=== PATIENT | female | born 1965 | race Caucasian/White ===

== ENCOUNTER → 2020-03-18 10:32 | Outpatient (BNVA) | payer OTHER, SELFPAY | PROVIDERS: PCP Internal Medicine; Visit Provider Internal Medicine Cardiovascular Disease | DX: R06.02 Shortness of breath (principal); I48.19 Other persistent atrial fibrillation; I45.6 Pre-excitation syndrome; I42.1 Obstructive hypertrophic cardiomyopathy | CPT/HCPCS: 93005; 99212 ==

== ENCOUNTER 2020-03-18 11:24 | Emergency (ER) | payer OTHER, SELFPAY ==
[2020-03-18] VITALS (15 sets, daily range): BP systolic 114–173; BP diastolic 62–97; PULSE 63–114; RESP 2–22; TEMP 36.6; O2SAT 89–98; BMI 17.4
--- NOTE | 2020-03-18 11:36 | ECG_ITS ---
Test Reason : POST CV Blood Pressure : / mmHG Vent. Rate : 113 BPM Atrial Rate : 113 BPM P-R Int : 144 ms QRS Dur : 158 ms QT Int : 414 ms P-R-T Axes : 088 -30 182 degrees QTc Int : 567 ms Sinus tachycardia Left axis deviation Left ventricular hypertrophy with QRS widening and repolarization abnormality Abnormal ECG When compared with ECG of 21-JUN-2017 20:32, Vent. rate has increased BY 47 BPM Jozmy-Ryshlcoyi-Xpfuf is no longer Present Referred By: Janneth Napier Electronically Signed By:JORY LOCO
--- NOTE | 2020-03-18 11:36 | XR_ITS ---
EXAMINATION: XR CHEST CLINICAL INFORMATION: Dyspnea. COMPARISON: CT chest and chest x-ray 09/22/2018. TECHNIQUE: Frontal view of the chest was obtained. FINDINGS: The lungs are well expanded with increased bilateral interstitial markings. No consolidation mass seen. Heart size and pulmonary vascularity are normal. There are mediastinal ronal and mediastinal sutures from previous intervention. No gross bony abnormality seen. XR/XR chest 1V IMPRESSION: Bilateral increased interstitial markings, unchanged to previous study 09/22/2018. Differential diagnoses include interstitial pneumonitis, edema or scarring.
--- NOTE | 2020-03-18 11:38 | ED_ITS ---
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, HOCM s/p septal myomectomy 2019, on chronic AC therapy went to cardiology with c/o dyspnea and feeling tired with palpitations referred to ED for cardioversion MD complaint: irregular heart beat and atrial fibrillation Onset (ago): week(s) (1) Duration: constant Severity: moderate Context: occurred during rest and occurred during exertion Arrhythmia history: atrial fibrillation Associated symptoms: shortness of breath and anxiety Related Data Home Medications Medication Instructions Recorded Confirmed apixaban 5 mg tablet 5 mg PO BID 03/18/20 03/18/20 methadone 5 mg/5 mL oral solution 65 mg PO DAILY ml 03/18/20 Previous Rx's Medication Instructions Recorded amiodarone 200 mg PO BID 14 Days #28 tab 03/18/20 Allergies Allergy/AdvReac Type Severity Reaction Status Date / Time No Known Allergies Allergy Verified 03/18/20 10:55 [No Known Allergies*] Review of Systems Review of Systems: Constitutional : No Fever, No Chills, pos fatigue ENT/Mouth : No sore throat, No Rhinorrhea, No Swallowing Difficulty Eyes: No Eye Pain, No Swelling, No Redness Cardiovascular : No Chest Pain, positive SOB, No Orthopnea, no Edema Respiratory : No Cough, No Sputum, No Wheezing, positive dyspnea Gastrointestinal : No Nausea, No Vomiting, No Diarrhea, No abdominal Pain, No Hematochezia, No Melena Genitourinary : No Dysuria, No Urinary Frequency, No Hematuria Musculoskeletal : No joint pain, No Myalgias Skin : No Skin Lesions, No rash Neuro : No Weakness, No Numbness, No Dizziness, No Headache Psych : pos Anxiety/Panic, No Depression Heme/Lymph: No Bruising, No Lymphadenopathy Endocrine : No Polyuria, No Polydipsia All other systems reviewed and are negative [facility] Past Medical History Attestation statement: The following information was validated with the patient. Medical History HOCM (hypertrophic obstructive cardiomyopathy) Paroxysmal atrial fibrillation WPW (Jqmdm-Rijopgstx-Wisnz syndrome) Surgical History History of heart surgery (~07/02/18) S/P ventricular septal myectomy Family History Family History (Updated 03/18/20 @ 10:56 by DAKOTAH Fragoso) Father COPD (chronic obstructive pulmonary disease) Heart disease Mother Heart disease Paternal Grandmother No problems noted. Social History Social History Alcohol intake: unknown Smoking Status: Current every day smoker Cigarettes Per Day: 6 Use of substances other than those prescribed or required for medical reasons: No Advance Directives: No Advance Directives Information Provided: Yes Physical Exam Vital Signs: Vital Signs: Last Vital Signs Temp 97.9 F 03/18/20 11:50 Pulse 92 03/18/20 15:09 Resp 20 03/18/20 15:01 BP 143/76 H 03/18/20 15:09 Pulse Ox 98 03/18/20 15:01 Body Mass Index 17.4 Appearance: Alert. Oriented X3. No acute distress. Eyes: Pupils equal, round and reactive to light. ENT: Pharynx normal. Neck: Normal inspection. Neck supple. CVS: rapid irreguar heart rate and rhythm. Pulses normal. Respiratory: No respiratory distress. Breath sounds normal. Abdomen: Soft and nontender. Skin: Skin warm and dry. Normal skin color. Normal skin turgor. Extremities: No lower extremity edema. No calf ttp Neuro: Oriented X 3. No motor deficit. No sensory deficit. Course Course Course Narrative: cardiology sent post cardioversion EKG - still feels flutter present wants procainamide drip started repeat EKG, NSR confirmed with cardiology hold gtt start on PO amiodarone 200mg PO BID for outpatient treatment, discussed BNP (likely due to afib and diastolic dysfunction okay for DC) HR controlled, feels better, BP stable 98% on RA at this time, much more awake, feels fine trop due to demand has no chest pain doubt ACS Procedures Procedure Narrative Procedure Narrative: consent obtained front to back placement of pads 100J synchronized cardioversion done - no complications, EKG ?LBBB with persistent flutter vs LBBB with sinus tach Procedural Sedation Indication: other (cardioversion) ASA Class: II Time of Last PO Intake: 10:00 (pm) Preparation: taxonomist applied, pulse oximeter, capnometry used, supplemental O2 applied, suction/airway equipment at bedside and IV secured Midazolam: IV Ketamine: IV Ketamine dose (mg): 75 Patient Tolerated Procedure: well Complications: none Additional Comments: used 0.5mg versed as pretreatment MDM - Arrhythmia/Palpitations MDM Narrative Medical decision making narrative: 54 yo female with WPW sent over for symptomatic afib on chronic AC therapy with strict compliance - plan to cardiovert in ED and possibly start on procainamide if she does not convert - will attempt cardioversion, patient NPO since last night Lab Data Result diagrams: 03/18/20 12:18 03/18/20 12:18 Labs: Lab Results 03/18/20 03/18/20 03/18/20 Range/Units 12:18 12:18 12:18 WBC 6.5 (4.8-10.8) X10*3/uL RBC 5.81 H (4.20-5.50) X10*6/uL Hgb 15.6 (12.0-16.0) g/dl Hct 48.8 H (37-47) % MCV 84.0 (80-98) fL MCH 26.9 L (27.0-33.0) pg MCHC 32.0 (31.0-35.0) g/dl RDW 16.4 H (11.0-16.0) % Plt Count 221 (160-400) X10*3/uL MPV Not Reportable Immature Gran % (Auto) 0.5 H (0.0-0.4) % Neut % (Auto) 65.3 (45-73) % Lymph % (Auto) 22.7 (20-40) % [place] % (Auto) 7.7 (2-11) % Eos % (Auto) 2.3 (0-4) % Baso % (Auto) 1.5 (0-2) % Lymph # (Auto) 1.5 (1.2-4.9) X10*3/uL [place] # (Auto) 0.5 (0.1-1.2) X10*3/uL Eos # (Auto) 0.2 (0.0-0.4) X10*3/uL Baso # (Auto) 0.1 (0.0-0.2) X10*3/uL Abs Immat Gran (auto) 0.03 (0.00-0.03) X10*3/uL Absolute Neuts (auto) 4.2 (2.0-8.3) X10*3/uL Absolute Nucleated RBC 0.000 (0.0-0.012) X10*3/uL Nucleated RBC % (auto) 0.0 (0.0-0.2) /100WBC PT 24.8 H (10.8-13.0) SEC INR 2.1 H (0.9-1.1) APTT 46.8 H (24.1-38.0) SEC Sodium 136 (135-145) mmol/L Potassium 4.8 (3.3-5.1) mmol/l Chloride 101 (96-108) mmol/L Carbon Dioxide 24 (22-29) mmol/L Anion Gap 16 (12-20) BUN 9 (9-16) mg/dL Creatinine 0.99 (0.5-1.4) mg/dL Estim Creat Clear Calc 43.9 Estimated GFR 58 Random Glucose 108 (60-115) mg/dL Calcium 9.7 (8.4-10.2) mg/dL Magnesium 2.5 (1.6-2.6) mg/dL Total Bilirubin 1.3 H (0.0-1.0) mg/dL Direct Bilirubin 0.6 H (0.0-0.5) mg/dL AST 20 (5-31) U/L ALT 16 (0-31) U/L Alkaline Phosphatase 146 H (39-117) U/L Troponin I High Sens (<3.5-17.0) ng/L B-Natriuretic Peptide Total Protein 7.9 (6.5-8.0) g/dL Albumin 3.9 (3.5-5.0) g/dL COVID-19 (RY) (Negative) COVID-19 Clin Com 03/18/20 03/18/20 03/18/20 Range/Units 12:18 12:18 12:18 WBC (4.8-10.8) X10*3/uL RBC (4.20-5.50) X10*6/uL Hgb (12.0-16.0) g/dl Hct (37-47) % MCV (80-98) fL MCH (27.0-33.0) pg MCHC (31.0-35.0) g/dl RDW (11.0-16.0) % Plt Count (160-400) X10*3/uL MPV Immature Gran % (Auto) (0.0-0.4) % Neut % (Auto) (45-73) % Lymph % (Auto) (20-40) % [place] % (Auto) (2-11) % Eos % (Auto) (0-4) % Baso % (Auto) (0-2) % Lymph # (Auto) (1.2-4.9) X10*3/uL [place] # (Auto) (0.1-1.2) X10*3/uL Eos # (Auto) (0.0-0.4) X10*3/uL Baso # (Auto) (0.0-0.2) X10*3/uL Abs Immat Gran (auto) (0.00-0.03) X10*3/uL Absolute Neuts (auto) (2.0-8.3) X10*3/uL Absolute Nucleated RBC (0.0-0.012) X10*3/uL Nucleated RBC % (auto) (0.0-0.2) /100WBC PT (10.8-13.0) SEC INR (0.9-1.1) APTT (24.1-38.0) SEC Sodium (135-145) mmol/L Potassium (3.3-5.1) mmol/l Chloride (96-108) mmol/L Carbon Dioxide (22-29) mmol/L Anion Gap (12-20) BUN (9-16) mg/dL Creatinine (0.5-1.4) mg/dL Estim Creat Clear Calc Estimated GFR Random Glucose (60-115) mg/dL Calcium (8.4-10.2) mg/dL Magnesium (1.6-2.6) mg/dL Total Bilirubin (0.0-1.0) mg/dL Direct Bilirubin (0.0-0.5) mg/dL AST (5-31) U/L ALT (0-31) U/L Alkaline Phosphatase (39-117) U/L Troponin I High Sens 30.4 H (<3.5-17.0) ng/L B-Natriuretic Peptide Cancelled 1079 H Total Protein (6.5-8.0) g/dL Albumin (3.5-5.0) g/dL COVID-19 (RY) Negative (Negative) COVID-19 Clin Com See Note ECG Data Attestation: I personally reviewed and interpreted this ECG as follows: ECG interpretation date: 03/18/20 ECG interpretation time: 12:24 Interpretation: Rate: 113 Rhythm: tachycardia, regular, wide complex [place]: left LBBB ST T wave : inverted t waves lateral leads, no GENNA qTC: prolonged prior studies: changed from prior The study has been interpreted contemporaneously by me. . EKG #2 Rate: 99 Rhythm: NSR [place]: left Normal P waves. Normal DANIELA. LBBB ST T wave : inverted t waves lateral leads V2-V4, no GENNA qTC: prolonged prior studies: changed from prior The study has been interpreted contemporaneously by me. . Critical Care Time Critical Care Time Critical Care Time: Yes Total Critical Care Time: 60 Attestation: I attest to this time spent taking care of the patient Discharge Plan Discharge Clinical Impression: Acute dyspnea, Atrial fibrillation with rapid ventricular response Patient Disposition: Home, Self-Care Instructions: A-fib (Atrial Fibrillation) (ED), Moderate Sedation (ED), Cardioversion (DC) Additional Instructions: return to ED for any worsening symptoms or concerns continue to take your medications Prescriptions: New amiodarone 200 mg tablet 200 mg PO BID 14 Days Qty: 28 RF: 0 No Action Eliquis 5 mg tablet 5 mg PO BID RF: 0 methadone 5 mg/5 mL solution 65 mg PO DAILY RF: 0 Referrals: Ned Villalobos MD [Physician] - 2 days
[2020-03-18] MEDS: Ketamine HCl/NS 50 MG/5 ML SYRINGE IVPUSH (12:01)
[2020-03-18] MEDS: Midazolam HCl/PF 2 MG/2 ML VIAL 0.5 MG IVPUSH (12:01)
[2020-03-18] MEDS: Ketamine HCl/NS 50 MG/5 ML SYRINGE 25 MG IVPUSH (12:02)
--- NOTE | 2020-03-18 12:09 | PC.NURSE ---
Pt presented in a rapid a-fib with ectopy. An IV was placed and she was given versed and ketamine. A synchronized cardioversion with 100j was performed by . Pt converted to SR with visable p waives but HR increased with a question of underlying flutter per embedded firmware developer. Pt remains disassociated with ketamine but appears comfortable. VSS.
[2020-03-18 12:26] LABS: MANUAL DIFF FLAG NO
[2020-03-18 12:31] LABS: Basophils Absolute Auto 0.1 X10*3/uL (0.0-0.2); Basophils Percent Auto 1.5 % (0-2); Eosinophils Absolute Auto 0.2 X10*3/uL (0.0-0.4); Eosinophils Percent Auto 2.3 % (0-4); Hematocrit 48.8 % (37-47); Hemoglobin 15.6 g/dl (12.0-16.0); Imm Gran Abs Auto 0.03 X10*3/uL (0.00-0.03); Imm Gran Pct Auto 0.5 % (0.0-0.4); Lymphocytes Absolute Auto 1.5 X10*3/uL (1.2-4.9); Lymphocytes Percent Auto 22.7 % (20-40); Mean Corpuscular Hemoglobin 26.9 pg (27.0-33.0); Monocytes Absolute Auto 0.5 X10*3/uL (0.1-1.2); Monocytes Percent Auto 7.7 % (2-11); Neutrophils Absolute Auto 4.2 X10*3/uL (2.0-8.3); Neutrophils Percent Auto 65.3 % (45-73); Platelet Count 221 X10*3/uL (160-400); Red Blood Count 5.81 X10*6/uL (4.20-5.50); Red Cell Distribution Width 16.4 % (11.0-16.0); White Blood Count 6.5 X10*3/uL (4.8-10.8)
--- NOTE | 2020-03-18 12:31 | PC.NURSE ---
HR/Rhythm appears to be NSR. Dr Napier aware, repeat EKG being done.
[2020-03-18 12:32] LABS: INTERNATIONAL NORM RATIO 2.1 (0.9-1.1); Prothrombin Time 24.8 SEC (10.8-13.0)
--- NOTE | 2020-03-18 12:32 | ECG_ITS ---
Test Reason : REPEAT Blood Pressure : / mmHG Vent. Rate : 099 BPM Atrial Rate : 099 BPM P-R Int : 128 ms QRS Dur : 144 ms QT Int : 432 ms P-R-T Axes : 085 -26 164 degrees QTc Int : 554 ms Sinus rhythm with Premature atrial complexes Preexcitation patten noted Abnormal ECG When compared with ECG of 18-MAR-2020 12:00, No significant changes seen Referred By: Janneth Napier Electronically Signed By:JORY LOCO
[2020-03-18 12:35] LABS: Partial Thromboplastin Time 46.8 SEC (24.1-38.0)
[2020-03-18] MEDS: LORazepam 2 MG/ML VIAL 0.5 MG IVPUSH (12:44)
[2020-03-18 12:45] LABS: COVID-19 Test Negative (Negative)
--- NOTE | 2020-03-18 12:47 | PC.NURSE ---
Pt had an episode of nausea and vomiting. Dr Napier aware, and placed orders. Pt medicated per emar.
[2020-03-18 12:57] LABS: Alanine Aminotransferase 16 U/L (0-31); Albumin Level 3.9 g/dL (3.5-5.0); Alkaline Phosphatase 146 U/L (39-117); Anion Gap 16 (12-20); Aspartate Amino Transferase 20 U/L (5-31); Bilirubin Direct 0.6 mg/dL (0.0-0.5); Bilirubin Total 1.3 mg/dL (0.0-1.0); Blood Urea Nitrogen 9 mg/dL (9-16); Calcium 9.7 mg/dL (8.4-10.2); Carbon Dioxide 24 mmol/L (22-29); Chloride 101 mmol/L (96-108); Creatinine Clr Calc Pharmacy 43.9; Estimated Glomerular Filt Rate 58; Glucose Random 108 mg/dL (60-115); Magnesium 2.5 mg/dL (1.6-2.6); Potassium 4.8 mmol/l (3.3-5.1); Sodium 136 mmol/L (135-145); Total Protein 7.9 g/dL (6.5-8.0)
[2020-03-18 13:07] LABS: B Type Natriuretic Peptide 1079 pg/mL (<100); Troponin-I High Sensitivity 30.4 ng/L (<3.5-17.0)
--- NOTE | 2020-03-18 13:41 | PC.NURSE ---
lungs - diminished all lobes.
--- NOTE | 2020-03-18 13:41 | PC.NURSE ---
pt has a non-prod cough. aware
[2020-03-18] MEDS: Amiodarone HCL 200 MG TABLET PO (15:09)
== END 2020-03-18 15:45 | disposition home or self-care (01) ==
PROVIDERS: Emergency Provider Emergency Medicine; PCP Internal Medicine
DX: I48.20 Chronic atrial fibrillation, unspecified (principal); R06.00 Dyspnea, unspecified; Z20.822 Contact with and (suspected) exposure to COVID-19; Z79.899 Other long term (current) drug therapy
CPT/HCPCS: 36415; 71045; 80048; 80076; 83735; 83880; 84484; 85025; 85610; 85730; 87635; 93005; 96374; 96375; 99285; 99291; J2060; J2250

== ENCOUNTER → 2020-04-01 12:53 | Outpatient (BNVA) | payer OTHER, SELFPAY | PROVIDERS: PCP Internal Medicine; Visit Provider Nurse Practitioner Family | DX: I48.92 Unspecified atrial flutter (principal); I48.19 Other persistent atrial fibrillation; I42.1 Obstructive hypertrophic cardiomyopathy; I45.6 Pre-excitation syndrome | CPT/HCPCS: 93005; 99212 ==

== ENCOUNTER 2020-04-30 08:51 | Outpatient (REF) | payer OTHER, SELFPAY ==
[2020-04-30 09:56] LABS: MANUAL DIFF FLAG SCAN; Mean Corpuscular Hemoglobin 25.9 pg (27.0-33.0); SCAN SMEAR FLAG 1
[2020-04-30 09:58] LABS: Basophils Absolute Auto 0.1 X10*3/uL (0.0-0.2); Basophils Percent Auto 0.6 % (0-2); Eosinophils Absolute Auto 0.1 X10*3/uL (0.0-0.4); Eosinophils Percent Auto 0.7 % (0-4); Hematocrit 40.2 % (37-47); Hemoglobin 12.9 g/dl (12.0-16.0); Imm Gran Abs Auto 0.05 X10*3/uL (0.00-0.03); Imm Gran Pct Auto 0.5 % (0.0-0.4); Lymphocytes Absolute Auto 1.4 X10*3/uL (1.2-4.9); Lymphocytes Percent Auto 13.6 % (20-40); Mean Corpuscular HGB Conc 32.1 g/dl (31.0-35.0); Mean Corpuscular Volume 80.6 fL (80-98); Monocytes Absolute Auto 0.7 X10*3/uL (0.1-1.2); Monocytes Percent Auto 6.3 % (2-11); Neutrophils Absolute Auto 8.3 X10*3/uL (2.0-8.3); Neutrophils Percent Auto 78.3 % (45-73); PLT CLUMP 1; Red Blood Count 4.99 X10*6/uL (4.20-5.50); Red Cell Distribution Width 17.2 % (11.0-16.0)
[2020-04-30 10:02] LABS: PLT ABN DIST 1
[2020-04-30 10:04] LABS: INTERNATIONAL NORM RATIO 2.8 (0.9-1.1); Prothrombin Time 33.5 SEC (10.8-13.0)
[2020-04-30 10:16] LABS: Platelet Count 160 X10*3/uL (160-400); White Blood Count 10.6 X10*3/uL (4.8-10.8)
[2020-04-30 10:17] LABS: SLIDE REVIEW VERIFIED
[2020-04-30 10:25] LABS: Anion Gap 15 (12-20); Blood Urea Nitrogen 17 mg/dL (9-16); Calcium 9.4 mg/dL (8.4-10.2); Carbon Dioxide 20 mmol/L (22-29); Chloride 103 mmol/L (96-108); Estimated Glomerular Filt Rate > 60; Glucose Random 106 mg/dL (60-115); Potassium 4.4 mmol/L (3.3-5.1); Sodium 134 mmol/L (135-145)
== END 2020-04-30 08:52 | disposition home or self-care (01) ==
LOC: HO.LAB 08:51
PROVIDERS: PCP Internal Medicine; Visit Provider Internal Medicine Cardiovascular Disease
DX: Z01.810 Encounter for preprocedural cardiovascular examination (principal)
CPT/HCPCS: 36415; 80048; 85025; 85610

== ENCOUNTER 2020-05-30 21:52 | Emergency (ER) | payer OTHER, SELFPAY ==
--- NOTE | 2020-05-30 | ECG_ITS ---
Test Reason : REPEAT Blood Pressure : / mmHG Vent. Rate : 055 BPM Atrial Rate : 055 BPM P-R Int : 128 ms QRS Dur : 158 ms QT Int : 530 ms P-R-T Axes : 080 -28 167 degrees QTc Int : 507 ms Sinus bradycardia Left ventricular hypertrophy with repolizeration abnormality. Ventricular pre-excitation, WPW pattern type B Abnormal ECG When compared with ECG of 30-MAY-2020 22:17, Cqkcu-Lnqyigfnh-Kvpvb is now Present Referred By: Millie Krueger Electronically Signed By:Osvaldo Rai
--- NOTE | 2020-05-30 | ECG_ITS ---
Test Reason : SHORTNESS OF BREATH Blood Pressure : / mmHG Vent. Rate : 054 BPM Atrial Rate : 054 BPM P-R Int : 126 ms QRS Dur : 160 ms QT Int : 534 ms P-R-T Axes : 093 -28 165 degrees QTc Int : 506 ms Sinus bradycardia Left ventricular hypertrophy with QRS widening and repolarization abnormality Inferior infarct , age undetermined Abnormal ECG When compared with ECG of 18-MAR-2020 12:32, Premature atrial complexes are no longer Present Vent. rate has decreased BY 45 BPM Referred By: Generic ED Physician Electronically Signed By:Osvaldo Rai
--- NOTE | ~2020-05-30 | XR_ITS ---
EXAMINATION: CHEST 1 VIEW CLINICAL INFORMATION: Shortness of breath. COMPARISON: 03/18/2020. TECHNIQUE: An AP view of the chest is provided. FINDINGS: The cardiac silhouette is stable. Intact midline sternal wires are present. The mediastinal and hilar contours are unremarkable. There are neither pleural effusions nor pneumothoraces. Diffuse interstitial prominence is slightly more prominent than on the prior exam. There are no consolidations. The osseous structures are stable. XR/XR chest 1V IMPRESSION: No consolidations. Slight interval increase in prominence of chronic interstitial disease.
[2020-05-30 21:56] VITALS: PULSE 65; O2SAT 98
[2020-05-30 22:08] VITALS: BP 128/91; PULSE 78; RESP 20; TEMP 36.6; O2SAT 95; BMI 18.8
[2020-05-30 23:09] VITALS: BP 154/76; PULSE 60; RESP 15; TEMP 37.1; O2SAT 95
[2020-05-30 23:22] VITALS: BP 146/68; PULSE 58; RESP 18; O2SAT 95
[2020-05-31] VITALS: BP 126/55; PULSE 58; RESP 16; O2SAT 93
[2020-05-31 00:16] LABS: Eosinophils Absolute Auto 0.1 X10*3/uL (0.0-0.4); Imm Gran Abs Auto 0.02 X10*3/uL (0.00-0.03); Imm Gran Pct Auto 0.3 % (0.0-0.4); MANUAL DIFF FLAG SCAN; SCAN SMEAR FLAG 1
[2020-05-31 00:18] LABS: Basophils Absolute Auto 0.1 X10*3/uL (0.0-0.2); Eosinophils Percent Auto 1.6 % (0-4); Hemoglobin 13.4 g/dl (12.0-16.0); Lymphocytes Absolute Auto 1.5 X10*3/uL (1.2-4.9); Mean Corpuscular HGB Conc 30.5 g/dl (31.0-35.0); Mean Corpuscular Hemoglobin 24.2 pg (27.0-33.0); Mean Corpuscular Volume 79.6 fL (80-98); Monocytes Absolute Auto 0.5 X10*3/uL (0.1-1.2); Monocytes Percent Auto 7.1 % (2-11); Neutrophils Absolute Auto 5.1 X10*3/uL (2.0-8.3); Platelet Count 178 X10*3/uL (160-400); Red Blood Count 5.53 X10*6/uL (4.20-5.50); Red Cell Distribution Width 17.4 % (11.0-16.0); White Blood Count 7.3 X10*3/uL (4.8-10.8)
[2020-05-31 00:23] LABS: PLT ABN DIST 1
[2020-05-31 00:27] LABS: SLIDE REVIEW VERIFIED
[2020-05-31 00:29] LABS: Alanine Aminotransferase 11 U/L (0-31); Alkaline Phosphatase 147 U/L (39-117); Anion Gap 12 (12-20); Aspartate Amino Transferase 20 U/L (5-31); Bilirubin Direct 0.2 mg/dL (0.0-0.5); Bilirubin Total 0.6 mg/dL (0.0-1.0); Blood Urea Nitrogen 5 mg/dL (9-16); Calcium 9.1 mg/dL (8.4-10.2); Carbon Dioxide 27 mmol/L (22-29); Chloride 103 mmol/L (96-108); Creatinine Clr Calc Pharmacy 49.8; Estimated Glomerular Filt Rate > 60; Glucose Random 96 mg/dL (60-115); Sodium 138 mmol/L (135-145); Total Protein 7.9 g/dL (6.5-8.0)
[2020-05-31 00:38] LABS: B Type Natriuretic Peptide 2640 pg/mL (<100); Troponin-I High Sensitivity 32.3 ng/L (<3.5-17.0)
[2020-05-31 00:39] LABS: INTERNATIONAL NORM RATIO 1.9 (0.9-1.1); Prothrombin Time 23.1 SEC (10.8-13.0)
[2020-05-31] MEDS: Furosemide 40 MG/4 ML VIAL IVPUSH (01:58)
[2020-05-31 02:00] VITALS: BP 133/59; PULSE 57; RESP 16; O2SAT 93
--- NOTE | 2020-05-31 03:07 | ED.SOB ---
HPI - SOB/Dyspnea General Chief Complaint: Dyspnea Stated Complaint: anxiety Time Seen by Provider: 05/30/20 22:20 Source: patient Mode of arrival: ambulatory Limitations: no limitations History of Present Illness HPI Narrative: Patient comes to the emergency room complaining of new onset of orthopnea, bilateral edema, mild shortness of breath on exertion. Patient states that she has no chest pain, no palpitations, no cough, no shortness of breath at rest. Patient had a cardiac ablation on May 06 for atrial fibrillation and Cbltc-Sbltgpbwz-Diwtr, she is currently on a Holter monitor. Patient states she is on Eliquis. Related Data Home Medications Medication Instructions Recorded Confirmed apixaban 5 mg tablet 5 mg PO BID 03/18/20 05/30/20 methadone 5 mg/5 mL oral solution 65 mg PO DAILY ml 03/18/20 05/30/20 albuterol 90 mcg INHALATION Q4-6H PRN 05/30/20 05/30/20 Previous Rx's Medication Instructions Recorded amiodarone 200 mg PO BID 14 Days #28 tab 03/18/20 furosemide [Lasix] 10 mg PO BID #10 tab 05/31/20 Allergies Allergy/AdvReac Type Severity Reaction Status Date / Time No Known Allergies Allergy Verified 03/18/20 10:55 [No Known Allergies*] Review of Systems Review of Systems: Constitutional : No Weight loss, No Fever, No Chills, No Night Sweats, No Fatigue, No Malaise ENT/Mouth : No Hearing loss, No Ear Pain, No Nasal Congestion, No Sinus Pain, No Hoarseness, No sore throat, No Rhinorrhea, No Swallowing Difficulty Eyes: No Eye Pain, No Swelling, No Redness, No Foreign Body, No Discharge, No Vision Changes Cardiovascular : No Chest Pain, complaining of Dyspnea on Exertion and Orthopnea, new onset bilateral lower extremity edema, no palpitations, no shortness of breath at rest Respiratory : No Cough, No Sputum, No Wheezing, No Smoke Exposure Gastrointestinal : No Nausea, No Vomiting, No Diarrhea, No Constipation, No abdominal Pain, No Hematochezia, No Melena Genitourinary : no irregular bleeding, No Dysuria, No Urinary Frequency, No Hematuria, No Urinary Incontinence, No Urgency, No Flank Pain, No Urinary Flow Changes, No Hesitancy Musculoskeletal : No joint pain, No Myalgias, No Joint Swelling Skin : No Skin Lesions, No rash Neuro : No Weakness, No Numbness, No Paresthesias, No Loss of Consciousness, No Dizziness, No Headache Psych : No Anxiety/Panic, No Depression, No SI/HI/AH/VH, No Social Issues, Heme/Lymph: No Bruising, No Bleeding,No Lymphadenopathy Endocrine : No Polyuria, No Polydipsia, No Temperature Intolerance [facility] Past Medical History Medical History (Updated 05/31/20 @ 03:23 by Millie Krueger MD) HOCM (hypertrophic obstructive cardiomyopathy) Paroxysmal atrial fibrillation WPW (Ajrso-Sjmcqgtnj-Qvdhe syndrome) Surgical History (Updated 05/31/20 @ 03:13 by Millie Krueger MD) H/O cardiac radiofrequency ablation History of heart surgery (~07/02/18) S/P ventricular septal myectomy Family History Family History Father COPD (chronic obstructive pulmonary disease) Heart disease Mother Heart disease Paternal Grandmother No problems noted. Social History Social History Alcohol intake: unknown Smoking Status: Current every day smoker Cigarettes Per Day: 6 Use of substances other than those prescribed or required for medical reasons: Yes Substance Use Type: Heroin Last Used Substance: Weeks (ago) Advance Directives: No Advance Directives Information Provided: No Physical Exam Vital Signs: Vital Signs: Last Vital Signs Temp 98.8 F 05/30/20 23:09 Pulse 57 05/31/20 02:00 Resp 16 05/31/20 02:00 BP 133/59 L 05/31/20 02:00 Pulse Ox 93 05/31/20 02:00 Body Mass Index 18.8 Appearance: Alert. Oriented X3. No acute distress. Eyes: Pupils equal, round and reactive to light. ENT: Pharynx normal. Neck: Normal inspection. Neck supple. No lymph nodes noted. No crepitus CVS: Normal heart rate and rhythm. Pulses normal. Normal S1 and S2 Respiratory: No respiratory distress. Mild bilateral crackles No Wheezing. No rales Abdomen: Soft and nontender. No rigidity. No distention. good BS x4 Skin: Skin warm and dry. Normal skin color. Extremities: Bilateral lower extremity edema, mostly on both feet, +2, +1 at the ankle and above bilaterally Neuro: Oriented X 3. No motor deficit. No sensory deficit. Moving all extermities. No slurred speech. Course Course Course Narrative: Patient's EKG shows no changes from February 2020. Patient's troponin 32.3, seems that this is the patient's baseline, has had prior troponins at the same level. It was noted that patient is bradycardic, patient states that since she had her cardiac ablation on May 06, she is known to be bradycardic but asymptomatic Troponin 2 has been pending for 2 hours, at this time the nursing staff is significantly reduced and we do not have any techs in the ER at all I discussed the patient with Dr. Barber, patient is being admitted for CHF exacerbation. Patient received 40 mg of IV Lasix. Patient remains asymptomatic, only become short of breath with exertion. Patient is not tachycardic, not hypoxic, no lower extremity pain, patient is on Eliquis, PE is not suspected at this time Patient states that she feels very well, has been walking to the bathroom, and around the ED without feeling short of breath. Patient's nurse walked with the patient measuring her oxygen saturation while walking, lowest oxygen saturation 94%, patient states that she is not short of breath anymore. Patient also states that the swelling in her legs resolved after Lasix. I asked the patient to stay in the hospital, patient declined, asks to be discharged. Patient says she has an appointment with her quality assurance analyst in 3 days, I asked the patient to return to the emergency room she has any new symptoms at any time. Patient does not have any Lasix at home, a prescription will be sent to her pharmacy. I discussed with the patient the risks of leaving against medical advice including . Patient states that she is aware, states that if she has any new or worsening symptoms, she will return immediately to the emergency room MDM - SOB/Dyspnea Lab Data Result diagrams: 05/30/20 22:30 05/30/20 22:30 Labs: Lab Results 05/30/20 05/30/20 05/30/20 Range/Units 22:30 22:30 22:30 WBC 7.3 (4.8-10.8) X10*3/uL RBC 5.53 H (4.20-5.50) X10*6/uL Hgb 13.4 (12.0-16.0) g/dl Hct 44.0 (37-47) % MCV 79.6 L (80-98) fL MCH 24.2 L (27.0-33.0) pg MCHC 30.5 L (31.0-35.0) g/dl RDW 17.4 H (11.0-16.0) % Plt Count 178 (160-400) X10*3/uL MPV Not Reportable Immature Gran % (Auto) 0.3 (0.0-0.4) % Neut % (Auto) 69.0 (45-73) % Lymph % (Auto) 21.0 (20-40) % Dickson % (Auto) 7.1 (2-11) % Eos % (Auto) 1.6 (0-4) % Baso % (Auto) 1.0 (0-2) % Lymph # (Auto) 1.5 (1.2-4.9) X10*3/uL Dickson # (Auto) 0.5 (0.1-1.2) X10*3/uL Eos # (Auto) 0.1 (0.0-0.4) X10*3/uL Baso # (Auto) 0.1 (0.0-0.2) X10*3/uL Abs Immat Gran (auto) 0.02 (0.00-0.03) X10*3/uL Absolute Neuts (auto) 5.1 (2.0-8.3) X10*3/uL Absolute Nucleated RBC 0.000 (0.0-0.012) X10*3/uL Nucleated RBC % (auto) 0.0 (0.0-0.2) /100WBC Smear Tech's Comments VERIFIED PT 23.1 H D (10.8-13.0) SEC INR 1.9 H (0.9-1.1) Sodium 138 (135-145) mmol/L Potassium 4.0 (3.3-5.1) mmol/L Chloride 103 (96-108) mmol/L Carbon Dioxide 27 (22-29) mmol/L Anion Gap 12 (12-20) BUN 5 L D (9-16) mg/dL Creatinine 0.94 (0.5-1.4) mg/dL Estim Creat Clear Calc 49.8 Estimated GFR > 60 Random Glucose 96 (60-115) mg/dL Calcium 9.1 (8.4-10.2) mg/dL Total Bilirubin 0.6 (0.0-1.0) mg/dL Direct Bilirubin 0.2 (0.0-0.5) mg/dL AST 20 (5-31) U/L ALT 11 (0-31) U/L Alkaline Phosphatase 147 H (39-117) U/L Troponin I High Sens (<3.5-17.0) ng/L B-Natriuretic Peptide (<100) pg/mL Total Protein 7.9 (6.5-8.0) g/dL Albumin 4.0 (3.5-5.0) g/dL 05/30/20 05/31/20 Range/Units 22:30 03:09 WBC (4.8-10.8) X10*3/uL RBC (4.20-5.50) X10*6/uL Hgb (12.0-16.0) g/dl Hct (37-47) % MCV (80-98) fL MCH (27.0-33.0) pg MCHC (31.0-35.0) g/dl RDW (11.0-16.0) % Plt Count (160-400) X10*3/uL MPV Immature Gran % (Auto) (0.0-0.4) % Neut % (Auto) (45-73) % Lymph % (Auto) (20-40) % Dickson % (Auto) (2-11) % Eos % (Auto) (0-4) % Baso % (Auto) (0-2) % Lymph # (Auto) (1.2-4.9) X10*3/uL Dickson # (Auto) (0.1-1.2) X10*3/uL Eos # (Auto) (0.0-0.4) X10*3/uL Baso # (Auto) (0.0-0.2) X10*3/uL Abs Immat Gran (auto) (0.00-0.03) X10*3/uL Absolute Neuts (auto) (2.0-8.3) X10*3/uL Absolute Nucleated RBC (0.0-0.012) X10*3/uL Nucleated RBC % (auto) (0.0-0.2) /100WBC Smear Tech's Comments PT (10.8-13.0) SEC INR (0.9-1.1) Sodium (135-145) mmol/L Potassium (3.3-5.1) mmol/L Chloride (96-108) mmol/L Carbon Dioxide (22-29) mmol/L Anion Gap (12-20) BUN (9-16) mg/dL Creatinine (0.5-1.4) mg/dL Estim Creat Clear Calc Estimated GFR Random Glucose (60-115) mg/dL Calcium (8.4-10.2) mg/dL Total Bilirubin (0.0-1.0) mg/dL Direct Bilirubin (0.0-0.5) mg/dL AST (5-31) U/L ALT (0-31) U/L Alkaline Phosphatase (39-117) U/L Troponin I High Sens 32.3 H 41.8 H (<3.5-17.0) ng/L B-Natriuretic Peptide 2640 H (<100) pg/mL Total Protein (6.5-8.0) g/dL Albumin (3.5-5.0) g/dL Imaging Data Chest x-ray: Radiologist's impression: The cardiac silhouette is stable. Intact midline sternal wires are present. The mediastinal and hilar contours are unremarkable. There are neither pleural effusions nor pneumothoraces. Diffuse interstitial prominence is slightly more prominent than on the prior exam. There are no consolidations. The osseous structures are stable. XR/XR chest 1V IMPRESSION: No consolidations. Slight interval increase in prominence of chronic interstitial disease. ECG Data Attestation: I personally reviewed and interpreted this ECG as follows: (Patient has significant left ventricular hypertrophy, chronic ST segment elevation in V1,, significant T-wave inversion and depression in V4 through V6, no acute changes compared to EKG from February of 2020) Discharge Plan Discharge Clinical Impression: CHF (congestive heart failure) Qualifiers: Heart failure type: unspecified Heart failure chronicity: unspecified Qualified Code(s): I50.9 - Heart failure, unspecified Patient Disposition: Left Against Medical Advice Instructions: Heart Failure (ED), Leg Edema (ED) Additional Instructions: If you have any new symptoms please return to emergency room. Please follow-up with your primary care physician tomorrow. If you have any worsening or new symptoms, please return to the emergency room or call 911 Prescriptions: New furosemide [Lasix] 20 mg tablet 10 mg PO BID Qty: 10 RF: 0 No Action amiodarone 200 mg tablet 200 mg PO BID 14 Days Qty: 28 RF: 0 albuterol 90 mcg/actuation Aerosol 90 mcg INHALATION Q4-6H PRN (Reason: Shortness Of Breath Or Wheezing) RF: 0 Eliquis 5 mg tablet 5 mg PO BID RF: 0 methadone 5 mg/5 mL solution 65 mg PO DAILY RF: 0 Referrals: Ned Villalobos MD [Physician] - 2 days
[2020-05-31 03:56] LABS: Troponin-I High Sensitivity 41.8 ng/L (<3.5-17.0)
[2020-05-31 04:20] VITALS: BP 131/61; PULSE 63; RESP 16; O2SAT 95
== END 2020-05-31 05:54 | disposition left against medical advice (07) ==
PROVIDERS: Emergency Provider Emergency Medicine
DX: I50.9 Heart failure, unspecified (principal); R60.0 Localized edema; R00.1 Bradycardia, unspecified; I48.91 Unspecified atrial fibrillation; I45.6 Pre-excitation syndrome; F11.20 Opioid dependence, uncomplicated; F17.210 Nicotine dependence, cigarettes, uncomplicated; Z79.01 Long term (current) use of anticoagulants
CPT/HCPCS: 36415; 71045; 80048; 80076; 83880; 84484; 85025; 85610; 93005; 96361; 96365; 96366; 96374; 96375; 96376; 99285; J1940

== ENCOUNTER → 2020-06-12 11:18 | Outpatient (BNVA) | payer OTHER, SELFPAY | PROVIDERS: Visit Provider Nurse Practitioner Family | DX: I48.92 Unspecified atrial flutter (principal); I48.19 Other persistent atrial fibrillation; I42.1 Obstructive hypertrophic cardiomyopathy; I45.6 Pre-excitation syndrome | CPT/HCPCS: 93005; 99212 ==

== ENCOUNTER → 2020-06-29 10:39 | Outpatient (BNVA) | payer OTHER, SELFPAY | PROVIDERS: PCP Internal Medicine; Visit Provider Nurse Practitioner Family | DX: I48.92 Unspecified atrial flutter (principal); I48.19 Other persistent atrial fibrillation; I42.1 Obstructive hypertrophic cardiomyopathy; I45.6 Pre-excitation syndrome | CPT/HCPCS: 99212 ==

== ENCOUNTER → 2020-07-16 14:15 | Outpatient (BNVA) | payer OTHER, SELFPAY | PROVIDERS: PCP Internal Medicine; Visit Provider Internal Medicine | DX: J44.9 Chronic obstructive pulmonary disease, unspecified (principal); R06.02 Shortness of breath; Z87.891 Personal history of nicotine dependence; Z79.899 Other long term (current) drug therapy | CPT/HCPCS: 99202 ==

== ENCOUNTER 2020-07-18 12:08 | Emergency (ER) | payer OTHER, SELFPAY ==
--- NOTE | 2020-07-18 | ECG_ITS ---
Test Reason : CP Blood Pressure : / mmHG Vent. Rate : 062 BPM Atrial Rate : 312 BPM P-R Int : 000 ms QRS Dur : 152 ms QT Int : 484 ms P-R-T Axes : 000 -23 139 degrees QTc Int : 491 ms Atrial fibrillation Left bundle branch block Abnormal ECG When compared with ECG of 30-MAY-2020 23:01, Atrial fibrillation has replaced Sinus rhythm Msmhn-Djytszksn-Punzh is no longer Present Referred By: Generic ED Physician Electronically Signed By:NIXON GOODWIN MD
--- NOTE | ~2020-07-18 | XR_ITS ---
EXAMINATION: XR CHEST CLINICAL INFORMATION: Shortness of breath. COMPARISON: 05/30/2020 portable chest radiograph and chest CT dated 04/21/2016 TECHNIQUE: 2 views of the chest were obtained. FINDINGS: Diffuse coarsened interstitial markings are again seen without significant change. No focal infiltrate or pleural effusions are seen. The heart and mediastinal structures are unremarkable. Multilevel sternotomy wires are intact. XR/XR chest 2V IMPRESSION: Coarsened interstitial markings bilaterally correlate with the patient's known COPD and associated chronic changes. No acute cardiopulmonary process.
[2020-07-18 12:25] VITALS: BP 100/62; PULSE 69; RESP 20; TEMP 36.6; O2SAT 96; BMI 18.3
--- NOTE | 2020-07-18 14:41 | ED_ITS ---
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 Patient tells me that she has been seen here at this hospital as well as at [facility] several times. She was admitted to [facility] for same with discharge on 07/14/2020 (had negative PE study during this admission). She was sent home on 10 mg of Lasix which she tells me she has been compliant with. No weight gain. She tells me she has continued shortness of breath with no associated cough. Intermittent chest pain since yesterday. No fevers or chills. Mild leg swelling. Related Data Home Medications Medication Instructions Recorded Confirmed apixaban 5 mg tablet 5 mg PO BID 03/18/20 06/29/20 methadone 5 mg/5 mL oral solution 65 mg PO DAILY ml 03/18/20 06/29/20 albuterol 90 mcg INHALATION Q4-6H PRN 05/30/20 06/29/20 metoprolol succinate 25 mg 25 mg PO DAILY 06/29/20 06/29/20 tablet,extended release 24 hr fluoxetine 10 mg capsule 10 mg PO DAILY 07/16/20 furosemide 20 mg tablet 10 mg PO DAILY PRN tab 07/16/20 umeclidinium 62.5 mcg/actuation 1 inh INHALATION DAILY 07/16/20 blister powder for inhalation Allergies Allergy/AdvReac Type Severity Reaction Status Date / Time No Known Allergies Allergy Verified 07/16/20 14:23 [No Known Allergies*] Review of Systems Review of Systems: Yes all other systems are reviewed and are negative Constitutional: Constitutional: Reports no additional constitutional complaints, Denies body ache(s), Denies chills, Denies fever(s), Denies headache(s) and Denies weakness Eyes: Eyes: Reports no additional eye complaints and Denies change in vision ENT: Reports system reviewed and no additional complaints, except as documented, Denies dizziness, Denies headache(s), Denies nasal congestion, Denies nasal discharge and Denies neck pain Cardiovascular: Cardiovascular: Reports no additional cardiovascular complaints, Reports chest pain, Denies leg edema and Reports dyspnea Respiratory: Respiratory: Reports no additional respiratory complaints, Denies cough and Reports dyspnea Gastrointestinal: Gastrointestinal: Reports no additional gastrointestinal complaints, Denies abdominal pain, Denies diarrhea, Denies nausea and Denies vomiting Genitourinary: Genitourinary: Reports no additional female genitourinary complaints and Denies urinary incontinence Musculoskeletal: Musculoskeletal: Reports no additional musculoskeletal complaints, Denies back pain, Denies arthralgias, Denies joint swelling, Denies neck pain, Denies numbness and Denies tingling Integumentary/Breasts: Skin/Breast: Reports system reviewed and no additional complaints, except as docu and Denies rash Neurologic: Reports system reviewed and no additional complaints, except as documented, Denies Abnormal speech present, Denies dizziness, Denies headache(s), Denies numbness, Denies tingling and Denies weakness PMF Past Medical History Attestation statement: The following information was validated with the patient. Source: old records reviewed and nursing notes reviewed Medical History COPD (chronic obstructive pulmonary disease) Ex-smoker HOCM (hypertrophic obstructive cardiomyopathy) Paroxysmal atrial fibrillation WPW (Bpldr-Banbhlboq-Qsvud syndrome) Surgical History H/O cardiac radiofrequency ablation History of heart surgery (~07/02/18) S/P ventricular septal myectomy Family History Family History Father COPD (chronic obstructive pulmonary disease) Heart disease Mother Heart disease Paternal Grandmother No problems noted. Social History Social History Alcohol intake: former Smoking Status: Former smoker Cigarettes Per Day: 6 Use of substances other than those prescribed or required for medical reasons: No Substance Use Type: Heroin Advance Directives: No Advance Directives Information Provided: No Patient : No Physical Exam Vital Signs: Vital Signs: Last Vital Signs Temp 98.1 F 07/18/20 17:04 Pulse 104 H 07/18/20 17:04 Resp 16 07/18/20 17:04 BP 128/69 07/18/20 17:04 Pulse Ox 99 07/18/20 17:04 Body Mass Index 18.3 Const: General: cooperative, healthy appearing, comfortable and no acute distr ess Orientation/consciousness: patient oriented x3 Limitations: no limitations HENMT: Head: Yes normal to inspection Ears: hearing grossly normal bilaterally General nose exam: Normal external nose present Face and sinus: Yes normal facial exam Mouth: Normal oral and palatal mucosa present Throat: Yes posterior oropharynx normal Eyes: General: appearance normal, both eyes and all related structures Pupils: Equal, round and reactive pupils present Neck: Neck: Yes normal visual inspection Chest: Chest palpation & inspection: normal inspection of the chest Resp: Other: Prolonged expiration, mild expiratory wheezing Sitting upright-leaning forward but speaking full sentences Cardio: Rate: regular rate Rhythm: regular rhythm Heart sounds: Murmur heart sound present (2/6 systolic murmur) Peripheral pulses: Peripheral pulses 2+ throughout GI: Inspection: Yes normal to inspection Palpation (GI): Soft to palpation and nontender Auscultation: normal bowel sounds Back/Spine/Pelvis: Thoracic/Lumbar Spine: thoracic and lumbar spine normal to inspection Skin: General skin exam: no rashes or lesions noted Neuro: General: patient oriented x3, no focal motor deficits and normal sensation to monofilament Cranial nerves: Yes Equal, round and reactive pupils present Cognition (Neuro): normal cognition Speech: No Abnormal speech present Gait exam (Neuro): Normal gait present Motor exam (neuro): 5/5 motor strength present throughout Extrem: General: Yes normal to inspection, Yes no calf tenderness and Yes edema (1+ bilateral edema) Course Course Course Narrative: 54 year old female here with acute on chronic shortness of breath, leg swelling and intermittent chest pain. Patient has had multiple admits for CHF, COPD both here and [facility]. Currently on 10 mg of Lasix. No waking, cough, fever or chills. On exam the patient has some prolonged expirations, mild expiratory wheezing. Speaking full sentences. Vital signs are stable. Will need chest x-ray, EKG, labs. Recommended DuoNeb patient refused. 1515-chest x-ray consistent with COPD. No signs of fluid overload. EKG shows a flutter with a rate of 62. Initial troponin 24. Will plan for repeat 3 hour troponin. Labs show a BNP of 2393. On paperwork from [facility] 07/14/2020 [place] [address] so this is actually improved. COVID screen pending prior to Duoneb which patient is now accepting. Patient on lasix 10mg daily so 20mg IV lasix ordered. Overall appears well. If repeat troponin is delta patient will need ambulatory oxygen saturation to determine disposition. 1700-sign out to Lucy [facility] pending above. MDM - SOB/Dyspnea Differential Diagnosis Differential diagnosis: Likely acute exacerbation of chronic obstructive airways disease, congestive heart failure and pneumonia Medical Records Attestation: I reviewed the patient's medical records. Lab Data Attestation: I reviewed the patient's lab results. Result diagrams: 07/18/20 15:08 07/18/20 15:08 Labs: Lab Results 07/18/20 07/18/20 07/18/20 Range/Units 15:08 15:08 15:08 WBC 7.9 (4.8-10.8) X10*3/uL RBC 5.28 (4.20-5.50) X10*6/uL Hgb 13.0 (12.0-16.0) g/dl Hct 41.8 (37-47) % MCV 79.2 L (80-98) fL MCH 24.6 L (27.0-33.0) pg MCHC 31.1 (31.0-35.0) g/dl RDW 20.2 H (11.0-16.0) % Plt Count 179 (160-400) X10*3/uL MPV Not Reportable Immature Gran % (Auto) 0.3 (0.0-0.4) % Neut % (Auto) 66.6 (45-73) % Lymph % (Auto) 23.3 (20-40) % Lassen % (Auto) 7.8 (2-11) % Eos % (Auto) 1.4 (0-4) % Baso % (Auto) 0.6 (0-2) % Lymph # (Auto) 1.8 (1.2-4.9) X10*3/uL Lassen # (Auto) 0.6 (0.1-1.2) X10*3/uL Eos # (Auto) 0.1 (0.0-0.4) X10*3/uL Baso # (Auto) 0.1 (0.0-0.2) X10*3/uL Abs Immat Gran (auto) 0.02 (0.00-0.03) X10*3/uL Absolute Neuts (auto) 5.2 (2.0-8.3) X10*3/uL Absolute Nucleated RBC 0.000 (0.0-0.012) X10*3/uL Nucleated RBC % (auto) 0.0 (0.0-0.2) /100WBC Hold Blue Top SEE NOTE Sodium 137 (135-145) mmol/L Potassium 4.0 (3.3-5.1) mmol/L Chloride 105 (96-108) mmol/L Carbon Dioxide 21 L (22-29) mmol/L Anion Gap 15 (12-20) BUN 9 D (9-16) mg/dL Creatinine 0.96 (0.5-1.4) mg/dL Estim Creat Clear Calc 47.3 Estimated GFR > 60 Random Glucose 88 (60-115) mg/dL Calcium 9.1 (8.4-10.2) mg/dL Magnesium 2.2 (1.6-2.6) mg/dL Total Bilirubin 0.8 (0.0-1.0) mg/dL Direct Bilirubin 0.3 (0.0-0.5) mg/dL AST 20 (5-31) U/L ALT 17 (0-31) U/L Alkaline Phosphatase 113 D (39-117) U/L Troponin I High Sens (<3.5-17.0) ng/L B-Natriuretic Peptide (<100) pg/mL Total Protein 6.8 (6.5-8.0) g/dL Albumin 3.8 (3.5-5.0) g/dL COVID-19 (RY) (Negative) COVID-19 Clin Com 07/18/20 07/18/20 Range/Units 15:08 16:09 WBC (4.8-10.8) X10*3/uL RBC (4.20-5.50) X10*6/uL Hgb (12.0-16.0) g/dl Hct (37-47) % MCV (80-98) fL MCH (27.0-33.0) pg MCHC (31.0-35.0) g/dl RDW (11.0-16.0) % Plt Count (160-400) X10*3/uL MPV Immature Gran % (Auto) (0.0-0.4) % Neut % (Auto) (45-73) % Lymph % (Auto) (20-40) % Lassen % (Auto) (2-11) % Eos % (Auto) (0-4) % Baso % (Auto) (0-2) % Lymph # (Auto) (1.2-4.9) X10*3/uL Lassen # (Auto) (0.1-1.2) X10*3/uL Eos # (Auto) (0.0-0.4) X10*3/uL Baso # (Auto) (0.0-0.2) X10*3/uL Abs Immat Gran (auto) (0.00-0.03) X10*3/uL Absolute Neuts (auto) (2.0-8.3) X10*3/uL Absolute Nucleated RBC (0.0-0.012) X10*3/uL Nucleated RBC % (auto) (0.0-0.2) /100WBC Hold Blue Top Sodium (135-145) mmol/L Potassium (3.3-5.1) mmol/L Chloride (96-108) mmol/L Carbon Dioxide (22-29) mmol/L Anion Gap (12-20) BUN (9-16) mg/dL Creatinine (0.5-1.4) mg/dL Estim Creat Clear Calc Estimated GFR Random Glucose (60-115) mg/dL Calcium (8.4-10.2) mg/dL Magnesium (1.6-2.6) mg/dL Total Bilirubin (0.0-1.0) mg/dL Direct Bilirubin (0.0-0.5) mg/dL AST (5-31) U/L ALT (0-31) U/L Alkaline Phosphatase (39-117) U/L Troponin I High Sens 24.0 H* (<3.5-17.0) ng/L B-Natriuretic Peptide 2393 H (<100) pg/mL Total Protein (6.5-8.0) g/dL Albumin (3.5-5.0) g/dL COVID-19 (RY) Negative (Negative) COVID-19 Clin Com See Note Imaging Data Chest x-ray: Attestation: I personally reviewed and interpreted this imaging study as follows: Radiologist's impression: EXAMINATION: XR CHEST CLINICAL INFORMATION: Shortness of breath. COMPARISON: 05/30/2020 portable chest radiograph and chest CT dated 04/21/2016 TECHNIQUE: 2 views of the chest were obtained. FINDINGS: Diffuse coarsened interstitial markings are again seen without significant change. No focal infiltrate or pleural effusions are seen. The heart and mediastinal structures are unremarkable. Multilevel sternotomy wires are intact. XR/XR chest 2V IMPRESSION: Coarsened interstitial markings bilaterally correlate with the patient's known COPD and associated chronic changes. No acute cardiopulmonary process. ECG Data Attestation: I personally reviewed and interpreted this ECG as follows: ECG interpretation date: 07/18/20 ECG interpretation time: 12:40 Interpretation: Atrial flutter with a variable flutter rate, ,rate of 62 normal QRS, normal QTC Discharge Plan Discharge Clinical Impression: COPD (chronic obstructive pulmonary disease), Congestive heart failure Prescriptions: No Action albuterol 90 mcg/actuation Aerosol 90 mcg INHALATION Q4-6H PRN (Reason: Shortness Of Breath Or Wheezing) RF: 0 Eliquis 5 mg tablet 5 mg PO BID RF: 0 methadone 5 mg/5 mL solution 65 mg PO DAILY RF: 0 metoprolol succinate 25 mg tablet extended release 24 hr 25 mg PO DAILY RF: 0 furosemide [Lasix] 20 mg tablet 10 mg PO DAILY PRN (Reason: edema) RF: 0 Incruse Ellipta 62.5 mcg/actuation blister with device 1 inh inhalation DAILY RF: 0 fluoxetine 10 mg capsule 10 mg PO DAILY RF: 0
[2020-07-18 15:17] LABS: Lymphocytes Absolute Auto 1.8 X10*3/uL (1.2-4.9); Red Cell Distribution Width 20.2 % (11.0-16.0); SCAN SMEAR FLAG 1
[2020-07-18 15:19] LABS: Basophils Absolute Auto 0.1 X10*3/uL (0.0-0.2); Basophils Percent Auto 0.6 % (0-2); Eosinophils Absolute Auto 0.1 X10*3/uL (0.0-0.4); Eosinophils Percent Auto 1.4 % (0-4); Hematocrit 41.8 % (37-47); Imm Gran Abs Auto 0.02 X10*3/uL (0.00-0.03); Imm Gran Pct Auto 0.3 % (0.0-0.4); Lymphocytes Percent Auto 23.3 % (20-40); Mean Corpuscular HGB Conc 31.1 g/dl (31.0-35.0); Mean Corpuscular Hemoglobin 24.6 pg (27.0-33.0); Mean Corpuscular Volume 79.2 fL (80-98); Monocytes Absolute Auto 0.6 X10*3/uL (0.1-1.2); Monocytes Percent Auto 7.8 % (2-11); Neutrophils Absolute Auto 5.2 X10*3/uL (2.0-8.3); Neutrophils Percent Auto 66.6 % (45-73); Platelet Count 179 X10*3/uL (160-400); Red Blood Count 5.28 X10*6/uL (4.20-5.50); White Blood Count 7.9 X10*3/uL (4.8-10.8)
[2020-07-18 15:26] LABS: MANUAL DIFF FLAG NO; PLT ABN DIST 1
[2020-07-18 15:35] VITALS: BP 123/76; PULSE 74; RESP 14; TEMP 36.7; O2SAT 94
[2020-07-18 15:46] LABS: Alanine Aminotransferase 17 U/L (0-31); Albumin Level 3.8 g/dL (3.5-5.0); Alkaline Phosphatase 113 U/L (39-117); Anion Gap 15 (12-20); Aspartate Amino Transferase 20 U/L (5-31); Bilirubin Direct 0.3 mg/dL (0.0-0.5); Bilirubin Total 0.8 mg/dL (0.0-1.0); Blood Urea Nitrogen 9 mg/dL (9-16); Calcium 9.1 mg/dL (8.4-10.2); Carbon Dioxide 21 mmol/L (22-29); Chloride 105 mmol/L (96-108); Creatinine Clr Calc Pharmacy 47.3; Estimated Glomerular Filt Rate > 60; Glucose Random 88 mg/dL (60-115); Magnesium 2.2 mg/dL (1.6-2.6); Sodium 137 mmol/L (135-145); Total Protein 6.8 g/dL (6.5-8.0)
[2020-07-18 15:56] LABS: B Type Natriuretic Peptide 2393 pg/mL (<100)
[2020-07-18 16:31] LABS: COVID-19 Test Negative (Negative)
[2020-07-18] MEDS: Albuterol/Iprat 2.5/0.5MG 3 ML AMPUL.NEB INHALE (16:41)
[2020-07-18 16:42] VITALS: PULSE 67; O2SAT 96
[2020-07-18] MEDS: Furosemide 20 MG/2 ML VIAL IVPUSH (16:49)
[2020-07-18 17:04] VITALS: BP 128/69; PULSE 104; RESP 16; TEMP 36.7; O2SAT 99
[2020-07-18 18:00] VITALS: BP 126/67; PULSE 75; RESP 20; TEMP 36.7; O2SAT 95
[2020-07-18 19:09] LABS: Troponin-I High Sensitivity 19.8 ng/L (<3.5-17.0)
== END 2020-07-18 20:08 | disposition home or self-care (01) ==
PROVIDERS: Nurse Practitioner Family; Emergency Provider Emergency Medicine; PCP Internal Medicine
DX: J44.9 Chronic obstructive pulmonary disease, unspecified (principal); I50.9 Heart failure, unspecified; I48.0 Paroxysmal atrial fibrillation; Z20.822 Contact with and (suspected) exposure to COVID-19; Z87.891 Personal history of nicotine dependence; Z79.899 Other long term (current) drug therapy
CPT/HCPCS: 36415; 71046; 80048; 80076; 83735; 83880; 84484; 85025; 87635; 93005; 94640; 96374; 99284; J1940

== ENCOUNTER 2020-07-20 13:41 | Emergency (ER) | payer OTHER, SELFPAY ==
[2020-07-20 13:56] VITALS: BP 91/56; PULSE 78; RESP 18; TEMP 36.6; O2SAT 96; BMI 18.3
== END 2020-07-20 18:54 | disposition left against medical advice (07) ==
PROVIDERS: Emergency Provider Emergency Medicine; PCP Internal Medicine
DX: R06.00 Dyspnea, unspecified (principal)
CPT/HCPCS: 99281; 99282

== ENCOUNTER 2020-07-20 21:53 | Emergency (ER) | payer OTHER, SELFPAY ==
--- NOTE | ~2020-07-20 | XR_ITS ---
EXAMINATION: XR CHEST CLINICAL INFORMATION: Shortness of breath COMPARISON: Chest x-ray 07/18/2020 TECHNIQUE: Frontal view of the chest was obtained. FINDINGS: Cardiac silhouette is normal in size. Hyperinflated lungs consistent with emphysematous changes. There is similar diffuse coarsening of the interstitial markings consistent with chronic changes. No lobar consolidation. No pleural effusion or pneumothorax. XR/XR chest 1V IMPRESSION: Emphysematous changes of the lungs without acute pulmonary pathology.
[2020-07-20 22:03] VITALS: BP 111/57; BP 121/68; PULSE 72; PULSE 75; RESP 16; TEMP 37.2; O2SAT 98; O2SAT 99; BMI 18.3
[2020-07-20 22:08] VITALS: BP 111/57; PULSE 72; RESP 14; TEMP 37.2; O2SAT 100
--- NOTE | 2020-07-20 22:09 | ED.SOB ---
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 Patient states that despite being seen a couple of days ago she began feeling increased shortness of breath since last night and multiple uses of her albuterol inhaler did not improve her symptoms. Patient specifically states that she is having difficulty taking a deep breath and describes a small cough that is nonproductive. She denies any fevers, chills, chest pain/palpitations, GI or symptoms Related Data Home Medications Medication Instructions Recorded Confirmed apixaban 5 mg tablet 5 mg PO BID 03/18/20 07/20/20 methadone 5 mg/5 mL oral solution 65 mg PO DAILY ml 03/18/20 07/20/20 albuterol 90 mcg INHALATION Q4-6H PRN 05/30/20 07/20/20 metoprolol succinate 25 mg 25 mg PO DAILY 06/29/20 07/20/20 tablet,extended release 24 hr fluoxetine 10 mg capsule 10 mg PO DAILY 07/16/20 07/20/20 furosemide 20 mg tablet 10 mg PO DAILY PRN tab 07/16/20 07/20/20 umeclidinium 62.5 mcg/actuation 1 inh INHALATION DAILY 07/16/20 07/20/20 blister powder for inhalation Allergies Allergy/AdvReac Type Severity Reaction Status Date / Time No Known Allergies Allergy Verified 07/20/20 22:10 [No Known Allergies*] Review of Systems Review of Systems: Pertinent positives and negatives as stated in HPI 10 point review of systems is otherwise negative. [facility] Past Medical History Source: nursing notes reviewed Medical History COPD (chronic obstructive pulmonary disease) Ex-smoker HOCM (hypertrophic obstructive cardiomyopathy) Paroxysmal atrial fibrillation WPW (Ilwow-Jvphalfxh-Wnhfc syndrome) Surgical History H/O cardiac radiofrequency ablation History of heart surgery (~07/02/18) S/P ventricular septal myectomy Family History Family History Father COPD (chronic obstructive pulmonary disease) Heart disease Mother Heart disease Paternal Grandmother No problems noted. Social History Social History Alcohol intake: former Smoking Status: Former smoker Cigarettes Per Day: 6 Use of substances other than those prescribed or required for medical reasons: No Substance Use Type: Heroin Advance Directives: No Patient : No Physical Exam Vital Signs: Vital Signs: Last Vital Signs Temp 97.8 F 07/20/20 23:22 Pulse 78 07/21/20 00:31 Resp 15 07/21/20 00:31 BP 104/51 L 07/21/20 00:31 Pulse Ox 95 07/21/20 00:31 Body Mass Index 18.3 VITAL SIGNS: Reviewed. GENERAL: Cachectic, chronically ill, in no acute distress. HEAD: Normocephalic/atraumatic EYES: PERRLA, EOMI EARS: Ext canals without abnormality NOSE: Nares patent bilateral OROPHARYNX: no oral lesions noted, posterior pharynx clear LUNGS: Normal breath sounds. No tachypnea, speaking in full sentences without difficulty, no adventitious sounds or accessory muscle use. SpO2<95> CARDIOVASCULAR: Regular rate and rhythm without noted murmurs, no JVD or lower extremity edema. ABDOMEN: Soft, non-tender, non-distended with bowel sounds. NEUROLOGIC: Alert and oriented x 4. Strength and sensation to light touch were grossly intact x 4. Course Course Course Narrative: This is a 54-year-old female with history and clinical presentation concerning for possible COPD or CHF exacerbation although the latter is felt to be less likely and also there is a component of pulmonary hypertension which may be contributing to patient's feelings of shortness of breath despite good oxygenation. Review of all investigations without findings consistent with COPD or CHF exacerbation, there are no changes on the EKG and high sensitivity troponin is flat when compared to prior and there are no complaints of chest pain. Patient is currently declining steroids as she feels that she became ill after receiving them previously. Administered a dose of albuterol/ipratropium and on re-evaluation patient reports resolution of her sensation of shortness of breath. Patient has remained hemodynamically stable throughout, has never complained of chest pain at any point, has continued to oxygenate well, and has continued to clinically not be short of breath. On review of imaging there is no evidence of pulmonary congestion. COVID-19 testing was not completed as patient has been negative on 2 separate occasions previously. Discussed all findings with the patient at bedside and she states feeling comfortable with the assessment that she is stable for discharge to home. She was encouraged to return at any point that she felt things changed and was encouraged to follow up with her sample puller, PCP by calling them in the morning and to keep her scheduled appointment with her justice professor on 07/31. MDM - SOB/Dyspnea Lab Data Result diagrams: 07/20/20 22:27 07/20/20 22:28 Labs: Lab Results 07/20/20 07/20/20 07/20/20 Range/Units 22:27 22:27 22:27 WBC 6.9 (4.8-10.8) X10*3/uL RBC 5.59 H (4.20-5.50) X10*6/uL Hgb 13.7 (12.0-16.0) g/dl Hct 43.0 (37-47) % MCV 76.9 L (80-98) fL MCH 24.5 L (27.0-33.0) pg MCHC 31.9 (31.0-35.0) g/dl RDW 20.2 H (11.0-16.0) % Plt Count 182 (160-400) X10*3/uL MPV TNP Immature Gran % (Auto) 0.3 (0.0-0.4) % Neut % (Auto) 66.0 (45-73) % Lymph % (Auto) 23.2 (20-40) % [place] % (Auto) 7.9 (2-11) % Eos % (Auto) 2.0 (0-4) % Baso % (Auto) 0.6 (0-2) % Lymph # (Auto) 1.6 (1.2-4.9) X10*3/uL [place] # (Auto) 0.5 (0.1-1.2) X10*3/uL Eos # (Auto) 0.1 (0.0-0.4) X10*3/uL Baso # (Auto) 0.0 (0.0-0.2) X10*3/uL Abs Immat Gran (auto) 0.02 (0.00-0.03) X10*3/uL Absolute Neuts (auto) 4.5 (2.0-8.3) X10*3/uL Absolute Nucleated RBC 0.000 (0.0-0.012) X10*3/uL Nucleated RBC % (auto) 0.0 (0.0-0.2) /100WBC PT 33.8 H D (10.8-13.0) SEC INR 2.8 H (0.9-1.1) VBG pH (7.32-7.43) VBG pCO2 mmHg VBG pO2 mmHg VBG HCO3 (22-26) mmol/L VBG O2 Saturation % VBG Base Excess mmol/L Sodium (135-145) mmol/L Potassium (3.3-5.1) mmol/L Chloride (96-108) mmol/L Carbon Dioxide (22-29) mmol/L Anion Gap (12-20) BUN (9-16) mg/dL Creatinine (0.5-1.4) mg/dL Estim Creat Clear Calc Estimated GFR Random Glucose (60-115) mg/dL Lactic Acid (0.5-2.0) mmol/L Calcium (8.4-10.2) mg/dL Magnesium (1.6-2.6) mg/dL Total Bilirubin (0.0-1.0) mg/dL AST (5-31) U/L ALT (0-31) U/L Alkaline Phosphatase (39-117) U/L Troponin I High Sens 25.4 H* (<3.5-17.0) ng/L B-Natriuretic Peptide 1194 H (<100) pg/mL Total Protein (6.5-8.0) g/dL Albumin (3.5-5.0) g/dL Ethyl Alcohol mg/dL 07/20/20 07/20/20 07/20/20 Range/Units 22:27 22:27 22:28 WBC (4.8-10.8) X10*3/uL RBC (4.20-5.50) X10*6/uL Hgb (12.0-16.0) g/dl Hct (37-47) % MCV (80-98) fL MCH (27.0-33.0) pg MCHC (31.0-35.0) g/dl RDW (11.0-16.0) % Plt Count (160-400) X10*3/uL MPV Immature Gran % (Auto) (0.0-0.4) % Neut % (Auto) (45-73) % Lymph % (Auto) (20-40) % [place] % (Auto) (2-11) % Eos % (Auto) (0-4) % Baso % (Auto) (0-2) % Lymph # (Auto) (1.2-4.9) X10*3/uL [place] # (Auto) (0.1-1.2) X10*3/uL Eos # (Auto) (0.0-0.4) X10*3/uL Baso # (Auto) (0.0-0.2) X10*3/uL Abs Immat Gran (auto) (0.00-0.03) X10*3/uL Absolute Neuts (auto) (2.0-8.3) X10*3/uL Absolute Nucleated RBC (0.0-0.012) X10*3/uL Nucleated RBC % (auto) (0.0-0.2) /100WBC PT (10.8-13.0) SEC INR (0.9-1.1) VBG pH (7.32-7.43) VBG pCO2 mmHg VBG pO2 mmHg VBG HCO3 (22-26) mmol/L VBG O2 Saturation % VBG Base Excess mmol/L Sodium 132 L (135-145) mmol/L Potassium 3.6 (3.3-5.1) mmol/L Chloride 98 (96-108) mmol/L Carbon Dioxide 23 (22-29) mmol/L Anion Gap 15 (12-20) BUN 11 (9-16) mg/dL Creatinine 0.93 (0.5-1.4) mg/dL Estim Creat Clear Calc 48.9 Estimated GFR > 60 Random Glucose 96 (60-115) mg/dL Lactic Acid (0.5-2.0) mmol/L Calcium 9.1 (8.4-10.2) mg/dL Magnesium 2.1 (1.6-2.6) mg/dL Total Bilirubin 0.9 (0.0-1.0) mg/dL AST 17 (5-31) U/L ALT 14 (0-31) U/L Alkaline Phosphatase 123 H (39-117) U/L Troponin I High Sens (<3.5-17.0) ng/L B-Natriuretic Peptide (<100) pg/mL Total Protein 6.7 (6.5-8.0) g/dL Albumin 3.7 (3.5-5.0) g/dL Ethyl Alcohol < 10 mg/dL 07/20/20 07/20/20 Range/Units 22:28 22:37 WBC (4.8-10.8) X10*3/uL RBC (4.20-5.50) X10*6/uL Hgb (12.0-16.0) g/dl Hct (37-47) % MCV (80-98) fL MCH (27.0-33.0) pg MCHC (31.0-35.0) g/dl RDW (11.0-16.0) % Plt Count (160-400) X10*3/uL MPV Immature Gran % (Auto) (0.0-0.4) % Neut % (Auto) (45-73) % Lymph % (Auto) (20-40) % [place] % (Auto) (2-11) % Eos % (Auto) (0-4) % Baso % (Auto) (0-2) % Lymph # (Auto) (1.2-4.9) X10*3/uL [place] # (Auto) (0.1-1.2) X10*3/uL Eos # (Auto) (0.0-0.4) X10*3/uL Baso # (Auto) (0.0-0.2) X10*3/uL Abs Immat Gran (auto) (0.00-0.03) X10*3/uL Absolute Neuts (auto) (2.0-8.3) X10*3/uL Absolute Nucleated RBC (0.0-0.012) X10*3/uL Nucleated RBC % (auto) (0.0-0.2) /100WBC PT (10.8-13.0) SEC INR (0.9-1.1) VBG pH 7.46 H (7.32-7.43) VBG pCO2 36 mmHg VBG pO2 123 mmHg VBG HCO3 25 (22-26) mmol/L VBG O2 Saturation 99.0 % VBG Base Excess 2.5 mmol/L Sodium (135-145) mmol/L Potassium (3.3-5.1) mmol/L Chloride (96-108) mmol/L Carbon Dioxide (22-29) mmol/L Anion Gap (12-20) BUN (9-16) mg/dL Creatinine (0.5-1.4) mg/dL Estim Creat Clear Calc Estimated GFR Random Glucose (60-115) mg/dL Lactic Acid 1.5 (0.5-2.0) mmol/L Calcium (8.4-10.2) mg/dL Magnesium (1.6-2.6) mg/dL Total Bilirubin (0.0-1.0) mg/dL AST (5-31) U/L ALT (0-31) U/L Alkaline Phosphatase (39-117) U/L Troponin I High Sens (<3.5-17.0) ng/L B-Natriuretic Peptide (<100) pg/mL Total Protein (6.5-8.0) g/dL Albumin (3.5-5.0) g/dL Ethyl Alcohol mg/dL ECG Data Attestation: I personally reviewed and interpreted this ECG as follows: Prior ECG tracings: available for review (07/18/2020 no acute changes on comparison) Interpretation: Atrial fibrillation, HR-66, LBBB, no evidence of acute ischemia, WI/QRS/QTC are abnormal Discharge Plan Discharge Clinical Impression: SOB (shortness of breath) Patient Disposition: Home, Self-Care Instructions: Shortness of Breath (ED) Additional Instructions: 1. Resume all home medications as prescribed. 2. Please follow-up with your sample puller as well as your primary care provider by calling the office in the morning to set up re-evaluation appointments. Return to the ER for any acute worsening of your symptoms. Prescriptions: No Action albuterol 90 mcg/actuation Aerosol 90 mcg INHALATION Q4-6H PRN (Reason: Shortness Of Breath Or Wheezing) RF: 0 Eliquis 5 mg tablet 5 mg PO BID RF: 0 methadone 5 mg/5 mL solution 65 mg PO DAILY RF: 0 metoprolol succinate 25 mg tablet extended release 24 hr 25 mg PO DAILY RF: 0 furosemide [Lasix] 20 mg tablet 10 mg PO DAILY PRN (Reason: edema) RF: 0 Incruse Ellipta 62.5 mcg/actuation blister with device 1 inh inhalation DAILY RF: 0 fluoxetine 10 mg capsule 10 mg PO DAILY RF: 0 Referrals: Ned Villalobos MD [Physician] - 2 days (Patient seen here 07/21 with shortness of breath, no evidence of COPD or CHF exacerbation and troponins/EKG w/o changes from prior. Improvement with 1 DuoNeb nebulizer.)
--- NOTE | 2020-07-20 22:10 | ECG_ITS ---
Test Reason : DSYPNEA Blood Pressure : / mmHG Vent. Rate : 066 BPM Atrial Rate : 077 BPM P-R Int : 000 ms QRS Dur : 152 ms QT Int : 494 ms P-R-T Axes : 000 -19 134 degrees QTc Int : 517 ms Atrial fibrillation Left bundle branch block Abnormal ECG When compared with ECG of 18-JUL-2020 12:40, No significant change was found Referred By: Char Cortés Electronically Signed By:JORY LOCO
[2020-07-20 22:36] LABS: MANUAL DIFF FLAG NO
[2020-07-20 22:43] LABS: Venous Blood Gas Refer to POC result
[2020-07-20 22:45] LABS: VBG Base Excess 2.5 mmol/L; VBG HCO3 25 mmol/L (22-26); VBG pCO2 36 mmHg; VBG pH 7.46 (7.32-7.43); VBG pO2 123 mmHg
[2020-07-20 23:01] LABS: Lactic Acid 1.5 mmol/L (0.5-2.0)
[2020-07-20 23:03] LABS: Basophils Percent Auto 0.6 % (0-2); Eosinophils Absolute Auto 0.1 X10*3/uL (0.0-0.4); Hemoglobin 13.7 g/dl (12.0-16.0); Imm Gran Abs Auto 0.02 X10*3/uL (0.00-0.03); Imm Gran Pct Auto 0.3 % (0.0-0.4); Lymphocytes Absolute Auto 1.6 X10*3/uL (1.2-4.9); Lymphocytes Percent Auto 23.2 % (20-40); Mean Corpuscular HGB Conc 31.9 g/dl (31.0-35.0); Mean Corpuscular Hemoglobin 24.5 pg (27.0-33.0); Mean Corpuscular Volume 76.9 fL (80-98); Monocytes Absolute Auto 0.5 X10*3/uL (0.1-1.2); Monocytes Percent Auto 7.9 % (2-11); Neutrophils Absolute Auto 4.5 X10*3/uL (2.0-8.3); Platelet Count 182 X10*3/uL (160-400); Red Blood Count 5.59 X10*6/uL (4.20-5.50); Red Cell Distribution Width 20.2 % (11.0-16.0); White Blood Count 6.9 X10*3/uL (4.8-10.8)
[2020-07-20 23:04] LABS: Magnesium 2.1 mg/dL (1.6-2.6)
[2020-07-20 23:06] LABS: Alanine Aminotransferase 14 U/L (0-31); Albumin Level 3.7 g/dL (3.5-5.0); Alkaline Phosphatase 123 U/L (39-117); Anion Gap 15 (12-20); Aspartate Amino Transferase 17 U/L (5-31); Bilirubin Total 0.9 mg/dL (0.0-1.0); Blood Urea Nitrogen 11 mg/dL (9-16); Calcium 9.1 mg/dL (8.4-10.2); Carbon Dioxide 23 mmol/L (22-29); Chloride 98 mmol/L (96-108); Creatinine Clr Calc Pharmacy 48.9; Estimated Glomerular Filt Rate > 60; Glucose Random 96 mg/dL (60-115); Potassium 3.6 mmol/L (3.3-5.1); Sodium 132 mmol/L (135-145); Total Protein 6.7 g/dL (6.5-8.0)
[2020-07-20 23:12] LABS: B Type Natriuretic Peptide 1194 pg/mL (<100); Troponin-I High Sensitivity 25.4 ng/L (<3.5-17.0)
[2020-07-20 23:14] LABS: INTERNATIONAL NORM RATIO 2.8 (0.9-1.1); Prothrombin Time 33.8 SEC (10.8-13.0)
[2020-07-20 23:18] LABS: Ethanol < 10 mg/dL
[2020-07-20 23:22] VITALS: BP 114/61; PULSE 70; RESP 20; TEMP 36.6; O2SAT 97
[2020-07-21] MEDS: Albuterol/Iprat 2.5/0.5MG 3 ML AMPUL.NEB INHALE (00:19)
[2020-07-21 00:20] VITALS: PULSE 70; O2SAT 98
[2020-07-21 00:31] VITALS: BP 104/51; PULSE 78; RESP 15; O2SAT 95
== END 2020-07-21 01:43 | disposition home or self-care (01) ==
PROVIDERS: Emergency Provider Student in an Organized Health Care Education/Training Program; PCP Internal Medicine
DX: R06.02 Shortness of breath (principal); J44.9 Chronic obstructive pulmonary disease, unspecified; I42.1 Obstructive hypertrophic cardiomyopathy; I48.0 Paroxysmal atrial fibrillation; I45.6 Pre-excitation syndrome; Z87.891 Personal history of nicotine dependence
CPT/HCPCS: 36415; 71045; 80053; 80320; 83605; 83735; 83880; 84484; 85025; 85610; 87040; 93005; 94640; 99284; 99285

== ENCOUNTER 2020-07-31 12:38 | Outpatient (REF) | payer OTHER, SELFPAY ==
--- NOTE | 2020-07-31 15:55 | PFT_ITS ---
FLOWS: FEV1 94% of predicted at 2.34 L. FVC 107% of predicted at 3.40 L. FEV1 to FVC ratio of 0.69. No bronchodilator response except small to medium airways. LUNG VOLUMES: Total lung capacity 110% of predicted at 5.26 L. Residual volume 101% of predicted at 1.83 L. Slow vital capacity 116% of predicted at 3.42 L. Expiratory reserve volume 97% of predicted at 0.84 L. Diffusion capacity is severely decreased. IMPRESSION: 1. Mild obstructive ventilatory defect. No bronchodilator response except small to medium airways. 2. Diffusion capacity suggests emphysema. MD DAVID Handy/MODL / [id number]
== END 2020-07-31 12:39 | disposition home or self-care (01) ==
LOC: HO.RESP 12:38
PROVIDERS: PCP Internal Medicine; Visit Provider Internal Medicine
DX: R06.02 Shortness of breath (principal); J44.9 Chronic obstructive pulmonary disease, unspecified; Z87.891 Personal history of nicotine dependence
CPT/HCPCS: 36415; 71046; 80053; 81001; 81003; 83690; 83735; 83880; 84484; 85025; 85610; 93005; 94060; 94727; 94729; 96374; 99285

== ENCOUNTER 2020-07-31 18:21 | Inpatient (IN) | payer OTHER, SELFPAY ==
--- NOTE | ~2020-07-31 | XR_ITS ---
EXAMINATION: XR CHEST CLINICAL INFORMATION: Cough COMPARISON: 07/20/2020 along with older studies dating back to 09/22/2018 TECHNIQUE: 2 views of the chest were obtained. FINDINGS: There is changes of marked emphysema with hyperinflation. Again noted is median sternotomy with mediastinal clips and heart size within upper limits of normal. Increased interstitial markings including Curly B lines suggest superimposed CHF with mild interstitial edema. No gross alveolar infiltrates are seen. No pleural effusions are detected. No consolidations or lung masses. XR/XR chest 2V IMPRESSION: COPD with question of superimposed mild pulmonary vascular congestion
[2020-07-31 19:24] VITALS: BP 112/67; PULSE 75; RESP 18; TEMP 37; O2SAT 97
[2020-07-31 20:30] VITALS: BP 101/75; PULSE 78; RESP 16; O2SAT 96
--- NOTE | 2020-07-31 21:47 | ED.ABDPAIN ---
HPI - Abdominal Pain General Chief Complaint: Dyspnea Stated Complaint: abd pain Time Seen by Provider: 07/31/20 21:47 Source: patient Mode of arrival: EMS History of Present Illness HPI narrative: This is a 54-year-old female who presents via EMS with complaints of having been evaluated in the pulmonary function lab today and afterwards began feeling subdiaphragmatic discomfort that worsen with deep inspiration and has not been associated with fevers, chills, nausea, vomiting, diarrhea. In addition, patient denies any recent sore throat, cough. Related Data Home Medications Medication Instructions Recorded Confirmed apixaban 5 mg tablet 5 mg PO BID 03/18/20 07/20/20 methadone 5 mg/5 mL oral solution 65 mg PO DAILY ml 03/18/20 07/20/20 albuterol 90 mcg INHALATION Q4-6H PRN 05/30/20 07/20/20 metoprolol succinate 25 mg 25 mg PO DAILY 06/29/20 07/20/20 tablet,extended release 24 hr fluoxetine 10 mg capsule 10 mg PO DAILY 07/16/20 07/20/20 furosemide 20 mg tablet 10 mg PO DAILY PRN tab 07/16/20 07/20/20 umeclidinium 62.5 mcg/actuation 1 inh INHALATION DAILY 07/16/20 07/20/20 blister powder for inhalation Allergies Allergy/AdvReac Type Severity Reaction Status Date / Time No Known Allergies Allergy Verified 07/20/20 22:10 [No Known Allergies*] Review of Systems Review of Systems Pertinent positives and negatives as stated in HPI 10 point review of systems is otherwise negative. Physical Exam Vital Signs: Vital Signs: Last Vital Signs Temp 98.9 F 07/31/20 22:10 Pulse 89 07/31/20 22:10 Resp 16 07/31/20 22:10 BP 121/68 07/31/20 22:10 Pulse Ox 94 07/31/20 22:10 Body Mass Index 0.0 VITAL SIGNS: Reviewed. GENERAL: Well developed, well nourished, in no acute distress. HEAD: Normocephalic/atraumatic EYES: PERRLA, EOMI OROPHARYNX: no oral lesions noted, posterior pharynx clear and non-erythematous without noted tonsillar enlargement/erythema/exudates NECK: Supple, no adenopathy LUNGS: Good inspiratory effort, mild rales in by baseline no rhonchi, mild tachypnea SpO2<96> CARDIOVASCULAR: Regular rate and rhythm without noted murmurs, no JVD but 1+ lower extremity pitting edema at the ankles. ABDOMEN: Soft, mild tenderness on palpation across the right upper quadrant/epigastric area without rebound, non-distended with bowel sounds. SKIN: Inspection of the skin reveals no rashes NEUROLOGIC: Alert and oriented x 4. Course Course Course Narrative: This is a 54-year-old female with history and clinical presentation suggestive of possible gastritis, pancreatitis, cholecystitis. Review of all investigations consistent with CHF exacerbation, given Lasix, and discussed the case with inpatient hospitalist team who is agreeable for admission. Review of troponins and EKG without acute changes as patient consistently has elevated troponins without complaints of discrete chest pain. MDM - Abdominal Pain Lab Data Result diagrams: 07/31/20 22:05 07/31/20 22:05 Labs: Lab Results 07/31/20 07/31/20 07/31/20 Range/Units 22:05 22:05 22:05 WBC 7.4 (4.8-10.8) X10*3/uL RBC 5.00 (4.20-5.50) X10*6/uL Hgb 12.3 (12.0-16.0) g/dl Hct 38.8 (37-47) % MCV 77.6 L (80-98) fL MCH 24.6 L (27.0-33.0) pg MCHC 31.7 (31.0-35.0) g/dl RDW 20.1 H (11.0-16.0) % Plt Count 116 L D (160-400) X10*3/uL MPV Not Reportable Immature Gran % (Auto) 0.3 (0.0-0.4) % Neut % (Auto) 65.6 (45-73) % Lymph % (Auto) 24.4 (20-40) % [place] % (Auto) 7.7 (2-11) % Eos % (Auto) 1.3 (0-4) % Baso % (Auto) 0.7 (0-2) % Lymph # (Auto) 1.8 (1.2-4.9) X10*3/uL [place] # (Auto) 0.6 (0.1-1.2) X10*3/uL Eos # (Auto) 0.1 (0.0-0.4) X10*3/uL Baso # (Auto) 0.1 (0.0-0.2) X10*3/uL Abs Immat Gran (auto) 0.02 (0.00-0.03) X10*3/uL Absolute Neuts (auto) 4.9 (2.0-8.3) X10*3/uL Absolute Nucleated RBC 0.000 (0.0-0.012) X10*3/uL Nucleated RBC % (auto) 0.0 (0.0-0.2) /100WBC PT (10.8-13.0) SEC INR (0.9-1.1) Sodium 136 (135-145) mmol/L Potassium 4.2 (3.3-5.1) mmol/L Chloride 104 (96-108) mmol/L Carbon Dioxide 22 (22-29) mmol/L Anion Gap 14 (12-20) BUN 12 (9-16) mg/dL Creatinine 0.83 (0.5-1.4) mg/dL Estim Creat Clear Calc 54.8 Estimated GFR > 60 Random Glucose 87 (60-115) mg/dL Calcium 9.0 (8.4-10.2) mg/dL Magnesium (1.6-2.6) mg/dL Total Bilirubin 1.1 H (0.0-1.0) mg/dL AST 19 (5-31) U/L ALT 8 (0-31) U/L Alkaline Phosphatase 126 H (39-117) U/L Troponin I High Sens 33.9 H* (<3.5-17.0) ng/L B-Natriuretic Peptide 3183 H (<100) pg/mL Total Protein 6.1 L (6.5-8.0) g/dL Albumin 3.5 (3.5-5.0) g/dL Lipase 6 L (8-78) U/L Urine Color Urine Appearance Urine pH (5.0-8.0) Ur Specific [place] (1.005-1.025) Urine Protein (NEG-TRACE) MG/DL Urine Glucose (UA) (NEG) MG/DL Urine Ketones (NEG) MG/DL Urine Blood (NEG) Urine Nitrite (NEG) Ur Leukocyte Esterase (NEG) Urine RBC (0) /HPF Urine WBC (0-4) /HPF Ur Squamous Epith Cells /LPF Urine Bacteria /LPF 07/31/20 07/31/20 07/31/20 Range/Units 22:05 22:05 22:52 WBC (4.8-10.8) X10*3/uL RBC (4.20-5.50) X10*6/uL Hgb (12.0-16.0) g/dl Hct (37-47) % MCV (80-98) fL MCH (27.0-33.0) pg MCHC (31.0-35.0) g/dl RDW (11.0-16.0) % Plt Count (160-400) X10*3/uL MPV Immature Gran % (Auto) (0.0-0.4) % Neut % (Auto) (45-73) % Lymph % (Auto) (20-40) % [place] % (Auto) (2-11) % Eos % (Auto) (0-4) % Baso % (Auto) (0-2) % Lymph # (Auto) (1.2-4.9) X10*3/uL [place] # (Auto) (0.1-1.2) X10*3/uL Eos # (Auto) (0.0-0.4) X10*3/uL Baso # (Auto) (0.0-0.2) X10*3/uL Abs Immat Gran (auto) (0.00-0.03) X10*3/uL Absolute Neuts (auto) (2.0-8.3) X10*3/uL Absolute Nucleated RBC (0.0-0.012) X10*3/uL Nucleated RBC % (auto) (0.0-0.2) /100WBC PT 30.6 H (10.8-13.0) SEC INR 2.6 H (0.9-1.1) Sodium (135-145) mmol/L Potassium (3.3-5.1) mmol/L Chloride (96-108) mmol/L Carbon Dioxide (22-29) mmol/L Anion Gap (12-20) BUN (9-16) mg/dL Creatinine (0.5-1.4) mg/dL Estim Creat Clear Calc Estimated GFR Random Glucose (60-115) mg/dL Calcium (8.4-10.2) mg/dL Magnesium 1.9 (1.6-2.6) mg/dL Total Bilirubin (0.0-1.0) mg/dL AST (5-31) U/L ALT (0-31) U/L Alkaline Phosphatase (39-117) U/L Troponin I High Sens (<3.5-17.0) ng/L B-Natriuretic Peptide (<100) pg/mL Total Protein (6.5-8.0) g/dL Albumin (3.5-5.0) g/dL Lipase (8-78) U/L Urine Color YELLOW Urine Appearance CLEAR Urine pH 6.0 (5.0-8.0) Ur Specific [place] <= 1.005 (1.005-1.025) Urine Protein NEG (NEG-TRACE) MG/DL Urine Glucose (UA) NEG (NEG) MG/DL Urine Ketones NEG (NEG) MG/DL Urine Blood TRACE (NEG) Urine Nitrite POS H (NEG) Ur Leukocyte Esterase NEG (NEG) Urine RBC 0 (0) /HPF Urine WBC 0-2 (0-4) /HPF Ur Squamous Epith Cells TRACE /LPF Urine Bacteria 2+ /LPF ECG Data Attestation: I personally reviewed and interpreted this ECG as follows: Prior ECG tracings: available for review (07/20/2020 no acute changes on comparison) Interpretation: Atrial fibrillation, HR -76, LBBB, no evidence of acute ischemia, Discharge Plan Discharge Clinical Impression: Congestive heart failure Patient Disposition: Admitted As Inpatient [facility] Past Medical History Source: nursing notes reviewed Medical History COPD (chronic obstructive pulmonary disease) Ex-smoker HOCM (hypertrophic obstructive cardiomyopathy) Paroxysmal atrial fibrillation WPW (Vtlnp-Xdkerakiy-Ezwfl syndrome) Surgical History H/O cardiac radiofrequency ablation History of heart surgery (~07/02/18) S/P ventricular septal myectomy Family History Family History Father COPD (chronic obstructive pulmonary disease) Heart disease Mother Heart disease Paternal Grandmother No problems noted. Social History Social History Alcohol intake: never Patient Tobacco Use Status: Former Tobacco user Cigarettes Per Day: 6 Smoked in Last 30 Days: Yes Use of substances other than those prescribed or required for medical reasons: No Substance Use Type: Heroin Advance Directives: No Advance Directives Information Provided: Yes Patient : No
--- NOTE | 2020-07-31 21:48 | ECG_ITS ---
Test Reason : SOB Blood Pressure : / mmHG Vent. Rate : 076 BPM Atrial Rate : 077 BPM P-R Int : 000 ms QRS Dur : 146 ms QT Int : 448 ms P-R-T Axes : 000 -20 136 degrees QTc Int : 504 ms Atrial fibrillation with premature ventricular or aberrantly conducted complexes Left bundle branch block Abnormal ECG When compared with ECG of 20-JUL-2020 22:32, No significant changes seen Referred By: Char Cortés Electronically Signed By:Osvaldo Rai
[2020-07-31 22:10] VITALS: BP 121/68; PULSE 89; RESP 16; TEMP 37.2; O2SAT 94
[2020-07-31 22:15] LABS: Eosinophils Absolute Auto 0.1 X10*3/uL (0.0-0.4); Hemoglobin 12.3 g/dl (12.0-16.0); Imm Gran Abs Auto 0.02 X10*3/uL (0.00-0.03); Imm Gran Pct Auto 0.3 % (0.0-0.4); Red Cell Distribution Width 20.1 % (11.0-16.0); SCAN SMEAR FLAG 1
[2020-07-31 22:17] LABS: Basophils Absolute Auto 0.1 X10*3/uL (0.0-0.2); Basophils Percent Auto 0.7 % (0-2); Eosinophils Percent Auto 1.3 % (0-4); Hematocrit 38.8 % (37-47); Lymphocytes Absolute Auto 1.8 X10*3/uL (1.2-4.9); Lymphocytes Percent Auto 24.4 % (20-40); Mean Corpuscular HGB Conc 31.7 g/dl (31.0-35.0); Mean Corpuscular Hemoglobin 24.6 pg (27.0-33.0); Mean Corpuscular Volume 77.6 fL (80-98); Monocytes Absolute Auto 0.6 X10*3/uL (0.1-1.2); Monocytes Percent Auto 7.7 % (2-11); Neutrophils Absolute Auto 4.9 X10*3/uL (2.0-8.3); Neutrophils Percent Auto 65.6 % (45-73); PLT ABN DIST 1; Platelet Count 116 X10*3/uL (160-400); White Blood Count 7.4 X10*3/uL (4.8-10.8)
[2020-07-31 22:18] LABS: MANUAL DIFF FLAG NO
[2020-07-31 22:22] LABS: INTERNATIONAL NORM RATIO 2.6 (0.9-1.1); Prothrombin Time 30.6 SEC (10.8-13.0)
[2020-07-31 22:51] LABS: Magnesium 1.9 mg/dL (1.6-2.6)
[2020-07-31 22:53] LABS: Alanine Aminotransferase 8 U/L (0-31); Albumin Level 3.5 g/dL (3.5-5.0); Alkaline Phosphatase 126 U/L (39-117); Anion Gap 14 (12-20); Aspartate Amino Transferase 19 U/L (5-31); Bilirubin Total 1.1 mg/dL (0.0-1.0); Blood Urea Nitrogen 12 mg/dL (9-16); Carbon Dioxide 22 mmol/L (22-29); Chloride 104 mmol/L (96-108); Creatinine Clr Calc Pharmacy 54.8; Estimated Glomerular Filt Rate > 60; Glucose Random 87 mg/dL (60-115); Lipase 6 U/L (8-78); Potassium 4.2 mmol/L (3.3-5.1); Sodium 136 mmol/L (135-145); Total Protein 6.1 g/dL (6.5-8.0)
[2020-07-31 22:59] LABS: B Type Natriuretic Peptide 3183 pg/mL (<100); Troponin-I High Sensitivity 33.9 ng/L (<3.5-17.0)
[2020-07-31 23:00] LABS: Glucose Urine UA NEG (NEG); Leukocyte Esterase Urine NEG (NEG); Nitrite Urine POS (NEG); Specific Gravity - Urine <= 1.005 (1.005-1.025); UACC Culture Trigger YES; Urine Blood TRACE (NEG); Urine Ketones NEG (NEG); Urine Protein NEG (NEG-TRACE)
[2020-07-31 23:01] LABS: Appearance Urine CLEAR; Color Urine YELLOW
[2020-07-31 23:16] LABS: Bacteria Urine 2+ /LPF; RBC Urine 0 /HPF (0); Squamous Epithelial Cell Urine TRACE /LPF; WBC Urine 0-2 /HPF (0-4)
[2020-08-01] VITALS: BP 115/63; PULSE 76; RESP 13; O2SAT 95
[2020-08-01] MEDS: Furosemide 40 MG/4 ML VIAL IVPUSH ×2 (00:15→12:06)
[2020-08-01 00:47] LABS: COVID-19 Test Negative (Negative); IDNOW Serial# 9DD0AD1C
--- NOTE | 2020-08-01 01:23 | P.HPHOSP_ITS ---
History of Present Illness Date of Service: 08/01/20 Chief Complaint: sob This is a 54-year-old female of COPD, hypertrophic obstructive cardiomyopathy, paroxysmal AFib, WPW, status post ventricular septal myectomy who presents to the hospital with complaints of shortness of breath. Patient reports that her symptoms started 2-3 hours after she had PFTs done at her aids social worker's office, she started developing pain with deep inspiration just below her ribs bilaterally. She reports that she has been having shortness of breath for couple of months but worsened today her shortness of breast usually exertional. She also noticed swelling in her legs today, orthopnea and PND. She denies any palpitations, no fever or chills, no headache or change in vision, no lightheadedness, no urinary symptoms, no abdominal pain nausea or vomiting, no diarrhea constipation. Patient uses 20 mg of Lasix daily, reports compliance, denies any recent increased salt intake. On arrival to the ED patient hemodynamically stable with no significant abnormal vitals Labs are significant for tropes of 33.9 that increased to 40, BNP of 3183, lipase of 6, otherwise unremarkable. Urinalysis significant for nitrites and small amount of WBC, as well as bacteria, Chest x-ray shows COPD with superimposed mild pulmonary vascular congestion EKG shows AFib with PVCs, left bundle branch block, inversions in lateral leads, as well as 1 aVL ( present on previous EKG) Past medical history as below and confirmed with patient Review of Systems Review of Systems: Yes all other systems are reviewed and are negative [facility] Medical History COPD (chronic obstructive pulmonary disease) Ex-smoker HOCM (hypertrophic obstructive cardiomyopathy) Paroxysmal atrial fibrillation WPW (Zhlna-Zyckwwyuj-Almlu syndrome) Family History Father COPD (chronic obstructive pulmonary disease) Heart disease Mother Heart disease Paternal Grandmother No problems noted. Surgical History H/O cardiac radiofrequency ablation History of heart surgery (~07/02/18) S/P ventricular septal myectomy Social History Household Members: Significant Other Housing: Apartment Do you presently have visiting nurse or other home services: Yes ([facility] 1x week) Alcohol intake: never Patient Tobacco Use Status: Former Tobacco user Quit Date: 07/01/20 Cigarettes Per Day: 6 Smoked in Last 30 Days: No Use of substances other than those prescribed or required for medical reasons: No Substance Use Type: Heroin Have you been hit, kicked, punched, or otherwise hurt by someone within the past year? If so, by whom?: No Do you feel safe in your current relationship?: Yes Is there a partner from a previous relationship who is making you feel unsafe now?: No Are you made to feel afraid or neglected: No Advance Directives: No Advance Directives Information Provided: Yes Do you have thoughts of harming others: None Do you have a plan to hurt others: No Plan Recently lost weight without trying: Yes How much weight loss: 2-13 pounds Eating poorly because of decreased appetite: Yes Nutrition screen score: 4 Nutrition Risks: No Nutritional Risk Patient : No : No Poor oral hygiene: No Meds Allergies Allergy/AdvReac Type Severity Reaction Status Date / Time No Known Allergies Allergy Verified 07/20/20 22:10 [No Known Allergies*] Home Medications Medication Instructions Recorded Confirmed Last Taken Type apixaban 5 mg tablet 5 mg PO BID 03/18/20 08/01/20 07/31/20 06:00 History 5 mg methadone 5 mg/5 mL oral solution 65 mg PO DAILY ml 03/18/20 08/01/20 07/31/20 06:00 History 65 mg albuterol 90 mcg INHALATION Q4-6H PRN 05/30/20 08/01/20 07/20/20 History metoprolol succinate 25 mg 25 mg PO DAILY 06/29/20 08/01/20 07/31/20 06:00 History tablet,extended release 24 hr 25 mg fluoxetine 10 mg capsule 10 mg PO DAILY 07/16/20 08/01/20 07/31/20 06:00 History 10 mg furosemide 20 mg tablet 10 mg PO DAILY PRN tab 07/16/20 08/01/20 07/31/20 06:00 History 20 mg umeclidinium 62.5 mcg/actuation 1 inh INHALATION DAILY 07/16/20 08/01/20 07/31/20 06:00 History blister powder for inhalation 1 inh Physical Exam Vital Signs and Narrative: Vital Signs: Last Vital Signs Temp 98.9 F 07/31/20 22:10 Pulse 76 08/01/20 00:00 Resp 13 08/01/20 00:00 BP 115/63 08/01/20 00:00 Pulse Ox 95 08/01/20 00:00 Body Mass Index 0.0 Const: General: cooperative and no acute distress Orientati on/consciousness: patient oriented x3 Eyes: General: appearance normal, both eyes and all related structures Chest: Other: Resp: Effort & Inspection: normal respiratory effort and able to speak in complete sentences Cardio: Rate: regular rate Rhythm: regular rhythm GI: Other: Pain on palpation of epigastric region Palpation (GI): Soft to palpation Auscultation: normal bowel sounds Skin: General skin exam: no rashes or lesions noted Neuro: General: patient oriented x3 Cognition (Neuro): normal cognition Extrem: Other: Trace lower extremity edema bilaterally General: Yes normal to inspection Results Labs CBC and Chem 7: 07/31/20 22:05 07/31/20 22:05 Labs: Laboratory Results - last 24 hr 07/31/20 07/31/20 07/31/20 22:05 22:05 22:05 MCV 77.6 L MCH 24.6 L MCHC 31.7 RDW 20.1 H Plt Count 116 L D MPV Not Reportable Immature Gran % (Auto) 0.3 Neut % (Auto) 65.6 Lymph % (Auto) 24.4 [place] % (Auto) 7.7 Eos % (Auto) 1.3 Baso % (Auto) 0.7 Lymph # (Auto) 1.8 [place] # (Auto) 0.6 Eos # (Auto) 0.1 Baso # (Auto) 0.1 Abs Immat Gran (auto) 0.02 Absolute Neuts (auto) 4.9 Absolute Nucleated RBC 0.000 Nucleated RBC % (auto) 0.0 PT INR Anion Gap 14 Estim Creat Clear Calc 54.8 Estimated GFR > 60 Random Glucose 87 Calcium 9.0 Magnesium Total Bilirubin 1.1 H AST 19 ALT 8 Alkaline Phosphatase 126 H Troponin I High Sens 33.9 H* B-Natriuretic Peptide 3183 H Total Protein 6.1 L Albumin 3.5 Lipase 6 L Urine Color Urine Appearance Urine pH Ur Specific [place] Urine Protein Urine Glucose (UA) Urine Ketones Urine Blood Urine Nitrite Ur Leukocyte Esterase Urine RBC Urine WBC Ur Squamous Epith Cells Urine Bacteria COVID-19 (RY) COVID-19 [employer] Com 07/31/20 07/31/20 07/31/20 22:05 22:05 22:52 MCV MCH MCHC RDW Plt Count MPV Immature Gran % (Auto) Neut % (Auto) Lymph % (Auto) [place] % (Auto) Eos % (Auto) Baso % (Auto) Lymph # (Auto) [place] # (Auto) Eos # (Auto) Baso # (Auto) Abs Immat Gran (auto) Absolute Neuts (auto) Absolute Nucleated RBC Nucleated RBC % (auto) PT 30.6 H INR 2.6 H Anion Gap Estim Creat Clear Calc Estimated GFR Random Glucose Calcium Magnesium 1.9 Total Bilirubin AST ALT Alkaline Phosphatase Troponin I High Sens B-Natriuretic Peptide Total Protein Albumin Lipase Urine Color YELLOW Urine Appearance CLEAR Urine pH 6.0 Ur Specific [place] <= 1.005 Urine Protein NEG Urine Glucose (UA) NEG Urine Ketones NEG Urine Blood TRACE Urine Nitrite POS H Ur Leukocyte Esterase NEG Urine RBC 0 Urine WBC 0-2 Ur Squamous Epith Cells TRACE Urine Bacteria 2+ COVID-19 (RY) COVID-19 [place] 08/01/20 08/01/20 00:23 00:28 MCV MCH MCHC RDW Plt Count MPV Immature Gran % (Auto) Neut % (Auto) Lymph % (Auto) [place] % (Auto) Eos % (Auto) Baso % (Auto) Lymph # (Auto) [place] # (Auto) Eos # (Auto) Baso # (Auto) Abs Immat Gran (auto) Absolute Neuts (auto) Absolute Nucleated RBC Nucleated RBC % (auto) PT INR Anion Gap Estim Creat Clear Calc Estimated GFR Random Glucose Calcium Magnesium Total Bilirubin AST ALT Alkaline Phosphatase Troponin I High Sens 40.0 H* B-Natriuretic Peptide Total Protein Albumin Lipase Urine Color Urine Appearance Urine pH Ur Specific [place] Urine Protein Urine Glucose (UA) Urine Ketones Urine Blood Urine Nitrite Ur Leukocyte Esterase Urine RBC Urine WBC Ur Squamous Epith Cells Urine Bacteria COVID-19 (RY) Negative COVID-19 [employer] Com See Note Imaging Radiologist's Impressions: Impressions Chest X-Ray 07/31/20 21:48 IMPRESSION: COPD with question of superimposed mild pulmonary vascular congestion Assessment and Plan (1) Congestive heart failure: Qualifiers: Heart failure chronicity: acute Status: Acute (2) Pleuritic chest pain: Status: Acute This is a 54-year-old female with past medical history of HOCM s/p ventricular septal myectomy as well as AFib presents to the hospital with complaints shortness of breath # acute CHF exacerbation - elevated BNP, orthopnea, PND, dyspnea, and chest x-ray revealing pulmonary congestion - troponin slightly elevated with no delta - denies any cardiac chest pain - EKG shows old T-wave inversions - uses 20 mg of Lasix at home - at this time will start her on 40 IV b.i.d. - echocardiogram - consult cardiology - strict I&O, daily weight, low-sodium diet # pleuritic chest pain - on exam the pain is actually localized to the epigastric region - troponin elevated but with no delta - no new EKG changes suggestive of ACS - monitor # atrial fib - continue apixaban, and metoprolol # COPD - not in exacerbation - continue home inhalers DVT prophylaxis: Apixaban
[2020-08-01 03:27] VITALS: BP 122/60; PULSE 65; RESP 18; TEMP 36.9; O2SAT 95
[2020-08-01] MEDS: cefTRIAXone sodium 1 GM in 0.9 % Sodium Chloride 50 ML IV (06:42)
[2020-08-01 07:22] VITALS: BP 103/59; PULSE 65; RESP 18; TEMP 36.7; O2SAT 95
[2020-08-01] MEDS: 0.9 % Sodium Chloride Flush 3 ML SYRINGE IVFLUSH (09:20)
--- NOTE | 2020-08-01 10:06 | MHC.CM.PN ---
CM met with Patient at bedside and addressed IMM, providing Patient with the original and placing a copy on the chart. Patient lives in an apartment with her Boyfriend/Jacob and she requires no DME. Patient receives [facility] RN visit 1x/week and the goal for dc is to return home and resume these services. CM has initiated and will follow for dc planning. Son/Cleve is HCP and PCP is Dr. Weiss.
--- NOTE | 2020-08-01 10:41 | PM.CNCAR ---
History of Present Illness History of Present Illness Date of Service: 08/01/20 Requesting physician: Dianne Steele Chief complaint: CHF Narrative: [age] year female past history significant for COPD, hypertrophic cardiomyopathy status post myomectomy, atrial fibrillation, WPW syndrome and congestive heart failure. She had AFib ablation because she had pre excited atrial fibrillation. She had recurrent AFib after that and after discussion with EP she has been on a rate control strategy. She was previously on amiodarone which was stopped. She has heart failure and previously was on 40 mg Lasix which was decreased to 20 and subsequently to 10 mg once a day. She started having shortness of breath and came to the hospital. Clinically she was in heart failure and was given IV diuretics. Since then she has felt significantly better. No chest pain or shortness of breath. She is a former smoker has stop smoking. She is on methadone and previously was using heroin and last use was approximately 1 year ago reportedly. [facility] Past Medical History Medical History COPD (chronic obstructive pulmonary disease) Ex-smoker HOCM (hypertrophic obstructive cardiomyopathy) Paroxysmal atrial fibrillation WPW (Epgxu-Mhcmxupbt-Pdvfm syndrome) Family History Family History Father COPD (chronic obstructive pulmonary disease) Heart disease Mother Heart disease Paternal Grandmother No problems noted. Surgical History Surgical History H/O cardiac radiofrequency ablation History of heart surgery (~07/02/18) S/P ventricular septal myectomy Social History Social History Household Members: Significant Other Housing: Apartment Do you presently have visiting nurse or other home services: Yes ([facility] 1x week) Alcohol intake: never Patient Tobacco Use Status: Former Tobacco user Quit Date: 07/01/20 Cigarettes Per Day: 6 Smoked in Last 30 Days: No Use of substances other than those prescribed or required for medical reasons: No Substance Use Type: Heroin Have you been hit, kicked, punched, or otherwise hurt by someone within the past year? If so, by whom?: No Do you feel safe in your current relationship?: Yes Is there a partner from a previous relationship who is making you feel unsafe now?: No Are you made to feel afraid or neglected: No Advance Directives: No Advance Directives Information Provided: Yes Do you have thoughts of harming others: None Do you have a plan to hurt others: No Plan Recently lost weight without trying: Yes How much weight loss: 2-13 pounds Eating poorly because of decreased appetite: Yes Nutrition screen score: 4 Nutrition Risks: No Nutritional Risk Patient : No : No Poor oral hygiene: No service: No Current occupational status: disabled Meds Allergies Allergy/AdvReac Type Severity Reaction Status Date / Time No Known Allergies Allergy Verified 07/20/20 22:10 [No Known Allergies*] Active Medications: Current Medications Generic Name Dose Route Start Last Admin Trade Name Freq PRN Reason Stop Dose Admin Acetaminophen 650 mg 08/01/20 01:26 Acetaminophen 325 Mg Tablet PO Q6H PRN Pain, Mild (Pain Scale 1-3) Docusate Sodium 100 mg 08/01/20 01:26 Docusate Sodium 100 Mg Capsule PO DAILY PRN Constipation Furosemide 40 mg 08/01/20 12:00 Furosemide 40 Mg/4 Ml Vial IVPUSH Q12H RAMU Protocol Ceftriaxone Sodium 1 gm/ 50 mls @ 100 mls/hr 08/01/20 07:00 08/01/20 09:19 Sodium Chloride IV Infused Q24H RAMU Infusion Ondansetron HCl 4 mg 08/01/20 01:26 Ondansetron Hcl 4 Mg/2 Ml Vial IVPUSH Q8H PRN Nausea and Vomiting Sodium Chloride 3 ml 08/01/20 08:00 08/01/20 09:20 0.9 % Sodium Chloride Flush 3 Ml Syringe IVFLUSH 3 ml QSHIFT RAMU Administration Home Medications Medication Instructions Recorded Confirmed Last Taken Type apixaban 5 mg tablet 5 mg PO BID 03/18/20 08/01/20 07/31/20 06:00 History 5 mg methadone 5 mg/5 mL oral solution 65 mg PO DAILY ml 03/18/20 08/01/20 07/31/20 06:00 History 65 mg albuterol 90 mcg INHALATION Q4-6H PRN 05/30/20 08/01/20 07/20/20 History metoprolol succinate 25 mg 25 mg PO DAILY 06/29/20 08/01/20 07/31/20 06:00 History tablet,extended release 24 hr 25 mg fluoxetine 10 mg capsule 10 mg PO DAILY 07/16/20 08/01/20 07/31/20 06:00 History 10 mg umeclidinium 62.5 mcg/actuation 1 inh INHALATION DAILY 07/16/20 08/01/20 07/31/20 06:00 History blister powder for inhalation 1 inh Physical Exam Vital Signs: Vital Signs: Last Vital Signs Temp 98.0 F 08/01/20 07:22 Pulse 65 08/01/20 07:22 Resp 18 08/01/20 07:22 BP 103/59 L 08/01/20 07:22 Pulse Ox 95 08/01/20 07:22 Body Mass Index 0.0 GENERAL APPEARANCE: in no acute distress, pleasant. NECK: no carotid bruit, no jugular venous distention. SKIN: no suspicious lesions, warm and dry. Midline sternotomy scar HEART: no murmurs, irregular rate and rhythm. LUNGS: clear to auscultation bilaterally. ABDOMEN: soft, nontender. EXTREMITIES: no edema. PERIPHERAL PULSES: equal. NEUROLOGIC: No gross deficits, AAO X 3 Results Labs and Meds Result diagrams: 07/31/20 22:05 07/31/20 22:05 Lab results: Laboratory Results - last 24 hr 07/31/20 07/31/20 07/31/20 22:05 22:05 22:05 WBC 7.4 RBC 5.00 Hgb 12.3 Hct 38.8 MCV 77.6 L MCH 24.6 L MCHC 31.7 RDW 20.1 H Plt Count 116 L D MPV Not Reportable Immature Gran % (Auto) 0.3 Neut % (Auto) 65.6 Lymph % (Auto) 24.4 [place] % (Auto) 7.7 Eos % (Auto) 1.3 Baso % (Auto) 0.7 Lymph # (Auto) 1.8 [place] # (Auto) 0.6 Eos # (Auto) 0.1 Baso # (Auto) 0.1 Abs Immat Gran (auto) 0.02 Absolute Neuts (auto) 4.9 Absolute Nucleated RBC 0.000 Nucleated RBC % (auto) 0.0 PT INR Sodium 136 Potassium 4.2 Chloride 104 Carbon Dioxide 22 Anion Gap 14 BUN 12 Creatinine 0.83 Estim Creat Clear Calc 54.8 Estimated GFR > 60 Random Glucose 87 Calcium 9.0 Magnesium Total Bilirubin 1.1 H AST 19 ALT 8 Alkaline Phosphatase 126 H Troponin I High Sens 33.9 H* B-Natriuretic Peptide 3183 H Total Protein 6.1 L Albumin 3.5 Lipase 6 L Urine Color Urine Appearance Urine pH Ur Specific [place] Urine Protein Urine Glucose (UA) Urine Ketones Urine Blood Urine Nitrite Ur Leukocyte Esterase Urine RBC Urine WBC Ur Squamous Epith Cells Urine Bacteria COVID-19 (RY) COVID-19 [employer] Com 07/31/20 07/31/20 07/31/20 22:05 22:05 22:52 WBC RBC Hgb Hct MCV MCH MCHC RDW Plt Count MPV Immature Gran % (Auto) Neut % (Auto) Lymph % (Auto) [place] % (Auto) Eos % (Auto) Baso % (Auto) Lymph # (Auto) [place] # (Auto) Eos # (Auto) Baso # (Auto) Abs Immat Gran (auto) Absolute Neuts (auto) Absolute Nucleated RBC Nucleated RBC % (auto) PT 30.6 H INR 2.6 H Sodium Potassium Chloride Carbon Dioxide Anion Gap BUN Creatinine Estim Creat Clear Calc Estimated GFR Random Glucose Calcium Magnesium 1.9 Total Bilirubin AST ALT Alkaline Phosphatase Troponin I High Sens B-Natriuretic Peptide Total Protein Albumin Lipase Urine Color YELLOW Urine Appearance CLEAR Urine pH 6.0 Ur Specific [place] <= 1.005 Urine Protein NEG Urine Glucose (UA) NEG Urine Ketones NEG Urine Blood TRACE Urine Nitrite POS H Ur Leukocyte Esterase NEG Urine RBC 0 Urine WBC 0-2 Ur Squamous Epith Cells TRACE Urine Bacteria 2+ COVID-19 (RY) COVID-19 [employer] Com 08/01/20 08/01/20 00:23 00:28 WBC RBC Hgb Hct MCV MCH MCHC RDW Plt Count MPV Immature Gran % (Auto) Neut % (Auto) Lymph % (Auto) [place] % (Auto) Eos % (Auto) Baso % (Auto) Lymph # (Auto) [place] # (Auto) Eos # (Auto) Baso # (Auto) Abs Immat Gran (auto) Absolute Neuts (auto) Absolute Nucleated RBC Nucleated RBC % (auto) PT INR Sodium Potassium Chloride Carbon Dioxide Anion Gap BUN Creatinine Estim Creat Clear Calc Estimated GFR Random Glucose Calcium Magnesium Total Bilirubin AST ALT Alkaline Phosphatase Troponin I High Sens 40.0 H* B-Natriuretic Peptide Total Protein Albumin Lipase Urine Color Urine Appearance Urine pH Ur Specific [place] Urine Protein Urine Glucose (UA) Urine Ketones Urine Blood Urine Nitrite Ur Leukocyte Esterase Urine RBC Urine WBC Ur Squamous Epith Cells Urine Bacteria COVID-19 (RY) Negative COVID-19 Clin Com See Note Imaging Radiologist's impression: Impressions Chest X-Ray 07/31/20 21:48 IMPRESSION: COPD with question of superimposed mild pulmonary vascular congestion Assessment and Plan (1) Congestive heart failure: Qualifiers: Heart failure chronicity: acute Status: Acute Pleasant 54-year-old female with complex cardiovascular issues including hypertrophic cardiomyopathy status post myomectomy, WPW syndrome and atrial fibrillation for which she had ablation and congestive heart failure. She is presenting for shortness of breath and on clinical grounds were thought to be in heart failure. She has been diuresed and has improved back to normal. She was previously on 40 mg Lasix which was decreased to 20 mg and then 10 mg p.r.n.. I think she should be on 20 mg p.o. Lasix daily. She should ambulate and if she is feeling better she can go home. Thank you for allowing me to participate in the care of your patient. Please feel free to contact me if you have any questions. Procedures Date of Service Date of Service: 08/01/20
[2020-08-01 11:16] VITALS: BP 114/67; PULSE 77; RESP 18; TEMP 36.7; O2SAT 95
--- NOTE | 2020-08-01 12:18 | P.DS_ITS ---
DS: Providers Provider Date of Service: 08/01/20 Date of admission: 08/01/20 00:11 Primary care physician: Jose Roberto Weiss MD Consults: 08/01/20 01:26 Consult to Cardiology Routine Consulting Provider: Osvaldo Rai Reason for consultation: CHF DS: Diagnosis Discharge Diagnosis (1) Congestive heart failure: Status: Acute (2) HOCM (hypertrophic obstructive cardiomyopathy): Status: Acute Problem details: Status post septal myectomy 07/02/2018 (3) Persistent atrial fibrillation: Status: Acute (4) UTI (urinary tract infection): Status: Acute DS: Medications Discharge Medications Home Medications: Home Medications Medication Instructions Recorded Confirmed apixaban 5 mg tablet 5 mg PO BID 03/18/20 08/01/20 methadone 5 mg/5 mL oral solution 65 mg PO DAILY ml 03/18/20 08/01/20 albuterol 90 mcg INHALATION Q4-6H PRN 05/30/20 08/01/20 metoprolol succinate 25 mg 25 mg PO DAILY 06/29/20 08/01/20 tablet,extended release 24 hr fluoxetine 10 mg capsule 10 mg PO DAILY 07/16/20 08/01/20 umeclidinium 62.5 mcg/actuation 1 inh INHALATION DAILY 07/16/20 08/01/20 blister powder for inhalation Previous Rx's Medication Instructions Recorded cefuroxime axetil 250 mg PO BID #8 tab 08/01/20 furosemide 20 mg PO DAILY #30 tab 08/01/20 DS: Summary Hospital Course Hospital Course: from admission history and physical by hospitalist Neville Reardon, 08/01/20: This is a 54-year-old female of COPD, hypertrophic obstructive cardiomyopathy, paroxysmal AFib, WPW, status post ventricular septal myectomy who presents to the hospital with complaints of shortness of breath. 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 She reports that she has been having shortness of breath for couple of months but worsened today her shortness of breast usually exertional. She also noticed swelling in her legs today, orthopnea and PND. She denies any palpitations, no fever or chills, no headache or change in vision, no lightheadedness, no urinary symptoms, no abdominal pain nausea or vomiting, no diarrhea constipation. Patient uses 20 mg of Lasix daily, reports compliance, denies any recent increased salt intake. On arrival to the ED patient hemodynamically stable with no significant abnormal vitals Labs are significant for tropes of 33.9 that increased to 40, BNP of 3183, lipase of 6, otherwise unremarkable. Urinalysis significant for nitrites and small amount of WBC, as well as bacteria, Chest x-ray shows COPD with superimposed mild pulmonary vascular congestion EKG shows AFib with PVCs, left bundle branch block, inversions in lateral leads, as well as 1 aVL ( present on previous EKG) Past medical history as below and confirmed with patient The patient was admitted to the [facility] [place]. Her symptoms resolved rapidly after a dose of IV furosemide. She was seen by the product safety consultant. She was discharged home on furosemide 20 mg daily (rather than 10 mg on a prn basis, as she was taking previously) with resumption of VNA services and will follow up with Cardiology as an outpatient. CHF education was done. She was treated for UTI with ceftriaxone, converted to cefuroxime upon discharge. Time spent discussing smoking cessation with patient: 3 to 10 minutes Time Spent with Patient Time attestation: Total time spent providing and/or coordinating discharge services: 35 Discharge coordination time: Greater than 30 minutes Quality: Stroke Does the patient have a stroke diagnosis?: No Physical Exam Vital Signs: Vital Signs: Last Vital Signs Temp 98.0 F 08/01/20 11:16 Pulse 77 08/01/20 11:16 Resp 18 08/01/20 11:16 BP 114/67 08/01/20 11:16 Pulse Ox 95 08/01/20 11:16 Body Mass Index 0.0 Gen: in no acute distress HEENT: sclera anicteric, moist mucus membranes Neck: supple Lungs: clear to auscultation bilaterally Heart: irregularly irregular, 2/6 systolic murmur along LSB Abd: soft, non-tender, non-distended Ext: no edema Skin: warm/well-perfused Neuro: alert and oriented x3, no focal findings Psych: appropriate affect DS: Data Data Completed and Pending Completed studies during hospitalization [Text1]: Laboratory Results WBC 7.4 X10*3/uL (4.8-10.8) 07/31/20 22:05 RBC 5.00 X10*6/uL (4.20-5.50) 07/31/20 22:05 Hgb 12.3 g/dl (12.0-16.0) 07/31/20 22:05 Hct 38.8 % (37-47) 07/31/20 22:05 MCV 77.6 fL (80-98) L 07/31/20 22:05 MCH 24.6 pg (27.0-33.0) L 07/31/20 22:05 MCHC 31.7 g/dl (31.0-35.0) 07/31/20 22:05 RDW 20.1 % (11.0-16.0) H 07/31/20 22:05 Plt Count 116 X10*3/uL (160-400) L D 07/31/20 22:05 MPV Not Reportable 07/31/20 22:05 Immature Gran % (Auto) 0.3 % (0.0-0.4) 07/31/20 22:05 Neut % (Auto) 65.6 % (45-73) 07/31/20 22:05 Lymph % (Auto) 24.4 % (20-40) 07/31/20 22:05 [place] % (Auto) 7.7 % (2-11) 07/31/20 22:05 Eos % (Auto) 1.3 % (0-4) 07/31/20 22:05 Baso % (Auto) 0.7 % (0-2) 07/31/20 22:05 Lymph # (Auto) 1.8 X10*3/uL (1.2-4.9) 07/31/20 22:05 [place] # (Auto) 0.6 X10*3/uL (0.1-1.2) 07/31/20 22:05 Eos # (Auto) 0.1 X10*3/uL (0.0-0.4) 07/31/20 22:05 Baso # (Auto) 0.1 X10*3/uL (0.0-0.2) 07/31/20 22:05 Abs Immat Gran (auto) 0.02 X10*3/uL (0.00-0.03) 07/31/20 22:05 Absolute Neuts (auto) 4.9 X10*3/uL (2.0-8.3) 07/31/20 22:05 Absolute Nucleated RBC 0.000 X10*3/uL (0.0-0.012) 07/31/20 22:05 Nucleated RBC % (auto) 0.0 /100WBC (0.0-0.2) 07/31/20 22:05 PT 30.6 SEC (10.8-13.0) H 07/31/20 22:05 INR 2.6 (0.9-1.1) H 07/31/20 22:05 Sodium 136 mmol/L (135-145) 07/31/20 22:05 Potassium 4.2 mmol/L (3.3-5.1) 07/31/20 22:05 Chloride 104 mmol/L (96-108) 07/31/20 22:05 Carbon Dioxide 22 mmol/L (22-29) 07/31/20 22:05 Anion Gap 14 (12-20) 07/31/20 22:05 BUN 12 mg/dL (9-16) 07/31/20 22:05 Creatinine 0.83 mg/dL (0.5-1.4) 07/31/20 22:05 Estim Creat Clear Calc 54.8 07/31/20 22:05 Estimated GFR > 60 07/31/20 22:05 Random Glucose 87 mg/dL (60-115) 07/31/20 22:05 Calcium 9.0 mg/dL (8.4-10.2) 07/31/20 22:05 Magnesium 1.9 mg/dL (1.6-2.6) 07/31/20 22:05 Total Bilirubin 1.1 mg/dL (0.0-1.0) H 07/31/20 22:05 AST 19 U/L (5-31) 07/31/20 22:05 ALT 8 U/L (0-31) 07/31/20 22:05 Alkaline Phosphatase 126 U/L (39-117) H 07/31/20 22:05 Troponin I High Sens 40.0 ng/L (<3.5-17.0) H* 08/01/20 00:28 B-Natriuretic Peptide 3183 pg/mL (<100) H 07/31/20 22:05 Total Protein 6.1 g/dL (6.5-8.0) L 07/31/20 22:05 Albumin 3.5 g/dL (3.5-5.0) 07/31/20 22:05 Lipase 6 U/L (8-78) L 07/31/20 22:05 Urine Color YELLOW 07/31/20 22:52 Urine Appearance CLEAR 07/31/20 22:52 Urine pH 6.0 (5.0-8.0) 07/31/20 22:52 Ur Specific [place] <= 1.005 (1.005-1.025) 07/31/20 22:52 Urine Protein NEG MG/DL (NEG-TRACE) 07/31/20 22:52 Urine Glucose (UA) NEG MG/DL (NEG) 07/31/20 22:52 Urine Ketones NEG MG/DL (NEG) 07/31/20 22:52 Urine Blood TRACE (NEG) 07/31/20 22:52 Urine Nitrite POS (NEG) H 07/31/20 22:52 Ur Leukocyte Esterase NEG (NEG) 07/31/20 22:52 Urine RBC 0 /HPF (0) 07/31/20 22:52 Urine WBC 0-2 /HPF (0-4) 07/31/20 22:52 Ur Squamous Epith Cells TRACE /LPF 07/31/20 22:52 Urine Bacteria 2+ /LPF 07/31/20 22:52 COVID-19 (RY) Negative (Negative) 08/01/20 00:23 COVID-19 Clin Com See Note 08/01/20 00:23 Impressions Chest X-Ray 07/31/20 21:48 IMPRESSION: COPD with question of superimposed mild pulmonary vascular congestion Discharge Plan Discharge Anticipated Discharge Date/Time: 08/01/20 12:10 Patient Disposition: Home Health Service Discharge Diagnosis: CHF exacerbation, UTI Referrals: Ned Villalobos MD [Physician] - 1 Week Jose Roberto Weiss MD [Physician] - 1 Week Discharge Medications: New cefuroxime axetil 250 mg tablet 250 mg PO BID Qty: 8 RF: 0 furosemide 20 mg tablet 20 mg PO DAILY Qty: 30 RF: 0 Continued albuterol 90 mcg/actuation Aerosol 90 mcg INHALATION Q4-6H PRN (Reason: Shortness Of Breath Or Wheezing) RF: 0 apixaban 5 mg tablet 5 mg PO BID RF: 0 methadone 5 mg/5 mL solution 65 mg PO DAILY RF: 0 metoprolol succinate 25 mg tablet extended release 24 hr 25 mg PO DAILY RF: 0 umeclidinium 62.5 mcg/actuation blister with device 1 inh inhalation DAILY RF: 0 fluoxetine 10 mg capsule 10 mg PO DAILY RF: 0 Discontinued furosemide [Lasix] 20 mg tablet 10 mg PO DAILY PRN (Reason: edema) RF: 0 Discharge Orders: Discharge Order (Routine); Ordered 08/01/20 Ordered By: Dianne Steele Diet: low salt diet Activity on Discharge: As tolerated Stand Alone Forms: Patient Portal Discharge page Other Ambulatory Orders: Basic Metabolic Panel (Routine) Timeframe: 1 Week Facility: [facility] - Location: Laboratory Ordered By: Dianne Steele B Type Natriuretic Peptide (Routine) Timeframe: 1 Week Facility: [facility] - Location: Laboratory Ordered By: Dianne Steele Magnesium (Routine) Timeframe: 1 Week Facility: [facility] - Location: Laboratory Ordered By: Dianne Steele Care Plan Goals: avoid CHF exacerbation treat UTI Health Concerns: CHF UTI Plan of Treatment: limit sodium to 2000 mg/d; weigh yourself daily; take furosemide 20 mg every day; check labs in 1 week [non-fasting BMP, magnesium, BNP]; follow up with senior sourcing manager in 2 weeks take cefuroxime 250 mg twice daily x 6 days follow up with your primary care doctor in 1 week Assessment: as above Patient Instructions: Heart Failure (ED)
--- NOTE | 2020-08-01 12:25 | MHC.CM.PN ---
Patient has been medically cleared for dc to home today, with vna. Patient is active with [facility], who has been notified of today's dc.
== END 2020-08-01 14:36 | disposition home health service (06) | DRG 292 ==
LOC: HO.ED 23:24 → HO.EDOVER 08-01 01:15 → HO.IMC 08-01 01:51
PROVIDERS: Admitting Provider Internal Medicine; Emergency Provider Student in an Organized Health Care Education/Training Program; Visit Provider Family Medicine
DX: I50.9 Heart failure, unspecified (principal); N39.0 Urinary tract infection, site not specified; F11.20 Opioid dependence, uncomplicated; I48.0 Paroxysmal atrial fibrillation; J44.9 Chronic obstructive pulmonary disease, unspecified; I45.6 Pre-excitation syndrome; Z20.822 Contact with and (suspected) exposure to COVID-19; Z87.891 Personal history of nicotine dependence; Z79.01 Long term (current) use of anticoagulants; Z79.899 Other long term (current) drug therapy
CPT/HCPCS: 36415; 71046; 80053; 81001; 81003; 83690; 83735; 83880; 84484; 85025; 85610; 87086; 87088; 87186; 87635; 93005; 94060; 94727; 94729; 96374; 99285; J0696; J1940

== ENCOUNTER → 2020-08-03 09:33 | Outpatient (BNVA) | payer OTHER, SELFPAY | PROVIDERS: Visit Provider Internal Medicine | CPT/HCPCS: 99211 ==

== ENCOUNTER 2020-08-06 21:07 | Observation (INO) | payer OTHER, SELFPAY ==
--- NOTE | 2020-08-06 | ECG_ITS ---
Test Reason : DYSPNEA Blood Pressure : / mmHG Vent. Rate : 053 BPM Atrial Rate : 053 BPM P-R Int : 118 ms QRS Dur : 150 ms QT Int : 542 ms P-R-T Axes : 090 -31 158 degrees QTc Int : 508 ms Sinus bradycardia Dwzse-Wzeyamaro-[id number] Abnormal ECG When compared with ECG of 31-JUL-2020 22:02, Sinus rhythm has replaced Atrial fibrillation Njmwm-Hrsqrvzwc-Tabyb is now Present Referred By: Generic ED Physician Electronically Signed By:NIXON GOODWIN MD
--- NOTE | ~2020-08-06 | XR_ITS ---
EXAMINATION: PORTABLE CHEST 1 VIEW CLINICAL INFORMATION: sob . COMPARISON: 07/31/2020. TECHNIQUE: Portable frontal view of the chest was obtained. FINDINGS: Lungs are hyperinflated with coarsened reticular markings suggesting underlying COPD. Chronic appearing reticular markings are unchanged from the prior study. No superimposed focal infiltrate, effusion, edema, or pneumothorax. Cardiac silhouette within normal limits for size. Patient is status post sternotomy. XR/XR chest 1V IMPRESSION: Hyperinflated with chronic appearing reticular markings bilaterally suggesting underlying COPD
[2020-08-06 21:19] VITALS: BP 135/62; PULSE 59; RESP 20; TEMP 36.6; O2SAT 97; BMI 18.3
[2020-08-06 22:17] VITALS: BP 111/57; PULSE 58; RESP 18; O2SAT 98
[2020-08-06 22:37] LABS: Basophils Percent Auto 0.4 % (0-2); MANUAL DIFF FLAG NO; Monocytes Absolute Auto 0.7 X10*3/uL (0.1-1.2); SCAN SMEAR FLAG 1
[2020-08-06 22:38] LABS: Eosinophils Absolute Auto 0.2 X10*3/uL (0.0-0.4); Eosinophils Percent Auto 1.9 % (0-4); Hematocrit 43.8 % (37-47); Hemoglobin 13.4 g/dl (12.0-16.0); Imm Gran Abs Auto 0.02 X10*3/uL (0.00-0.03); Imm Gran Pct Auto 0.2 % (0.0-0.4); Lymphocytes Absolute Auto 1.6 X10*3/uL (1.2-4.9); Lymphocytes Percent Auto 17.6 % (20-40); Mean Corpuscular HGB Conc 30.6 g/dl (31.0-35.0); Mean Corpuscular Hemoglobin 24.2 pg (27.0-33.0); Mean Corpuscular Volume 79.2 fL (80-98); Monocytes Percent Auto 7.8 % (2-11); Neutrophils Absolute Auto 6.6 X10*3/uL (2.0-8.3); Neutrophils Percent Auto 72.1 % (45-73); Red Blood Count 5.53 X10*6/uL (4.20-5.50); Red Cell Distribution Width 21.4 % (11.0-16.0)
[2020-08-06 22:39] LABS: PLT ABN DIST 1
[2020-08-06 22:49] VITALS: BP 129/58; PULSE 53; RESP 15; TEMP 36.8; O2SAT 98
[2020-08-06 22:59] LABS: Platelet Count 139 X10*3/uL (160-400); White Blood Count 9.1 X10*3/uL (4.8-10.8)
[2020-08-06 23:07] LABS: Anion Gap 11 (12-20); Blood Urea Nitrogen 12 mg/dL (9-16); Calcium 9.3 mg/dL (8.4-10.2); Carbon Dioxide 31 mmol/L (22-29); Chloride 99 mmol/L (96-108); Creatinine Clr Calc Pharmacy 51.7; Estimated Glomerular Filt Rate > 60; Glucose Random 67 mg/dL (60-115); Potassium 4.3 mmol/L (3.3-5.1); Sodium 137 mmol/L (135-145)
--- NOTE | 2020-08-06 23:12 | ED.SOB ---
HPI - SOB/Dyspnea General Chief Complaint: Dyspnea Stated Complaint: DIFF BREATHING Time Seen by Provider: 08/06/20 22:30 History of Present Illness HPI Narrative: Patient is a 54-year-old female with a history of COPD, history of hypertrophic cardiomyopathy. Status post myomectomy. History of atrial fibrillation. History of WPW, congestive heart failure. Patient is status post AFib ablation. Unfortunately she had recurrent AFib requiring rate control strategy only. Previously was on amiodarone. Patient was admitted to the hospital for 2 days. On August 01 to . She had congestive heart failure at that time. Patient left the hospital. Has increasing shortness of breath. Subsequently was admitted to [facility]. Patient left [facility] 15:00. At 17:00 started having chest pain again that is mid chest. Patient denies any diaphoresis. Positive shortness of breath. Patient is from home. She is a former smoker. She is on methadone. 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 Patient denies any leg swelling. Denies any coughing congestion upper respiratory symptoms. Related Data Home Medications Medication Instructions Recorded Confirmed apixaban 5 mg tablet 5 mg PO BID 03/18/20 08/06/20 methadone 5 mg/5 mL oral solution 65 mg PO DAILY ml 03/18/20 08/06/20 albuterol 90 mcg INHALATION Q4-6H PRN 05/30/20 08/06/20 metoprolol succinate 25 mg 25 mg PO DAILY 06/29/20 08/06/20 tablet,extended release 24 hr fluoxetine 10 mg capsule 10 mg PO DAILY 07/16/20 08/06/20 umeclidinium 62.5 mcg/actuation 1 inh INHALATION DAILY 07/16/20 08/06/20 blister powder for inhalation potassium chloride 10 meq PO DAILY 08/06/20 08/06/20 Previous Rx's Medication Instructions Recorded furosemide 20 mg PO DAILY #30 tab 08/01/20 Allergies Allergy/AdvReac Type Severity Reaction Status Date / Time No Known Allergies Allergy Verified 08/06/20 22:45 [No Known Allergies*] Review of Systems Review of Systems: Constitutional: No Weight loss, No Fever, No Chills, No Night Sweats, No Fatigue, No Malaise ENT/Mouth: No Hearing loss, No Ear Pain, No Nasal Congestion, No Sinus Pain, No Hoarseness, No sore throat, No Rhinorrhea, No Swallowing Difficulty Eyes: No Eye Pain, No Swelling, No Redness, No Foreign Body, No Discharge, No Vision Changes Cardiovascular: Positive Chest Pain, positive SOB, No Dyspnea on Exertion, No Orthopnea, No Edema, No Palpitations Respiratory: No Cough, No Sputum, No Wheezing, No Smoke Exposure, No Dyspnea Gastrointestinal: No Nausea, No Vomiting, No Diarrhea, No Constipation, No abdominal Pain, No Hematochezia, No Melena Genitourinary: no irregular bleeding, No Dysuria, No Urinary Frequency, No Hematuria, No Urinary Incontinence, No Urgency, No Flank Pain, No Urinary Flow Changes, No Hesitancy Musculoskeletal: No joint pain, No Myalgias, No Joint Swelling Skin: No Skin Lesions, No rash Neuro: No Weakness, No Numbness, No Paresthesias, No Loss of Consciousness, No Dizziness, No Headache Psych: No Anxiety/Panic, No Depression, No SI/HI/AH/VH, No Social Issues, Heme/Lymph: No Bruising, No Bleeding,No Lymphadenopathy Endocrine: No Polyuria, No Polydipsia, No Temperature Intolerance [facility] Past Medical History Medical History COPD (chronic obstructive pulmonary disease) Ex-smoker HOCM (hypertrophic obstructive cardiomyopathy) Paroxysmal atrial fibrillation WPW (Fvqnr-Ognubwnnn-Izlhr syndrome) Surgical History H/O cardiac radiofrequency ablation History of heart surgery (~07/02/18) S/P ventricular septal myectomy Family History Family History Father COPD (chronic obstructive pulmonary disease) Heart disease Mother Heart disease Paternal Grandmother No problems noted. Social History Social History Household Members: Significant Other Housing: Apartment Do you presently have visiting nurse or other home services: Yes ([facility] 1x week) Alcohol intake: never Patient Tobacco Use Status: Former Tobacco user Quit Date: 07/01/20 Cigarettes Per Day: 6 Use of substances other than those prescribed or required for medical reasons: No Substance Use Type: Heroin Advance Directives: No Advance Directives Information Provided: No service: No Current occupational status: disabled Physical Exam Vital Signs: Vital Signs: Last Vital Signs Temp 98.2 F 08/07/20 00:21 Pulse 53 08/07/20 01:19 Resp 17 08/07/20 01:19 BP 112/54 L 08/07/20 01:19 Pulse Ox 99 08/07/20 01:19 Body Mass Index 18.3 Appearance: Alert. Oriented X3. No acute distress. Eyes: Pupils equal, round and reactive to light. ENT: Pharynx normal. Neck: Normal inspection. Neck supple. No lymph nodes noted. No crepitus CVS: Normal heart rate and rhythm. Pulses normal. Normal S1 and S2 Respiratory: No respiratory distress. Breath sounds normal. No Wheezing. No rales Abdomen: Soft and nontender. No rigidity. No distention. good BS x4 Skin: Skin warm and dry. Normal skin color. Normal skin turgor. Extremities: No lower extremity edema. Neurovascular intact to all extremities. No Lacerations. No Rash Neuro: Oriented X 3. No motor deficit. No sensory deficit. Moving all extermities. No slurred speech MDM - SOB/Dyspnea MDM Narrative Medical decision making narrative: Significant past medical history. With a history of COPD, hypertrophic cardiomyopathy, atrial fibrillation, WPW. Recently discharged from the hospital. Presented back with chest pain. Patient's troponin 1st set was positive. Will require further monitoring and admission. Patient's case this will be discussed with the hospitalist service. In stable condition. Patient was seen by the hospitalist team. The hospitalist team discussed the case with the baby nurse on-call. [place] patient had a clean coronary in the past. [place] that patient can get a 2nd set of cardiac enzymes. If they are less than 20% elevated. There is no need for admission. Patient's 2nd troponin was 29. When compared to 16/07 earlier there is less than 20% increase. Will discharge patient home. Patient told of worsening condition to return. In stable condition. Differential Diagnosis Differential diagnosis: Likely acute exacerbation of chronic obstructive airways disease Lab Data Attestation: I reviewed the patient's lab results. Result diagrams: 08/06/20 22:22 08/06/20 22:22 Labs: Lab Results 08/06/20 08/06/20 08/06/20 Range/Units 22:22 22:22 22:22 WBC 9.1 (4.8-10.8) X10*3/uL RBC 5.53 H (4.20-5.50) X10*6/uL Hgb 13.4 (12.0-16.0) g/dl Hct 43.8 (37-47) % MCV 79.2 L (80-98) fL MCH 24.2 L (27.0-33.0) pg MCHC 30.6 L (31.0-35.0) g/dl RDW 21.4 H (11.0-16.0) % Plt Count 139 L (160-400) X10*3/uL MPV TNP Immature Gran % (Auto) 0.2 (0.0-0.4) % Neut % (Auto) 72.1 (45-73) % Lymph % (Auto) 17.6 L (20-40) % [place] % (Auto) 7.8 (2-11) % Eos % (Auto) 1.9 (0-4) % Baso % (Auto) 0.4 (0-2) % Lymph # (Auto) 1.6 (1.2-4.9) X10*3/uL [place] # (Auto) 0.7 (0.1-1.2) X10*3/uL Eos # (Auto) 0.2 (0.0-0.4) X10*3/uL Baso # (Auto) 0.0 (0.0-0.2) X10*3/uL Abs Immat Gran (auto) 0.02 (0.00-0.03) X10*3/uL Absolute Neuts (auto) 6.6 (2.0-8.3) X10*3/uL Absolute Nucleated RBC 0.000 (0.0-0.012) X10*3/uL Nucleated RBC % (auto) 0.0 (0.0-0.2) /100WBC Sodium 137 (135-145) mmol/L Potassium 4.3 (3.3-5.1) mmol/L Chloride 99 (96-108) mmol/L Carbon Dioxide 31 H (22-29) mmol/L Anion Gap 11 L (12-20) BUN 12 (9-16) mg/dL Creatinine 0.88 (0.5-1.4) mg/dL Estim Creat Clear Calc 51.7 Estimated GFR > 60 Random Glucose 67 (60-115) mg/dL Calcium 9.3 (8.4-10.2) mg/dL Troponin I High Sens 25.1 H* (<3.5-17.0) ng/L B-Natriuretic Peptide 1373 H (<100) pg/mL COVID-19 (RY) (Negative) COVID-19 Clin Com 08/07/20 Range/Units 00:24 WBC (4.8-10.8) X10*3/uL RBC (4.20-5.50) X10*6/uL Hgb (12.0-16.0) g/dl Hct (37-47) % MCV (80-98) fL MCH (27.0-33.0) pg MCHC (31.0-35.0) g/dl RDW (11.0-16.0) % Plt Count (160-400) X10*3/uL MPV Immature Gran % (Auto) (0.0-0.4) % Neut % (Auto) (45-73) % Lymph % (Auto) (20-40) % [place] % (Auto) (2-11) % Eos % (Auto) (0-4) % Baso % (Auto) (0-2) % Lymph # (Auto) (1.2-4.9) X10*3/uL [place] # (Auto) (0.1-1.2) X10*3/uL Eos # (Auto) (0.0-0.4) X10*3/uL Baso # (Auto) (0.0-0.2) X10*3/uL Abs Immat Gran (auto) (0.00-0.03) X10*3/uL Absolute Neuts (auto) (2.0-8.3) X10*3/uL Absolute Nucleated RBC (0.0-0.012) X10*3/uL Nucleated RBC % (auto) (0.0-0.2) /100WBC Sodium (135-145) mmol/L Potassium (3.3-5.1) mmol/L Chloride (96-108) mmol/L Carbon Dioxide (22-29) mmol/L Anion Gap (12-20) BUN (9-16) mg/dL Creatinine (0.5-1.4) mg/dL Estim Creat Clear Calc Estimated GFR Random Glucose (60-115) mg/dL Calcium (8.4-10.2) mg/dL Troponin I High Sens (<3.5-17.0) ng/L B-Natriuretic Peptide (<100) pg/mL COVID-19 (RY) Negative (Negative) COVID-19 Clin Com See Note ECG Data Interpretation: Patient's EKG showed a sinus pattern. With significantly shortened OK interval positive delta wave. Widened QRS. Significant ST segment depression over the lateral leads with T-wave inversions over V4 V5 V6. This appears to be old. The EKG does not seem to be changed from previous. Discharge Plan Discharge Clinical Impression: WPW (Pesix-Rxfqbaqhi-Qbfpz syndrome), COPD (chronic obstructive pulmonary disease), Chest pain Patient Disposition: Home, Self-Care Instructions: Chest Pain (ED) Prescriptions: No Action albuterol 90 mcg/actuation Aerosol 90 mcg INHALATION Q4-6H PRN (Reason: Shortness Of Breath Or Wheezing) RF: 0 potassium chloride 10 mEq tablet extended release 10 meq PO DAILY RF: 0 furosemide 20 mg tablet 20 mg PO DAILY Qty: 30 RF: 0 apixaban 5 mg tablet 5 mg PO BID RF: 0 methadone 5 mg/5 mL solution 65 mg PO DAILY RF: 0 metoprolol succinate 25 mg tablet extended release 24 hr 25 mg PO DAILY RF: 0 umeclidinium 62.5 mcg/actuation blister with device 1 inh inhalation DAILY RF: 0 fluoxetine 10 mg capsule 10 mg PO DAILY RF: 0 Referrals: Asuncion Cho [Emergency Nurse] - 2 days
[2020-08-06 23:25] LABS: B Type Natriuretic Peptide 1373 pg/mL (<100); Troponin-I High Sensitivity 25.1 ng/L (<3.5-17.0)
--- NOTE | 2020-08-06 23:25 | PC.NURSE ---
Troponin 25. 1 RN and MD notified
[2020-08-07 00:21] VITALS: BP 115/55; PULSE 14; RESP 12; TEMP 36.8; O2SAT 95
[2020-08-07] MEDS: HYDROmorphone HCl 0.5 MG/0.5 ML SYRINGE IVPUSH (00:24)
[2020-08-07 00:48] LABS: COVID-19 Test Negative (Negative); IDNOW Serial# 9DD0AD1C
[2020-08-07 01:19] VITALS: BP 112/54; PULSE 53; RESP 17; O2SAT 99
[2020-08-07 02:24] LABS: Troponin-I High Sensitivity 29.7 ng/L (<3.5-17.0)
--- NOTE | 2020-08-07 03:07 | P.HPHOSP_ITS ---
History of Present Illness Date of Service: 08/07/20 Chief Complaint: Chest pain 54-year-old female with a past medical history of HOCM, Uxbkj-Ojnmjrbth-Epijh syndrome, history of cardiac radiofrequency ablation, history of heart surgery, history of ventricular septal myomectomy, COPD, ex-smoker, paroxysmal AFib on Eliquis, CHF on Lasix, opiate dependence on methadone recent admission to the [facility] and [facility] for CHF-discharged today from [facility], went home and subsequently had an episode of chest pain at home. Reports the chest pain as pressure-like in nature nonradiating, no associated nausea vomiting diaphoresis. Lasted for about couple of hours. Subsequently came to the ER for further evaluation. Denies any chest pain at the time of my interview. Denies any fever chills cough. Denies any GI or symptoms. Review of all other systems is negative except mentioned above ER course: Per ER team patient chest pain improved, EKG abnormal but similar to the prior EKG; troponin is 26 and follow-up troponin is 29; admitted to the hospital for further evaluation Cardiology. [facility] Medical History COPD (chronic obstructive pulmonary disease) Ex-smoker HOCM (hypertrophic obstructive cardiomyopathy) Paroxysmal atrial fibrillation WPW (Vchwv-Zotpfvsqo-Deycx syndrome) Family History Father COPD (chronic obstructive pulmonary disease) Heart disease Mother Heart disease Paternal Grandmother No problems noted. Surgical History H/O cardiac radiofrequency ablation History of heart surgery (~07/02/18) S/P ventricular septal myectomy Social History Household Members: Significant Other Housing: Apartment Do you presently have visiting nurse or other home services: Yes ([facility] 1x week) Alcohol intake: never Patient Tobacco Use Status: Former Tobacco user Quit Date: 07/01/20 Cigarettes Per Day: 6 Substance Use Type: Heroin Patient : No service: No Current occupational status: disabled Meds Allergies Allergy/AdvReac Type Severity Reaction Status Date / Time No Known Allergies Allergy Verified 08/07/20 14:44 [No Known Allergies*] Active Medications: Current Medications Generic Name Dose Route Start Last Admin Trade Name Freq PRN Reason Stop Dose Admin Acetaminophen 650 mg 08/07/20 03:02 Acetaminophen 325 Mg Tablet PO Q6H PRN Pain, Mild (Pain Scale 1-3) Albuterol/Ipratropium 3 ml 08/07/20 03:04 Albuterol/Iprat 2.5/0.5mg 3 Ml Ampul.Neb INHALE RQ4H PRN Shortness of Breath/Wheezing Apixaban 5 mg 08/07/20 09:00 Apixaban 5 Mg Tablet PO BID [facility]LY [facility], [facility]1983 Fluoxetine HCl 10 mg 08/07/20 09:00 Fluoxetine Hcl 10 Mg Capsule PO DAILY FOR[facility], [facility] Furosemide 20 mg 08/07/20 09:00 Furosemide 20 Mg Tablet PO DAILY FOR[facility]LY [facility], [facility] Protocol Metoprolol Succinate 25 mg 08/07/20 09:00 Metoprolol Succinate Er 25 Mg Tab.Er.24h PO DAILY FOR[facility]LY [facility], [facility] Protocol Nitroglycerin 0.4 mg 08/07/20 03:02 Nitroglycerin 0.4 Mg Tab.Subl SUBLINGUAL Q5M PRN Chest Pain Potassium Chloride 10 meq 08/07/20 09:00 Potassium Chloride Er 10 Meq Capsule.Er PO DAILY FOR[facility]LY [facility], [facility] Sodium Chloride 3 ml 08/07/20 08:00 0.9 % Sodium Chloride Flush 3 Ml Syringe IVFLUSH QSHIFT FOR[facility] Home Medications Medication Instructions Recorded Confirmed Last Taken Type apixaban 5 mg tablet 5 mg PO BID 03/18/20 08/07/20 07/31/20 06:00 History 5 mg methadone 5 mg/5 mL oral solution 65 mg PO DAILY ml 03/18/20 08/07/20 08/06/20 History albuterol 90 mcg INHALATION Q4-6H PRN 05/30/20 08/07/20 07/20/20 History metoprolol succinate 25 mg 25 mg PO DAILY 06/29/20 08/07/20 08/06/20 History tablet,extended release 24 hr fluoxetine 10 mg capsule 10 mg PO DAILY 07/16/20 08/07/20 08/06/20 History umeclidinium 62.5 mcg/actuation 1 inh INHALATION DAILY 07/16/20 08/07/20 07/31/20 06:00 History blister powder for inhalation 1 inh potassium chloride 10 meq PO DAILY 08/06/20 08/07/20 Unknown History Physical Exam Vital Signs and Narrative: Vital Signs: Last Vital Signs Temp 98.2 F 08/07/20 00:21 Pulse 53 08/07/20 01:19 Resp 17 08/07/20 01:19 BP 112/54 L 08/07/20 01:19 Pulse Ox 99 08/07/20 01:19 Body Mass Index 18.3 Gen: Appears be in no acute distress HEENT: NCAT, Moist mucosa. Pulmonary: Vesicular breath sounds, fair air entry CVS: Normal S1-S2 Abdomen: BS+, Soft, Nontender Extremities: Warm well perfused Neuro: Alert and awake. Results Labs CBC and Chem 7: 08/07/20 06:23 08/07/20 06:23 Labs: Laboratory Results - last 24 hr 08/06/20 08/06/20 08/06/20 22:22 22:22 22:22 MCV 79.2 L MCH 24.2 L MCHC 30.6 L RDW 21.4 H Plt Count 139 L MPV TNP Immature Gran % (Auto) 0.2 Neut % (Auto) 72.1 Lymph % (Auto) 17.6 L Canadian % (Auto) 7.8 Eos % (Auto) 1.9 Baso % (Auto) 0.4 Lymph # (Auto) 1.6 [place] # (Auto) 0.7 Eos # (Auto) 0.2 Baso # (Auto) 0.0 Abs Immat Gran (auto) 0.02 Absolute Neuts (auto) 6.6 Absolute Nucleated RBC 0.000 Nucleated RBC % (auto) 0.0 Anion Gap 11 L Estim Creat Clear Calc 51.7 Estimated GFR > 60 Random Glucose 67 Calcium 9.3 Troponin I High Sens 25.1 H* B-Natriuretic Peptide 1373 H COVID-19 (RY) COVID-19 Clin Com 08/07/20 08/07/20 00:24 01:25 MCV MCH MCHC RDW Plt Count MPV Immature Gran % (Auto) Neut % (Auto) Lymph % (Auto) Canadian % (Auto) Eos % (Auto) Baso % (Auto) Lymph # (Auto) [place] # (Auto) Eos # (Auto) Baso # (Auto) Abs Immat Gran (auto) Absolute Neuts (auto) Absolute Nucleated RBC Nucleated RBC % (auto) Anion Gap Estim Creat Clear Calc Estimated GFR Random Glucose Calcium Troponin I High Sens 29.7 H* B-Natriuretic Peptide COVID-19 (RY) Negative COVID-19 Clin Com See Note Imaging Radiologist's Impressions: Impressions Chest X-Ray 08/06/20 23:26 IMPRESSION: Hyperinflated with chronic appearing reticular markings bilaterally suggesting underlying COPD Assessment and Plan (1) Chest pain: Status: Acute 54-year-old female with a past medical history of HOCM, history of ventricular septal myomectomy, history of WPW syndrome, history of cardiac radiofrequency ablation, heart surgery, paroxysmal AFib on Eliquis, CHF on Lasix, opiate dependence on methadone presented to the hospital with a chief complaint of chest pain. Chest pain: Currently improved. Troponins are indeterminate. EKG unchanged from prior. Spoke to Dr. esparza in regards. No further intervention currently. History of CHF: Currently stable. Continue home Lasix. History of COPD: Jona p.r.n. History of paroxysmal AFib: Rate controlled. Continue home Eliquis. History of opiate dependence: Patient on methadone program. Will defer to the addiction Medicine for confirmation/continuation off methadone. DVT prophylaxis: Patient on Eliquis Code status: Full code
[2020-08-07 03:48] VITALS: BP 115/55; PULSE 54; RESP 14; O2SAT 94
[2020-08-07 07:14] LABS: Basophils Percent Auto 0.4 % (0-2); Eosinophils Absolute Auto 0.2 X10*3/uL (0.0-0.4); Eosinophils Percent Auto 2.7 % (0-4); Hematocrit 40.5 % (37-47); Hemoglobin 12.6 g/dl (12.0-16.0); Imm Gran Abs Auto 0.02 X10*3/uL (0.00-0.03); Imm Gran Pct Auto 0.3 % (0.0-0.4); Lymphocytes Absolute Auto 1.8 X10*3/uL (1.2-4.9); Lymphocytes Percent Auto 24.1 % (20-40); MANUAL DIFF FLAG SCAN; Mean Corpuscular HGB Conc 31.1 g/dl (31.0-35.0); Mean Corpuscular Hemoglobin 24.9 pg (27.0-33.0); Mean Corpuscular Volume 79.9 fL (80-98); Monocytes Absolute Auto 0.7 X10*3/uL (0.1-1.2); Monocytes Percent Auto 9.9 % (2-11); Neutrophils Absolute Auto 4.7 X10*3/uL (2.0-8.3); Neutrophils Percent Auto 62.6 % (45-73); PLT CLUMP 1; Red Blood Count 5.07 X10*6/uL (4.20-5.50); Red Cell Distribution Width 21.2 % (11.0-16.0); SCAN SMEAR FLAG 1
[2020-08-07 07:25] LABS: Anion Gap 14 (12-20); Blood Urea Nitrogen 11 mg/dL (9-16); Calcium 8.7 mg/dL (8.4-10.2); Carbon Dioxide 24 mmol/L (22-29); Chloride 102 mmol/L (96-108); Creatinine Clr Calc Pharmacy 60.6; Estimated Glomerular Filt Rate > 60; Glucose Random 89 mg/dL (60-115); Magnesium 2.1 mg/dL (1.6-2.6); Potassium 4.1 mmol/L (3.3-5.1); Sodium 136 mmol/L (135-145)
[2020-08-07 07:36] VITALS: BP 110/60; PULSE 54; RESP 16; O2SAT 98
[2020-08-07 07:37] LABS: White Blood Count 7.5 X10*3/uL (4.8-10.8)
[2020-08-07 07:38] LABS: Platelet Count 109 X10*3/uL (160-400); SLIDE REVIEW VERIFIED
--- NOTE | 2020-08-07 07:45 | P.DS_ITS ---
DS: Providers Provider Date of Service: 08/07/20 Date of admission: 08/07/20 03:02 Primary care physician: Jose Roberto Weiss MD Consults: 08/07/20 03:02 Consult to Cardiology Routine Consulting Provider: Ned Villalobos Reason for consultation: chest pain 08/07/20 03:11 Addiction Medicine Routine Consulting Provider: Amanda Albright Reason for consultation: pt on methadone DS: Diagnosis Discharge Diagnosis (1) Chest pain: Status: Acute DS: Medications Discharge Medications Home Medications: Home Medications Medication Instructions Recorded Confirmed apixaban 5 mg tablet 5 mg PO BID 03/18/20 08/06/20 methadone 5 mg/5 mL oral solution 65 mg PO DAILY ml 03/18/20 08/06/20 albuterol 90 mcg INHALATION Q4-6H PRN 05/30/20 08/06/20 metoprolol succinate 25 mg 25 mg PO DAILY 06/29/20 08/06/20 tablet,extended release 24 hr fluoxetine 10 mg capsule 10 mg PO DAILY 07/16/20 08/06/20 umeclidinium 62.5 mcg/actuation 1 inh INHALATION DAILY 07/16/20 08/06/20 blister powder for inhalation potassium chloride 10 meq PO DAILY 08/06/20 08/06/20 Previous Rx's Medication Instructions Recorded furosemide 20 mg PO DAILY #30 tab 08/01/20 DS: Summary Hospital Course Hospital Course: Patient was observed for chest pain, her troponins were flat, her chest pain resolved. Case was discussed with her auger operator recommended outpatient follow-up. Time Spent with Patient Time attestation: Total time spent providing and/or coordinating discharge services: Discharge coordination time: Greater than 30 minutes Quality: Stroke Does the patient have a stroke diagnosis?: No Physical Exam Vital Signs: Vital Signs: Last Vital Signs Temp 98.2 F 08/07/20 00:21 Pulse 54 08/07/20 07:36 Resp 16 08/07/20 07:36 BP 110/60 08/07/20 07:36 Pulse Ox 98 08/07/20 07:36 Body Mass Index 18.3 General: AO X 3, no acute distress Resp: CTA bilateral CVS: S1,S2,RRR GI: soft, non tender, non distended Neuro: motor grossly intact Psych: appropriate affect DS: Data Data Completed and Pending Labs on day of discharge: Laboratory Results - last 24 hr 08/06/20 08/06/20 08/06/20 22:22 22:22 22:22 WBC 9.1 RBC 5.53 H Hgb 13.4 Hct 43.8 MCV 79.2 L MCH 24.2 L MCHC 30.6 L RDW 21.4 H Plt Count 139 L MPV TNP Immature Gran % (Auto) 0.2 Neut % (Auto) 72.1 Lymph % (Auto) 17.6 L Antelope % (Auto) 7.8 Eos % (Auto) 1.9 Baso % (Auto) 0.4 Lymph # (Auto) 1.6 Antelope # (Auto) 0.7 Eos # (Auto) 0.2 Baso # (Auto) 0.0 Abs Immat Gran (auto) 0.02 Absolute Neuts (auto) 6.6 Absolute Nucleated RBC 0.000 Nucleated RBC % (auto) 0.0 Smear Tech's Comments Sodium 137 Potassium 4.3 Chloride 99 Carbon Dioxide 31 H Anion Gap 11 L BUN 12 Creatinine 0.88 Estim Creat Clear Calc 51.7 Estimated GFR > 60 Random Glucose 67 Calcium 9.3 Magnesium Troponin I High Sens 25.1 H* B-Natriuretic Peptide 1373 H COVID-19 (RY) COVID-19 [facility] 08/07/20 08/07/20 08/07/20 00:24 01:25 06:23 WBC 7.5 RBC 5.07 Hgb 12.6 Hct 40.5 MCV 79.9 L MCH 24.9 L MCHC 31.1 RDW 21.2 H Plt Count 109 L MPV Not Reportable Immature Gran % (Auto) 0.3 Neut % (Auto) 62.6 Lymph % (Auto) 24.1 Antelope % (Auto) 9.9 Eos % (Auto) 2.7 Baso % (Auto) 0.4 Lymph # (Auto) 1.8 Antelope # (Auto) 0.7 Eos # (Auto) 0.2 Baso # (Auto) 0.0 Abs Immat Gran (auto) 0.02 Absolute Neuts (auto) 4.7 Absolute Nucleated RBC 0.000 Nucleated RBC % (auto) 0.0 Smear Tech's Comments VERIFIED Sodium Potassium Chloride Carbon Dioxide Anion Gap BUN Creatinine Estim Creat Clear Calc Estimated GFR Random Glucose Calcium Magnesium Troponin I High Sens 29.7 H* B-Natriuretic Peptide COVID-19 (RY) Negative COVID-19 [facility] Com See Note 08/07/20 08/07/20 06:23 06:23 WBC RBC Hgb Hct MCV MCH MCHC RDW Plt Count MPV Immature Gran % (Auto) Neut % (Auto) Lymph % (Auto) Antelope % (Auto) Eos % (Auto) Baso % (Auto) Lymph # (Auto) Antelope # (Auto) Eos # (Auto) Baso # (Auto) Abs Immat Gran (auto) Absolute Neuts (auto) Absolute Nucleated RBC Nucleated RBC % (auto) Smear Tech's Comments Sodium 136 Potassium 4.1 Chloride 102 Carbon Dioxide 24 Anion Gap 14 BUN 11 Creatinine 0.75 Estim Creat Clear Calc 60.6 Estimated GFR > 60 Random Glucose 89 Calcium 8.7 D Magnesium 2.1 Troponin I High Sens B-Natriuretic Peptide COVID-19 (RY) COVID-19 Clin Com Discharge Plan Discharge Patient Disposition: Home, Self-Care Discharge Diagnosis: chest pain Referrals: Asuncion Cho [Emergency Nurse] - 2 days Jose Roberto Weiss MD [Primary Care Provider] - 1 Week Discharge Medications: Continued albuterol 90 mcg/actuation Aerosol 90 mcg INHALATION Q4-6H PRN (Reason: Shortness Of Breath Or Wheezing) RF: 0 potassium chloride 10 mEq tablet extended release 10 meq PO DAILY RF: 0 furosemide 20 mg tablet 20 mg PO DAILY Qty: 30 RF: 0 apixaban 5 mg tablet 5 mg PO BID RF: 0 methadone 5 mg/5 mL solution 65 mg PO DAILY RF: 0 metoprolol succinate 25 mg tablet extended release 24 hr 25 mg PO DAILY RF: 0 umeclidinium 62.5 mcg/actuation blister with device 1 inh inhalation DAILY RF: 0 fluoxetine 10 mg capsule 10 mg PO DAILY RF: 0 Discharge Orders: Discharge Order (Routine); Ordered 08/07/20 Ordered By: James Simon Diet: advance to usual diet Activity on Discharge: As tolerated Stand Alone Forms: Patient Portal Discharge page Care Plan Goals: manage cardiac comorbidities Health Concerns: bolivar figueroa Plan of Treatment: follow up with cardio Assessment: see above Patient Instructions: Chest Pain (ED)
== END 2020-08-07 08:05 | disposition home or self-care (01) ==
LOC: HO.ED 08-07 02:25 → HO.EDOVER 08-07 03:29
PROVIDERS: Admitting Provider Hospitalist; Emergency Provider Emergency Medicine Emergency Medical Services; PCP Internal Medicine; Visit Provider Internal Medicine
DX: R07.9 Chest pain, unspecified (principal); R06.02 Shortness of breath; R00.1 Bradycardia, unspecified; I45.6 Pre-excitation syndrome; I42.1 Obstructive hypertrophic cardiomyopathy; I48.0 Paroxysmal atrial fibrillation; R94.31 Abnormal electrocardiogram [ECG] [EKG]; F11.19 Opioid abuse with unspecified opioid-induced disorder; Z87.891 Personal history of nicotine dependence; Z20.822 Contact with and (suspected) exposure to COVID-19; Z98.890 Other specified postprocedural states; Z79.891 Long term (current) use of opiate analgesic; Z79.899 Other long term (current) drug therapy
CPT/HCPCS: 36415; 71045; 80048; 83735; 83880; 84484; 85025; 87635; 93005; 96372; 96374; 99219; 99285; J1170

== ENCOUNTER 2020-08-09 17:48 | Emergency (ER) | payer OTHER, SELFPAY ==
--- NOTE | 2020-08-09 | ECG_ITS ---
Test Reason : CHEST PAIN Blood Pressure : / mmHG Vent. Rate : 049 BPM Atrial Rate : 049 BPM P-R Int : 120 ms QRS Dur : 154 ms QT Int : 574 ms P-R-T Axes : 094 -25 172 degrees QTc Int : 518 ms Sinus bradycardia Gnqod-Vkedfgxqi-Tuylt Abnormal ECG When compared with ECG of 06-AUG-2020 22:27, No significant change was found Referred By: Generic ED Physician Electronically Signed By:JORY LOCO
[2020-08-09 18:24] VITALS: BP 112/55; PULSE 50; RESP 18; TEMP 36.6; O2SAT 96; BMI 18.3
[2020-08-09 19:45] LABS: Hemoglobin 12.9 g/dl (12.0-16.0); Imm Gran Abs Auto 0.03 X10*3/uL (0.00-0.03); Imm Gran Pct Auto 0.3 % (0.0-0.4); SCAN SMEAR FLAG 1; WBC ABN SCTR 1
[2020-08-09 19:47] LABS: Basophils Absolute Auto 0.1 X10*3/uL (0.0-0.2); Basophils Percent Auto 0.6 % (0-2); Eosinophils Absolute Auto 0.2 X10*3/uL (0.0-0.4); Eosinophils Percent Auto 2.7 % (0-4); Hematocrit 41.4 % (37-47); Lymphocytes Absolute Auto 1.6 X10*3/uL (1.2-4.9); Lymphocytes Percent Auto 18.5 % (20-40); Mean Corpuscular HGB Conc 31.2 g/dl (31.0-35.0); Mean Corpuscular Hemoglobin 25.1 pg (27.0-33.0); Mean Corpuscular Volume 80.5 fL (80-98); Monocytes Absolute Auto 0.8 X10*3/uL (0.1-1.2); Monocytes Percent Auto 9.4 % (2-11); Neutrophils Percent Auto 68.5 % (45-73); Platelet Count 152 X10*3/uL (160-400); Red Blood Count 5.14 X10*6/uL (4.20-5.50); Red Cell Distribution Width 21.2 % (11.0-16.0)
[2020-08-09 19:51] LABS: PLT ABN DIST 1; WBC ABN SCTR FOR CBC 1
[2020-08-09 19:52] LABS: MANUAL DIFF FLAG NO; White Blood Count 8.8 X10*3/uL (4.8-10.8)
[2020-08-09 20:06] LABS: Alanine Aminotransferase 9 U/L (0-31); Albumin Level 3.8 g/dL (3.5-5.0); Alkaline Phosphatase 127 U/L (39-117); Anion Gap 10 (12-20); Aspartate Amino Transferase 17 U/L (5-31); Bilirubin Total 0.5 mg/dL (0.0-1.0); Blood Urea Nitrogen 11 mg/dL (9-16); Calcium 9.4 mg/dL (8.4-10.2); Carbon Dioxide 30 mmol/L (22-29); Chloride 104 mmol/L (96-108); Creatinine Clr Calc Pharmacy 56.2; Estimated Glomerular Filt Rate > 60; Glucose Random 76 mg/dL (60-115); Potassium 4.2 mmol/L (3.3-5.1); Sodium 140 mmol/L (135-145)
[2020-08-09 20:27] LABS: Troponin-I High Sensitivity 27.2 ng/L (<3.5-17.0)
== END 2020-08-09 22:31 | disposition left against medical advice (07) ==
PROVIDERS: Emergency Provider Emergency Medicine; PCP Internal Medicine
DX: R06.02 Shortness of breath (principal); R07.9 Chest pain, unspecified
CPT/HCPCS: 36415; 80053; 84484; 85025; 93005; 99283

== ENCOUNTER 2020-08-13 13:16 | Outpatient (REF) | payer OTHER, SELFPAY ==
[2020-08-13 14:43] LABS: Anion Gap 12 (12-20); Blood Urea Nitrogen 12 mg/dL (9-16); Calcium 9.4 mg/dL (8.4-10.2); Carbon Dioxide 29 mmol/L (22-29); Chloride 103 mmol/L (96-108); Estimated Glomerular Filt Rate > 60; Glucose Random 101 mg/dL (60-115); Potassium 4.7 mmol/L (3.3-5.1); Sodium 139 mmol/L (135-145)
== END 2020-08-13 13:17 | disposition home or self-care (01) ==
LOC: HO.LAB 13:16
PROVIDERS: PCP Internal Medicine; Visit Provider Internal Medicine Cardiovascular Disease
DX: I42.1 Obstructive hypertrophic cardiomyopathy (principal)
CPT/HCPCS: 36415; 80048; 83735

== ENCOUNTER 2020-08-13 17:18 | Emergency (ER) | payer OTHER, SELFPAY ==
--- NOTE | 2020-08-13 | ECG_ITS ---
Test Reason : BRADYCARDIA Blood Pressure : / mmHG Vent. Rate : 047 BPM Atrial Rate : 047 BPM P-R Int : 110 ms QRS Dur : 158 ms QT Int : 586 ms P-R-T Axes : 079 -29 165 degrees QTc Int : 518 ms Sinus bradycardia Ddsgt-Eevqbqspg-Telhd Abnormal ECG When compared with ECG of 09-AUG-2020 18:33, No significant change was found Referred By: Generic ED Physician Electronically Signed By:JORY LOCO
[2020-08-13 18:07] VITALS: BP 120/59; PULSE 50; RESP 18; TEMP 36.6; O2SAT 96; BMI 18.3
== END 2020-08-13 19:40 | disposition left against medical advice (07) ==
PROVIDERS: Emergency Provider Emergency Medicine; PCP Internal Medicine
DX: R00.1 Bradycardia, unspecified (principal)
CPT/HCPCS: 93005; 99283

== ENCOUNTER 2020-08-14 13:09 | Emergency (ER) | payer OTHER, SELFPAY ==
--- NOTE | 2020-08-14 | ECG_ITS ---
Test Reason : CP Blood Pressure : / mmHG Vent. Rate : 045 BPM Atrial Rate : 045 BPM P-R Int : 116 ms QRS Dur : 146 ms QT Int : 580 ms P-R-T Axes : 078 -26 177 degrees QTc Int : 501 ms Sinus bradycardia Rvccd-Rmtkmcwhl-Sbros Abnormal ECG When compared with ECG of 13-AUG-2020 18:16, No significant change was found Referred By: Generic ED Physician Electronically Signed By:JORY LOCO
--- NOTE | ~2020-08-14 | CT_ITS ---
EXAMINATION: CT ANGIOGRAM OF THE CHEST WITH AND WITHOUT CONTRAST (CT PULMONARY ANGIOGRAM FOR PE) CLINICAL INFORMATION: Reason for Exam CHest pain. PE? COMPARISON: Portable chest radiographs 08/06/2020, CT chest noncontrast 09/22/2018 TECHNIQUE: Prior to contrast administration, noncontrast localization images were obtained. Subsequently, multidetector volumetric imaging was performed from the thoracic inlet to below the diaphragms following the administration of 65 mL Omnipaque 350 intravenous contrast. Sagittal, coronal, and MIP oblique sagittal reformatted images were obtained on the CT workstation, uploaded to PACS, and reviewed. This CT examination was performed using dose optimization techniques as appropriate, variously including the following: *Automated exposure control *Adjustment of mA and/or kV according to patient size (this includes techniques or standardized protocols for targeted exams where dose is matched to indication/reason for exam; i.e. extremities or head) *Use of iterative reconstruction technique Total exam dose-length product 149 mGy-cm FINDINGS: QUALITY OF STUDY/CONTRAST BOLUS: Satisfactory. PULMONARY ARTERIES: No central or segmental pulmonary emboli. The main pulmonary artery is slightly larger than the aorta. The left and right pulmonary arteries are mildly enlarged, each measuring approximately 2.8 cm in diameter, similar to previous exam. Findings suggest pulmonary hypertension. THORACIC AORTA: No aneurysmal enlargement. No contrast in the aorta to assess for dissection. LUNG: No pneumothorax, airspace consolidation, or suspicious groundglass opacities. Again, there is hyperinflation and emphysematous changes with diffuse coarsening of the interstitial markings. There is coarsening of the bronchiolar markings. Possibility of mild underlying interstitial edema cannot be excluded. Stable pleural-based nodule 0.6 cm posterior medial right upper lobe, series 7/115. There is stable 0.6 cm pleural-based nodule right posterior lateral lower lobe series 7/298. The 4 mm nodule right lower lobe noted previously is not seen with certainty. There is bibasilar subsegmental atelectasis. PLEURA: No pleural effusion or pneumothorax. MEDIASTINUM: No right ventricular strain. There is stable mild mediastinal and smaller hilar nodes similar to CT 09/22/2018. CHEST WALL/AXILLA: No axillary or internal mammary lymphadenopathy. OSSEOUS STRUCTURES: No acute or suspicious osseous abnormality. UPPER ABDOMEN: There is reflux of contrast into the hepatic veins suggesting elevated right heart pressures. Incidental stable cyst seen central liver, 4 HU attenuation and 1.4 x 1.1 cm. Small splenule left upper quadrant 1.[address]/CT angio chest PE protocol IMPRESSION: 1. No pulmonary embolism. 2. Mildly enlarged main and left and right pulmonary arteries similar to prior CT 2019 with reflux contrast into the hepatic veins suggesting pulmonary hypertension. 3. Diffuse emphysematous changes with accentuated interstitial markings and bronchial wall thickening. Difficult to exclude mild underlying interstitial edema. 4. Stable mediastinal and mild hilar adenopathy. Nodularity stable. No effusion. VTE: negative
[2020-08-14 13:15] VITALS: BP 125/54; PULSE 50; RESP 178; TEMP 36.7; O2SAT 94; BMI 18.3
[2020-08-14 14:07] LABS: MANUAL DIFF FLAG NO
[2020-08-14 14:13] LABS: Basophils Absolute Auto 0.1 X10*3/uL (0.0-0.2); Basophils Percent Auto 1.3 % (0-2); Eosinophils Absolute Auto 0.1 X10*3/uL (0.0-0.4); Eosinophils Percent Auto 2.7 % (0-4); Imm Gran Abs Auto 0.02 X10*3/uL (0.00-0.03); Imm Gran Pct Auto 0.4 % (0.0-0.4); Lymphocytes Absolute Auto 1.3 X10*3/uL (1.2-4.9); Lymphocytes Percent Auto 25.2 % (20-40); Mean Corpuscular HGB Conc 30.2 g/dl (31.0-35.0); Mean Corpuscular Hemoglobin 24.6 pg (27.0-33.0); Mean Corpuscular Volume 81.4 fL (80-98); Monocytes Absolute Auto 0.5 X10*3/uL (0.1-1.2); Monocytes Percent Auto 9.2 % (2-11); Neutrophils Absolute Auto 3.2 X10*3/uL (2.0-8.3); Neutrophils Percent Auto 61.2 % (45-73); Platelet Count 159 X10*3/uL (160-400); Red Blood Count 5.28 X10*6/uL (4.20-5.50); Red Cell Distribution Width 20.9 % (11.0-16.0); White Blood Count 5.2 X10*3/uL (4.8-10.8)
[2020-08-14 14:38] VITALS: BP 114/54; PULSE 42; RESP 12; TEMP 36.7; O2SAT 97
[2020-08-14 14:43] LABS: Anion Gap 12 (12-20); Blood Urea Nitrogen 10 mg/dL (9-16); Calcium 9.6 mg/dL (8.4-10.2); Carbon Dioxide 30 mmol/L (22-29); Chloride 104 mmol/L (96-108); Creatinine Clr Calc Pharmacy 51.7; Estimated Glomerular Filt Rate > 60; Glucose Random 73 mg/dL (60-115); Potassium 5.5 mmol/L (3.3-5.1); Sodium 140 mmol/L (135-145)
[2020-08-14 14:52] LABS: Troponin-I High Sensitivity 33.1 ng/L (<3.5-17.0)
--- NOTE | 2020-08-14 15:11 | ED.CHESTPAIN ---
HPI - Chest Pain General Chief Complaint: Chest Pain Stated Complaint: chest pain Time Seen by Provider: 08/14/20 14:06 Source: patient Mode of arrival: ambulatory Limitations: no limitations History of Present Illness HPI narrative: Patient presents to ED for chest pain. Patient states having chronic intermittent chest pain. Patient has been seen in the ED multiple times for this chest pain. Patient states she was seen at a hospital yesterday and discharge her with chest pain. Admitted earlier this month at [facility] for similar presentation and was informed there was no acute cardiac issue. Patient denies any fever, chills, swelling of lower extremities, coughing up blood, calf pain, dizziness, or weakness. Related Data Home Medications Medication Instructions Recorded Confirmed apixaban 5 mg tablet 5 mg PO BID 03/18/20 08/07/20 methadone 5 mg/5 mL oral solution 65 mg PO DAILY ml 03/18/20 08/07/20 albuterol 90 mcg INHALATION Q4-6H PRN 05/30/20 08/07/20 metoprolol succinate 25 mg 25 mg PO DAILY 06/29/20 08/07/20 tablet,extended release 24 hr fluoxetine 10 mg capsule 10 mg PO DAILY 07/16/20 08/07/20 umeclidinium 62.5 mcg/actuation 1 inh INHALATION DAILY 07/16/20 08/07/20 blister powder for inhalation potassium chloride 10 meq PO DAILY 08/06/20 08/07/20 Previous Rx's Medication Instructions Recorded furosemide 20 mg PO DAILY #30 tab 08/01/20 Allergies Allergy/AdvReac Type Severity Reaction Status Date / Time No Known Allergies Allergy Verified 08/07/20 14:44 [No Known Allergies*] Review of Systems Review of Systems: Yes all other systems are reviewed and are negative Constitutional: Constitutional: Reports as per HPI and Reports no additional constitutional complaints Eyes: Eyes: Reports as per HPI and Reports no additional eye complaints ENT: Reports system reviewed and no additional complaints, except as documented and Reports as per HPI Cardiovascular: Cardiovascular: Reports as per HPI, Reports no additional cardiovascular complaints, Reports chest pain and Denies dyspnea on exertion Respiratory: Respiratory: Reports as per HPI, Reports no additional respiratory complaints and Denies dyspnea on exertion Gastrointestinal: Gastrointestinal: Reports as per HPI, Reports no additional gastrointestinal complaints, Denies abdominal pain, Denies nausea and Denies vomiting Genitourinary: Genitourinary: Reports no additional female genitourinary complaints and Reports as per HPI Musculoskeletal: Musculoskeletal: Reports no additional musculoskeletal complaints and Reports as per HPI Neurologic: Reports system reviewed and no additional complaints, except as documented and Reports as per HPI Psychiatric: Psychiatric: Reports no additional psychiatric complaints and Reports as per HPI [facility] Past Medical History Medical History COPD (chronic obstructive pulmonary disease) Ex-smoker HOCM (hypertrophic obstructive cardiomyopathy) Paroxysmal atrial fibrillation WPW (Kfxqf-Gbumzcknx-Thiom syndrome) Surgical History H/O cardiac radiofrequency ablation History of heart surgery (~07/02/18) S/P ventricular septal myectomy Family History Family History Father COPD (chronic obstructive pulmonary disease) Heart disease Mother Heart disease Paternal Grandmother No problems noted. Social History Social History Household Members: Significant Other Housing: Apartment Do you presently have visiting nurse or other home services: Yes ([facility] 1x week) Alcohol intake: never Patient Tobacco Use Status: Former Tobacco user Quit Date: 07/01/20 Cigarettes Per Day: 6 Substance Use Type: Heroin Advance Directives: No Advance Directives Information Provided: No Patient : No service: No Current occupational status: disabled Physical Exam Vital Signs: Vital Signs: Last Vital Signs Temp 98.1 F 08/14/20 14:38 Pulse 52 08/14/20 17:45 Resp 14 08/14/20 17:45 BP 114/54 L 08/14/20 14:38 Pulse Ox 94 08/14/20 17:45 Body Mass Index 18.3 Const: General: cooperative, healthy appearing, comfortable, no acute distress, well developed, alert and awake Orientation/consciousness: patient oriented x3 HENMT: Head: Yes normal to inspection, Yes No palpable skull fracture present, Yes normocephalic and Yes atraumatic Eyes: General: appearance normal, both eyes and all related structures Neck: Neck: Yes normal visual inspection, Yes full ROM, Yes no lymphadenopathy, Yes no meningeal signs, Yes trachea midline, Yes supple and No tender Chest: Chest palpation & inspection: normal inspection of the chest and normal palpation of entire chest wall Resp: Effort & Inspection: normal respiratory effort and able to speak in complete sentences Auscultation: clear to auscultation bilaterally Cardio: Jugular venous distension: no JVD Heart sounds: S1 normal heart sound present and S2 normal heart sound present GI: Inspection: Yes normal to inspection and No abdominal wall ecchymosis Palpation (GI): Soft to palpation, not firm, nontender, no guarding and not rigid : General: Yes no CVA tenderness Back/Spine/Pelvis: Back: no CVA tenderness, No CVA tenderness and No back tenderness Skin: General skin exam: no rashes or lesions noted and elasticity normal Neuro: General: patient oriented x3, no meningeal signs and CN's II-XI intact bilaterally Cranial nerves: Yes CN's II-XII intact bilaterally Extrem: Other: Lower extremity negative for swelling, pitting edema, calf tenderness. General: Yes normal to inspection and Yes full ROM Psych: Appearance: grossly normal, well kempt and not disheveled Course Course Course Narrative: Will do a cardiac evaluation. Reevaluation(s) Reevaluation #1: Patient's troponin and BNP are always elevated. Patient is slightly bradycardic. And able to give any nitrates or morphine due to low blood pressure and low heart rate. Patient is not in any distress. Was sent for chest CT to rule out PE although very unlikely. Time: 14:03 Reevaluation #2: Case was presented to hospitalist Dr. Sawant for admission or observation due to patient risk factors. She came down and evaluated patient and states patient does not need to be admission or observation. She states patient's troponin are always elevated and her BNP also always elevated. She states if Patient's 2nd troponin does not increase by 50% and repeat potassium is normal patient could be discharged. Presently patient is not any stress. Patient states relief with GI cocktail. Sign out to to BEATER DUMPER bhanu to follow labs and cancel discharge papers id needed. Patient informed to follow-up with her alteration tailor apprentice if discharged. Time: 18:49 MDM - Chest Pain MDM Narrative Medical decision making narrative: GERD. Chronic chest pain Lab Data Result diagrams: 08/14/20 14:03 08/14/20 14:03 Labs: Lab Results 08/14/20 08/14/20 08/14/20 Range/Units 14:03 14:03 14:03 WBC 5.2 (4.8-10.8) X10*3/uL RBC 5.28 (4.20-5.50) X10*6/uL Hgb 13.0 (12.0-16.0) g/dl Hct 43.0 (37-47) % MCV 81.4 (80-98) fL MCH 24.6 L (27.0-33.0) pg MCHC 30.2 L (31.0-35.0) g/dl RDW 20.9 H (11.0-16.0) % Plt Count 159 L (160-400) X10*3/uL MPV Not Reportable Immature Gran % (Auto) 0.4 (0.0-0.4) % Neut % (Auto) 61.2 (45-73) % Lymph % (Auto) 25.2 (20-40) % [place] % (Auto) 9.2 (2-11) % Eos % (Auto) 2.7 (0-4) % Baso % (Auto) 1.3 (0-2) % Lymph # (Auto) 1.3 (1.2-4.9) X10*3/uL [place] # (Auto) 0.5 (0.1-1.2) X10*3/uL Eos # (Auto) 0.1 (0.0-0.4) X10*3/uL Baso # (Auto) 0.1 (0.0-0.2) X10*3/uL Abs Immat Gran (auto) 0.02 (0.00-0.03) X10*3/uL Absolute Neuts (auto) 3.2 (2.0-8.3) X10*3/uL Absolute Nucleated RBC 0.000 (0.0-0.012) X10*3/uL Nucleated RBC % (auto) 0.0 (0.0-0.2) /100WBC Sodium 140 (135-145) mmol/L Potassium 5.5 H (3.3-5.1) mmol/L Chloride 104 (96-108) mmol/L Carbon Dioxide 30 H (22-29) mmol/L Anion Gap 12 (12-20) BUN 10 (9-16) mg/dL Creatinine 0.88 (0.5-1.4) mg/dL Estim Creat Clear Calc 51.7 Estimated GFR > 60 Random Glucose 73 (60-115) mg/dL Calcium 9.6 (8.4-10.2) mg/dL Total Bilirubin 0.5 (0.0-1.0) mg/dL Direct Bilirubin 0.2 (0.0-0.5) mg/dL AST 19 (5-31) U/L ALT 7 (0-31) U/L Alkaline Phosphatase 144 H (39-117) U/L Troponin I High Sens 33.1 H* (<3.5-17.0) ng/L B-Natriuretic Peptide 2504 H (<100) pg/mL Total Protein 7.1 (6.5-8.0) g/dL Albumin 3.9 (3.5-5.0) g/dL Lipase 11 (8-78) U/L ECG Data ECG #1: Interpretation: Sinus bradycardia. WPW. Ventricular rate 45. Pr interval 116. QRS 146. QTC 501. Negative STEMI Discharge Plan Discharge Clinical Impression: Chest pain Instructions: Chest Pain (ED) Additional Instructions: Return to the ED immediately worsening chest pain, swelling of lower extremities, calf pain, coughing up blood, fever, chills, shortness of breath, weakness, dizziness, or any other concerning symptoms. Prescriptions: No Action albuterol 90 mcg/actuation Aerosol 90 mcg INHALATION Q4-6H PRN (Reason: Shortness Of Breath Or Wheezing) RF: 0 potassium chloride 10 mEq tablet extended release 10 meq PO DAILY RF: 0 furosemide 20 mg tablet 20 mg PO DAILY Qty: 30 RF: 0 apixaban 5 mg tablet 5 mg PO BID RF: 0 methadone 5 mg/5 mL solution 65 mg PO DAILY RF: 0 metoprolol succinate 25 mg tablet extended release 24 hr 25 mg PO DAILY RF: 0 umeclidinium 62.5 mcg/actuation blister with device 1 inh inhalation DAILY RF: 0 fluoxetine 10 mg capsule 10 mg PO DAILY RF: 0 Referrals: Ned Villalobos MD [Physician] - 2 days (Chronic chest pain. History of the WPW.) Print Language: Ghanaian
[2020-08-14] MEDS: Magnesium Hydrox/Alum Hydrox 30 ML ORAL.SUSP PO (15:23)
[2020-08-14] MEDS: Famotidine/PF 20 MG/2 ML VIAL IVPUSH (15:24)
[2020-08-14] MEDS: Aspirin 325 MG TABLET PO (15:24)
[2020-08-14] MEDS: Lidocaine HCl Viscous 2 % 15 ML SOLUTION MUCOUS MEM (15:24)
[2020-08-14 15:29] LABS: Alanine Aminotransferase 7 U/L (0-31); Albumin Level 3.9 g/dL (3.5-5.0); Alkaline Phosphatase 144 U/L (39-117); Aspartate Amino Transferase 19 U/L (5-31); Bilirubin Direct 0.2 mg/dL (0.0-0.5); Bilirubin Total 0.5 mg/dL (0.0-1.0); Lipase 11 U/L (8-78); Total Protein 7.1 g/dL (6.5-8.0)
[2020-08-14 15:31] LABS: B Type Natriuretic Peptide 2504 pg/mL (<100)
[2020-08-14] MEDS: iohexoL 350 MG/ML 100 ML INFUS..BTL IV ×2 (15:52→15:58)
[2020-08-14] MEDS: Sodium Polystyrene Sulfon/Sorb 15 GM/60 ML ORAL.SUSP 45 GM PO (16:47)
[2020-08-14 17:45] VITALS: PULSE 52; RESP 14; O2SAT 94
[2020-08-14 19:01] LABS: Potassium 4.7 mmol/L (3.3-5.1)
--- NOTE | 2020-08-14 19:15 | PC.NURSE ---
PT LABS REDRAWN. PT DENIES ANY CP AT THIS TIME. PT AWAITING FOR PENDING LABS. WILL CONTINUE TO MONITOR PT.
[2020-08-14 19:17] LABS: Troponin-I High Sensitivity 29.3 ng/L (<3.5-17.0)
[2020-08-14 19:26] VITALS: BP 145/69; PULSE 56; RESP 12; TEMP 36.7; O2SAT 98
--- NOTE | 2020-08-14 20:09 | PC.NURSE ---
PA IN ROOM FOR DISCHARGE INSTRUCTIONS. PT VERBALIZED U/S OF INSTRUCTIONS AND GETTING DRESSED. IV BEING REMOVED AT THIS TIME. AWAITING D/C PAPERWORK.
== END 2020-08-14 20:15 | disposition home or self-care (01) ==
PROVIDERS: Physician Assistant; Emergency Provider Emergency Medicine; PCP Internal Medicine
DX: R07.9 Chest pain, unspecified (principal); I48.0 Paroxysmal atrial fibrillation; J44.9 Chronic obstructive pulmonary disease, unspecified; Z79.01 Long term (current) use of anticoagulants; Z79.899 Other long term (current) drug therapy
CPT/HCPCS: 36415; 71275; 80048; 80076; 83690; 83880; 84132; 84484; 85025; 93005; 96374; 99284; 99285; Q9967

== ENCOUNTER 2020-08-17 12:24 | Emergency (ER) | payer OTHER, SELFPAY ==
--- NOTE | ~2020-08-17 | XR_ITS ---
EXAMINATION: XR CHEST CLINICAL INFORMATION: Chest pain COMPARISON: Chest radiographs 08/06/2020, 07/31/2020, 07/20/2020; CTA chest 08/14/2020. TECHNIQUE: 2 views of the chest were obtained. FINDINGS: There is been prior median sternotomy with mediastinal clips and sternotomy wires. The cardiopericardial silhouette is upper limits of normal. Again, there is diffuse coarsening of the interstitial markings with chronic subpleural accentuated Reddy B lines. There is no definite cephalization of flow. No lobar or segmental airspace consolidation. The costophrenic sulci are clear. The hilar and mediastinal contours and bony structures are stable. XR/XR chest 2V IMPRESSION: Chronic diffuse coarsening interstitial markings similar to prior exams. Possibility of mild underlying interstitial edema cannot be excluded. No effusion.
[2020-08-17 12:26] VITALS: BP 127/66; PULSE 55; RESP 18; TEMP 36.6; O2SAT 95; BMI 18.3
--- NOTE | 2020-08-17 13:35 | ECG_ITS ---
Test Reason : PAIN CHEST SCAR Blood Pressure : / mmHG Vent. Rate : 051 BPM Atrial Rate : 051 BPM P-R Int : 118 ms QRS Dur : 154 ms QT Int : 564 ms P-R-T Axes : 088 -27 173 degrees QTc Int : 519 ms Sinus bradycardia Ffeco-Fziezfunq-Ifcuv Abnormal ECG When compared with ECG of 14-AUG-2020 13:56, No significant change was found Referred By: Martha Antony Electronically Signed By:Osvaldo Rai
--- NOTE | 2020-08-17 13:58 | ED_ITS ---
HPI - General Adult General Chief complaint: General Medical <Martha Antony NP - Last Filed: 08/17/20 16:58> Stated complaint: STINGING SENSATION IN CHEST <Martha Antony NP - Last Filed: 08/17/20 16:58> Time Seen by Provider: 08/17/20 13:34 <Martha Antony NP - Last Filed: 08/17/20 16:58> Source: patient <Martha Antony NP - Last Filed: 08/17/20 16:58> Mode of arrival: ambulatory <Martha Antony NP - Last Filed: 08/17/20 16:58> Limitations: no limitations <Martha Antony NP - Last Filed: 08/17/20 16:58> History of Present Illness HPI narrative: 54-year-old female with a past medical history of hypertrophic cardiomyopathy status post myomectomy, WPW status post ablation, AFib on Eliquis, COPD, congestive heart failure, 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 Patient tells me last evening she notes some discomfort at her prior surgical incision site. NO sob, cough, additional chest pain, weight gain, leg swelling, dizziness, nausea or diaphoresis. <Martha Antony NP - Last Filed: 08/17/20 16:58> Related Data Home medications: Home Medications Medication Instructions Recorded Confirmed apixaban 5 mg tablet 5 mg PO BID 03/18/20 08/07/20 methadone 5 mg/5 mL oral solution 65 mg PO DAILY ml 03/18/20 08/07/20 albuterol 90 mcg INHALATION Q4-6H PRN 05/30/20 08/07/20 metoprolol succinate 25 mg 25 mg PO DAILY 06/29/20 08/07/20 tablet,extended release 24 hr fluoxetine 10 mg capsule 10 mg PO DAILY 07/16/20 08/07/20 umeclidinium 62.5 mcg/actuation 1 inh INHALATION DAILY 07/16/20 08/07/20 blister powder for inhalation potassium chloride 10 meq PO DAILY 08/06/20 08/07/20 Previous Rx's Medication Instructions Recorded furosemide 20 mg PO DAILY #30 tab 08/01/20 <Martha Antony NP - Last Filed: 08/17/20 16:58> Allergies/adverse reactions: Allergies Allergy/AdvReac Type Severity Reaction Status Date / Time No Known Allergies Allergy Verified 08/07/20 14:44 [No Known Allergies*] <Martha Antony NP - Last Filed: 08/17/20 16:58> Review of Systems Review of Systems: Yes all other systems are reviewed and are negative <Martha Antony NP - Last Filed: 08/17/20 16:58> Constitutional: Constitutional: Reports no additional constitutional complaints, Denies body ache(s), Denies chills, Denies fever(s), Denies headache(s) and Denies weakness <Martha Antony NP - Last Filed: 08/17/20 16:58> Eyes: Eyes: Reports no additional eye complaints and Denies change in vision <Martha Antony NP - Last Filed: 08/17/20 16:58> ENT: Reports system reviewed and no additional complaints, except as documented, Denies dizziness, Denies headache(s), Denies nasal congestion, Denies nasal discharge and Denies neck pain <Martha Antony NP - Last Filed: 08/17/20 16:58> Cardiovascular: Cardiovascular: Reports no additional cardiovascular complaints, Reports chest pain, Denies leg edema and Denies dyspnea <Martha Antony NP - Last Filed: 08/17/20 16:58> Respiratory: Respiratory: Reports no additional respiratory complaints, Denies cough and Denies dyspnea <Marhta Antony NP - Last Filed: 08/17/20 16:58> Gastrointestinal: Gastrointestinal: Reports no additional gastrointestinal complaints, Denies abdominal pain, Denies diarrhea, Denies nausea and Denies vomiting <Martha Antony NP - Last Filed: 08/17/20 16:58> Genitourinary: Genitourinary: Reports no additional female genitourinary complaints and Denies urinary incontinence <Martha Antony NP - Last Filed: 08/17/20 16:58> Musculoskeletal: Musculoskeletal: Reports no additional musculoskeletal complaints, Denies back pain, Denies arthralgias, Denies joint swelling, Denies neck pain, Denies numbness and Denies tingling <Martha Antony NP - Last Filed: 08/17/20 16:58> Integumentary/Breasts: Skin/Breast: Reports system reviewed and no additional complaints, except as docu and Denies rash <Martha Antony NP - Last Filed: 08/17/20 16:58> Neurologic: Reports system reviewed and no additional complaints, except as documented, Denies Abnormal speech present, Denies dizziness, Denies headache(s), Denies numbness, Denies tingling and Denies weakness <Martha Antony NP - Last Filed: 08/17/20 16:58> FORMERLY [facility], [facility] Past Medical History Attestation statement: The following information was validated with the patient. <Martha palomino NP - Last Filed: 08/17/20 16:58> Source: old records reviewed and nursing notes reviewed <Martha Antony NP - Last Filed: 08/17/20 16:58> Medical History: Medical History Congestive heart failure COPD (chronic obstructive pulmonary disease) Ex-smoker HOCM (hypertrophic obstructive cardiomyopathy) Paroxysmal atrial fibrillation WPW (Tjzfa-Xowwvgodq-Nvfgu syndrome) <Martha Antony NP - Last Filed: 08/17/20 16:58> Surgical History: Surgical History H/O cardiac radiofrequency ablation History of heart surgery (~07/02/18) S/P ventricular septal myectomy <Martha Antony NP - Last Filed: 08/17/20 16:58> Family History Family History: Family History Father COPD (chronic obstructive pulmonary disease) Heart disease Mother Heart disease Paternal Grandmother No problems noted. <Martha Antony NP - Last Filed: 08/17/20 16:58> Social History Social History: Social History Household Members: Significant Other Housing: Apartment Do you presently have visiting nurse or other home services: [facility]) Alcohol intake: never Patient Tobacco Use Status: Former Tobacco user Quit Date: 07/01/20 Cigarettes Per Day: 6 Substance Use Type: Heroin Advance Directives: Yes Advance Directives Information Provided: Yes Advance Directives on File: No Patient : No service: No Current occupational status: disabled <Martha Antony NP - Last Filed: 08/17/20 16:58> Physical Exam Vital Signs: Vital Signs: Last Vital Signs Temp 97.9 F 08/17/20 12:26 Pulse 51 08/17/20 14:33 Resp 16 08/17/20 14:33 BP 122/53 L 08/17/20 14:33 Pulse Ox 99 08/17/20 14:33 Body Mass Index 18.3 <Martha Antony NP - Last Filed: 08/17/20 16:58> Vital Signs: Last Vital Signs Temp 97.9 F 08/17/20 12:26 Pulse 51 08/17/20 14:33 Resp 16 08/17/20 14:33 BP 122/53 L 08/17/20 14:33 Pulse Ox 99 08/17/20 14:33 Body Mass Index 18.3 <Rodrigo Stone NP - Last Filed: 08/17/20 18:33> Const: General: cooperative, healthy appearing, comfortable and no acute distress <Martha Antony NP - Last Filed: 08/17/20 16:58> Orientation/consciousness: patient oriented x3 <Martha Antony NP - Last Filed: 08/17/20 16:58> Limitations: no limitations <Martha Antony NP - Last Filed: 08/17/20 16:58> HENMT: Head: Yes normal to inspection <Martha Antony NP - Last Filed: 08/17/20 16:58> Ears: hearing grossly normal bilaterally <Martha Antony NP - Last Filed: 08/17/20 16:58> General nose exam: Normal external nose present <Martha Antony NP - Last Filed: 08/17/20 16:58> Face and sinus: Yes normal facial exam <Martha Antony NP - Last Filed: 08/17/20 16:58> Mouth: Normal oral and palatal mucosa present <Martha Antony NP - Last Filed: 08/17/20 16:58> Throat: Yes posterior oropharynx normal <Martha Antony NP - Last Filed: 08/17/20 16:58> Eyes: General: appearance normal, both eyes and all related structures <Martha Antony NP - Last Filed: 08/17/20 16:58> Pupils: Equal, round and reactive pupils present <Martha Antony NP - Last Filed: 08/17/20 16:58> Neck: Neck: Yes normal visual inspection <Martha Antony NP - Last Filed: 08/17/20 16:58> Chest: Other: at the more inferior aspect of the prior surgical incison there is some mild tenderness with NO erythema/swelling/fluctuance or induration <Martha Antony NP - Last Filed: 08/17/20 16:58> Chest palpation & inspection: normal inspection of the chest <Martha Antony NP - Last Filed: 08/17/20 16:58> Resp: Effort & Inspection: normal respiratory effort <Martha Antony NP - Last Filed: 08/17/20 16:58> Auscultation: clear to auscultation bilaterally <Martha Antony NP - Last Filed: 08/17/20 16:58> Cardio: Rate: regular rate <Martha Antony NP - Last Filed: 08/17/20 16:58> Rhythm: regular rhythm <Martha Antony NP - Last Filed: 08/17/20 16:58> Peripheral pulses: Peripheral pulses 2+ throughout <Martha Antony NP - Last Filed: 08/17/20 16:58> GI: Inspection: Yes normal to inspection <Martha Antony NP - Last Filed: 08/17/20 16:58> Palpation (GI): Soft to palpation and nontender <Martha Antony NP - Last Filed: 08/17/20 16:58> Auscultation: normal bowel sounds <Martha Antony NP - Last Filed: 08/17/20 16:58> Back/Spine/Pelvis: Thoracic/Lumbar Spine: thoracic and lumbar spine normal to inspection <Martha Antony NP - Last Filed: 08/17/20 16:58> Skin: General skin exam: no rashes or lesions noted <Martha Antony NP - Last Filed: 08/17/20 16:58> Neuro: General: patient oriented x3, no focal motor deficits and normal sensation to monofilament <Martha Antony NP - Last Filed: 08/17/20 16:58> Cranial nerves: Yes Equal, round and reactive pupils present <Martha Antony NP - Last Filed: 08/17/20 16:58> Cognition (Neuro): normal cognition <Martha Antony NP - Last Filed: 08/17/20 16:58> Speech: No Abnormal speech present <Martha Antony NP - Last Filed: 08/17/20 16:58> Gait exam (Neuro): Normal gait present <Martha Antony NP - Last Filed: 08/17/20 16:58> Motor exam (neuro): 5/5 motor strength present throughout <Martha Antony NP - Last Filed: 08/17/20 16:58> Extrem: General: Yes normal to inspection, Yes no pedal edema and Yes no calf tenderness <Martha Antony NP - Last Filed: 08/17/20 16:58> Course Course Course Narrative: 54 yo female here with incisional site pain at chest since last evening with no other symptoms. Site appears normal with no obvious swelling, redness or concern for infection. Will check labs, EKG, CXR. 1515-EKG at baseline. Labs are unremarkable with exception of a chronically elevated troponin. Will plan for repeat 3hr. CXR shows chronic diffuse coars ening interstitial markings similar to previous. 1700-Sign out to Rodrigo [employer] pending repeat troponin. <Martha Antony NP - Last Filed: 08/17/20 16:58> Remained stable. Troponin without delta. Atypical chest pain. Multiple presentation for similar type complaint. Overall nontoxic in. Pain-free at this time. Extensive history will follow-up closely with her primary care and Cardiology. She feels comfortable plan requesting discharge. Stable for discharge. <Rodrigo Stone NP - Last Filed: 08/17/20 18:33> Medical Decision Making Medical Records Medical records reviewed: Yes I reviewed the patient's medical records. <Martha Antony NP - Last Filed: 08/17/20 16:58> Lab Data Lab results reviewed: Yes I reviewed the patient's lab results. <Martha Antony NP - Last Filed: 08/17/20 16:58> Result diagrams: : 08/17/20 13:59 08/17/20 13:59 <Martha Antony NP - Last Filed: 08/17/20 16:58> Labs: Lab Results 08/17/20 08/17/20 08/17/20 Range/Units 13:59 13:59 13:59 WBC 6.3 (4.8-10.8) X10*3/uL RBC 5.07 (4.20-5.50) X10*6/uL Hgb 12.5 (12.0-16.0) g/dl Hct 41.5 (37-47) % MCV 81.9 (80-98) fL MCH 24.7 L (27.0-33.0) pg MCHC 30.1 L (31.0-35.0) g/dl RDW 20.9 H (11.0-16.0) % Plt Count 158 L (160-400) X10*3/uL MPV Not Reportable Immature Gran % (Auto) 0.5 H (0.0-0.4) % Neut % (Auto) 69.0 (45-73) % Lymph % (Auto) 20.6 (20-40) % Candler % (Auto) 7.6 (2-11) % Eos % (Auto) 1.7 (0-4) % Baso % (Auto) 0.6 (0-2) % Lymph # (Auto) 1.3 (1.2-4.9) X10*3/uL Candler # (Auto) 0.5 (0.1-1.2) X10*3/uL Eos # (Auto) 0.1 (0.0-0.4) X10*3/uL Baso # (Auto) 0.0 (0.0-0.2) X10*3/uL Abs Immat Gran (auto) 0.03 (0.00-0.03) X10*3/uL Absolute Neuts (auto) 4.4 (2.0-8.3) X10*3/uL Absolute Nucleated RBC 0.000 (0.0-0.012) X10*3/uL Nucleated RBC % (auto) 0.0 (0.0-0.2) /100WBC Sodium 139 (135-145) mmol/L Potassium 4.3 (3.3-5.1) mmol/L Chloride 104 (96-108) mmol/L Carbon Dioxide 27 (22-29) mmol/L Anion Gap 12 (12-20) BUN 13 (9-16) mg/dL Creatinine 0.91 (0.5-1.4) mg/dL Estim Creat Clear Calc 50.0 Estimated GFR > 60 Random Glucose 72 (60-115) mg/dL Calcium 9.2 (8.4-10.2) mg/dL Magnesium 2.3 (1.6-2.6) mg/dL Total Bilirubin 0.4 (0.0-1.0) mg/dL Direct Bilirubin 0.2 (0.0-0.5) mg/dL AST 19 (5-31) U/L ALT 8 (0-31) U/L Alkaline Phosphatase 138 H (39-117) U/L Troponin I High Sens (<3.5-17.0) ng/L Total Protein 7.1 (6.5-8.0) g/dL Albumin 3.9 (3.5-5.0) g/dL 08/17/20 08/17/20 Range/Units 13:59 17:06 WBC (4.8-10.8) X10*3/uL RBC (4.20-5.50) X10*6/uL Hgb (12.0-16.0) g/dl Hct (37-47) % MCV (80-98) fL MCH (27.0-33.0) pg MCHC (31.0-35.0) g/dl RDW (11.0-16.0) % Plt Count (160-400) X10*3/uL MPV Immature Gran % (Auto) (0.0-0.4) % Neut % (Auto) (45-73) % Lymph % (Auto) (20-40) % Candler % (Auto) (2-11) % Eos % (Auto) (0-4) % Baso % (Auto) (0-2) % Lymph # (Auto) (1.2-4.9) X10*3/uL Candler # (Auto) (0.1-1.2) X10*3/uL Eos # (Auto) (0.0-0.4) X10*3/uL Baso # (Auto) (0.0-0.2) X10*3/uL Abs Immat Gran (auto) (0.00-0.03) X10*3/uL Absolute Neuts (auto) (2.0-8.3) X10*3/uL Absolute Nucleated RBC (0.0-0.012) X10*3/uL Nucleated RBC % (auto) (0.0-0.2) /100WBC Sodium (135-145) mmol/L Potassium (3.3-5.1) mmol/L Chloride (96-108) mmol/L Carbon Dioxide (22-29) mmol/L Anion Gap (12-20) BUN (9-16) mg/dL Creatinine (0.5-1.4) mg/dL Estim Creat Clear Calc Estimated GFR Random Glucose (60-115) mg/dL Calcium (8.4-10.2) mg/dL Magnesium (1.6-2.6) mg/dL Total Bilirubin (0.0-1.0) mg/dL Direct Bilirubin (0.0-0.5) mg/dL AST (5-31) U/L ALT (0-31) U/L Alkaline Phosphatase (39-117) U/L Troponin I High Sens 36.2 H* 35.4 H* (<3.5-17.0) ng/L Total Protein (6.5-8.0) g/dL Albumin (3.5-5.0) g/dL <Martha Arpan, [employer] - Last Filed: 08/17/20 16:58> Lab Results 08/17/20 08/17/20 08/17/20 Range/Units 13:59 13:59 13:59 WBC 6.3 (4.8-10.8) X10*3/uL RBC 5.07 (4.20-5.50) X10*6/uL Hgb 12.5 (12.0-16.0) g/dl Hct 41.5 (37-47) % MCV 81.9 (80-98) fL MCH 24.7 L (27.0-33.0) pg MCHC 30.1 L (31.0-35.0) g/dl RDW 20.9 H (11.0-16.0) % Plt Count 158 L (160-400) X10*3/uL MPV Not Reportable Immature Gran % (Auto) 0.5 H (0.0-0.4) % Neut % (Auto) 69.0 (45-73) % Lymph % (Auto) 20.6 (20-40) % Candler % (Auto) 7.6 (2-11) % Eos % (Auto) 1.7 (0-4) % Baso % (Auto) 0.6 (0-2) % Lymph # (Auto) 1.3 (1.2-4.9) X10*3/uL Candler # (Auto) 0.5 (0.1-1.2) X10*3/uL Eos # (Auto) 0.1 (0.0-0.4) X10*3/uL Baso # (Auto) 0.0 (0.0-0.2) X10*3/uL Abs Immat Gran (auto) 0.03 (0.00-0.03) X10*3/uL Absolute Neuts (auto) 4.4 (2.0-8.3) X10*3/uL Absolute Nucleated RBC 0.000 (0.0-0.012) X10*3/uL Nucleated RBC % (auto) 0.0 (0.0-0.2) /100WBC Sodium 139 (135-145) mmol/L Potassium 4.3 (3.3-5.1) mmol/L Chloride 104 (96-108) mmol/L Carbon Dioxide 27 (22-29) mmol/L Anion Gap 12 (12-20) BUN 13 (9-16) mg/dL Creatinine 0.91 (0.5-1.4) mg/dL Estim Creat Clear Calc 50.0 Estimated GFR > 60 Random Glucose 72 (60-115) mg/dL Calcium 9.2 (8.4-10.2) mg/dL Magnesium 2.3 (1.6-2.6) mg/dL Total Bilirubin 0.4 (0.0-1.0) mg/dL Direct Bilirubin 0.2 (0.0-0.5) mg/dL AST 19 (5-31) U/L ALT 8 (0-31) U/L Alkaline Phosphatase 138 H (39-117) U/L Troponin I High Sens (<3.5-17.0) ng/L Total Protein 7.1 (6.5-8.0) g/dL Albumin 3.9 (3.5-5.0) g/dL 08/17/20 08/17/20 Range/Units 13:59 17:06 WBC (4.8-10.8) X10*3/uL RBC (4.20-5.50) X10*6/uL Hgb (12.0-16.0) g/dl Hct (37-47) % MCV (80-98) fL MCH (27.0-33.0) pg MCHC (31.0-35.0) g/dl RDW (11.0-16.0) % Plt Count (160-400) X10*3/uL MPV Immature Gran % (Auto) (0.0-0.4) % Neut % (Auto) (45-73) % Lymph % (Auto) (20-40) % Candler % (Auto) (2-11) % Eos % (Auto) (0-4) % Baso % (Auto) (0-2) % Lymph # (Auto) (1.2-4.9) X10*3/uL Candler # (Auto) (0.1-1.2) X10*3/uL Eos # (Auto) (0.0-0.4) X10*3/uL Baso # (Auto) (0.0-0.2) X10*3/uL Abs Immat Gran (auto) (0.00-0.03) X10*3/uL Absolute Neuts (auto) (2.0-8.3) X10*3/uL Absolute Nucleated RBC (0.0-0.012) X10*3/uL Nucleated RBC % (auto) (0.0-0.2) /100WBC Sodium (135-145) mmol/L Potassium (3.3-5.1) mmol/L Chloride (96-108) mmol/L Carbon Dioxide (22-29) mmol/L Anion Gap (12-20) BUN (9-16) mg/dL Creatinine (0.5-1.4) mg/dL Estim Creat Clear Calc Estimated GFR Random Glucose (60-115) mg/dL Calcium (8.4-10.2) mg/dL Magnesium (1.6-2.6) mg/dL Total Bilirubin (0.0-1.0) mg/dL Direct Bilirubin (0.0-0.5) mg/dL AST (5-31) U/L ALT (0-31) U/L Alkaline Phosphatase (39-117) U/L Troponin I High Sens 36.2 H* 35.4 H* (<3.5-17.0) ng/L Total Protein (6.5-8.0) g/dL Albumin (3.5-5.0) g/dL <Rodrigo Stone NP - Last Filed: 08/17/20 18:33> Imaging Data Chest x-ray: Attestation: I personally reviewed and interpreted this imaging study as follows: <Martha Antony NP - Last Filed: 08/17/20 16:58> Radiologist's impression: FINDINGS: There is been prior median sternotomy with mediastinal clips and sternotomy wires. The cardiopericardial silhouette is upper limits of normal. Again, there is diffuse coarsening of the interstitial markings with chronic subpleural accentuated Reddy B lines. There is no definite cephalization of flow. No lobar or segmental airspace consolidation. The costophrenic sulci are clear. The hilar and mediastinal contours and bony structures are stable. XR/XR chest 2V IMPRESSION: Chronic diffuse coarsening interstitial markings similar to prior exams. Possibility of mild underlying interstitial edema cannot be excluded. No effusion. <Martha Antony NP - Last Filed: 08/17/20 16:58> ECG Data Attestation: I personally reviewed and interpreted this ECG as follows: <Martha Antony NP - Last Filed: 08/17/20 16:58> Interpretation: SB with rate 51, WPW unchanged from EKG 08/14/20 <Martha Antony NP - Last Filed: 08/17/20 16:58> Discharge Plan Discharge Clinical Impression: Chest pain <Martha Antony NP - Last Filed: 08/17/20 16:58> Patient Disposition: Home, Self-Care <Martha Antony NP - Last Filed: 08/17/20 16:58> Instructions: Chest Wall Pain (ED) <Martha Antony NP - Last Filed: 08/17/20 16:58> Additional Instructions: You have some discomfort at your surgical incision site. There is no evidence of redness or warmth or infection. Your labs, chest x-ray and EKG looked normal. This is likely some nerve pain at the site. Follow-up with your PCP <Martha Antony NP - Last Filed: 08/17/20 16:58> Prescriptions: No Action albuterol 90 mcg/actuation Aerosol 90 mcg INHALATION Q4-6H PRN (Reason: Shortness Of Breath Or Wheezing) RF: 0 potassium chloride 10 mEq tablet extended release 10 meq PO DAILY RF: 0 furosemide 20 mg tablet 20 mg PO DAILY Qty: 30 RF: 0 apixaban 5 mg tablet 5 mg PO BID RF: 0 methadone 5 mg/5 mL solution 65 mg PO DAILY RF: 0 metoprolol succinate 25 mg tablet extended release 24 hr 25 mg PO DAILY RF: 0 umeclidinium 62.5 mcg/actuation blister with device 1 inh inhalation DAILY RF: 0 fluoxetine 10 mg capsule 10 mg PO DAILY RF: 0 <Martha Antony NP - Last Filed: 08/17/20 16:58> Referrals: Jose Roberto Weiss MD [Primary Care Provider] - 2 days <Martha Antony NP - Last Filed: 08/17/20 16:58>
[2020-08-17 14:06] LABS: Imm Gran Abs Auto 0.03 X10*3/uL (0.00-0.03); Imm Gran Pct Auto 0.5 % (0.0-0.4); Lymphocytes Percent Auto 20.6 % (20-40)
[2020-08-17 14:08] LABS: Basophils Percent Auto 0.6 % (0-2); Eosinophils Absolute Auto 0.1 X10*3/uL (0.0-0.4); Eosinophils Percent Auto 1.7 % (0-4); Hematocrit 41.5 % (37-47); Hemoglobin 12.5 g/dl (12.0-16.0); Lymphocytes Absolute Auto 1.3 X10*3/uL (1.2-4.9); Mean Corpuscular HGB Conc 30.1 g/dl (31.0-35.0); Mean Corpuscular Hemoglobin 24.7 pg (27.0-33.0); Mean Corpuscular Volume 81.9 fL (80-98); Monocytes Absolute Auto 0.5 X10*3/uL (0.1-1.2); Monocytes Percent Auto 7.6 % (2-11); Neutrophils Absolute Auto 4.4 X10*3/uL (2.0-8.3); Platelet Count 158 X10*3/uL (160-400); Red Blood Count 5.07 X10*6/uL (4.20-5.50); Red Cell Distribution Width 20.9 % (11.0-16.0); White Blood Count 6.3 X10*3/uL (4.8-10.8)
[2020-08-17 14:13] LABS: MANUAL DIFF FLAG NO
[2020-08-17 14:29] LABS: Alanine Aminotransferase 8 U/L (0-31); Albumin Level 3.9 g/dL (3.5-5.0); Alkaline Phosphatase 138 U/L (39-117); Anion Gap 12 (12-20); Aspartate Amino Transferase 19 U/L (5-31); Bilirubin Direct 0.2 mg/dL (0.0-0.5); Bilirubin Total 0.4 mg/dL (0.0-1.0); Blood Urea Nitrogen 13 mg/dL (9-16); Calcium 9.2 mg/dL (8.4-10.2); Carbon Dioxide 27 mmol/L (22-29); Chloride 104 mmol/L (96-108); Estimated Glomerular Filt Rate > 60; Glucose Random 72 mg/dL (60-115); Magnesium 2.3 mg/dL (1.6-2.6); Potassium 4.3 mmol/L (3.3-5.1); Sodium 139 mmol/L (135-145); Total Protein 7.1 g/dL (6.5-8.0)
[2020-08-17 14:33] VITALS: BP 122/53; PULSE 51; RESP 16; O2SAT 99
[2020-08-17 14:36] LABS: Troponin-I High Sensitivity 36.2 ng/L (<3.5-17.0)
[2020-08-17 17:58] LABS: Troponin-I High Sensitivity 35.4 ng/L (<3.5-17.0)
== END 2020-08-17 18:37 | disposition home or self-care (01) ==
PROVIDERS: Nurse Practitioner Family; Emergency Provider Emergency Medicine; PCP Internal Medicine
DX: R07.89 Other chest pain (principal); I48.91 Unspecified atrial fibrillation; I42.2 Other hypertrophic cardiomyopathy; I50.9 Heart failure, unspecified; I27.20 Pulmonary hypertension, unspecified; J44.9 Chronic obstructive pulmonary disease, unspecified; F11.20 Opioid dependence, uncomplicated; Z79.01 Long term (current) use of anticoagulants; Z79.899 Other long term (current) drug therapy
CPT/HCPCS: 36415; 71046; 80048; 80076; 83735; 84484; 85025; 93005; 99283; 99284

== ENCOUNTER 2020-08-19 14:50 | Emergency (ER) | payer OTHER, SELFPAY ==
--- NOTE | ~2020-08-19 | XR_ITS ---
EXAMINATION: XR CHEST CLINICAL INFORMATION: Chest pain. COMPARISON: Chest 08/17/2020 TECHNIQUE: Frontal view of the chest was obtained. FINDINGS: The lungs are well-expanded with increased markings in both lungs. No consolidation seen. The heart size and pulmonary vascularity is normal. There are median sternotomy sutures and mediastinal ronal from previous intervention. No gross bony abnormality seen. XR/XR chest 1V IMPRESSION: Diffuse increased coarse interstitial markings in both lungs are stable compared to 08/17/2020. No acute pneumonic process seen.
[2020-08-19 14:58] VITALS: BP 112/57; PULSE 55; RESP 18; TEMP 36.6; O2SAT 55; BMI 18.3
--- NOTE | 2020-08-19 15:03 | ECG_ITS ---
Test Reason : CHEST PAIN Blood Pressure : / mmHG Vent. Rate : 048 BPM Atrial Rate : 048 BPM P-R Int : 124 ms QRS Dur : 150 ms QT Int : 554 ms P-R-T Axes : 087 -35 159 degrees QTc Int : 494 ms Sinus bradycardia Left axis deviation [id number]-[id number] Abnormal ECG When compared with ECG of 17-AUG-2020 13:52, No significant changes seen Referred By: Generic ED Physician Electronically Signed By:Osvaldo Rai
--- NOTE | 2020-08-19 15:51 | ED.CHESTPAIN ---
HPI - Chest Pain General Chief Complaint: Chest Pain <PRUDENCE Mon - Last Filed: 08/19/20 18:12> Stated Complaint: chest pain <PRUDENCE Mon - Last Filed: 08/19/20 18:12> Time Seen by Provider: 08/19/20 15:47 <PRUDENCE Mon - Last Filed: 08/19/20 18:12> Source: patient <PRUDENCE Mon - Last Filed: 08/19/20 18:12> Mode of arrival: ambulatory <PRUDENCE Mon - Last Filed: 08/19/20 18:12> Limitations: no limitations <PRUDENCE Mon - Last Filed: 08/19/20 18:12> History of Present Illness HPI narrative: 54 y/o female with history of WPW, hypertrophic cardiomyopathy s/p myomectomy 2 years ago, atrial fibrillation s/p ablation 04/2020 on Xarelto and Lopressor, COPD, former smoker who presents to the ER from home with acute onset of intermittent, sharp, non-radiating lower central chest pain that started 2 hours ago when she was watching TV. She reports seeing Dr. Burrell 2 days ago for continued sterontomy pain. She states this pain is similar but a little bit worse. She has no radiation of the pain, no SOB, N/V, diaphoresis. She has been compliant with all of her medications. This is her 5th ER visit this month for similar complaints. <PRUDENCE Mon - Last Filed: 08/19/20 18:12> MD complaint: chest pain <PRUDENCE Mon - Last Filed: 08/19/20 18:12> Pertinent past history: other <PRUDENCE Mon Last Filed: 08/19/20 18:12> Onset (ago): hour(s) (2) <PRUDENCE oMn - Last Filed: 08/19/20 18:12> Timing of current episode: episodic <PRUDENCE Mon - Last Filed: 08/19/20 18:12> Prior episodes: Yes <PRUDENCE Mon Last Filed: 08/19/20 18:12> Onset: during rest <PRUDENCE Mon - Last Filed: 08/19/20 18:12> Pain location: substernal <PRUDENCE Mon - Last Filed: 08/19/20 18:12> Pain radiation: none <PRUDENCE Mon - Last Filed: 08/19/20 18:12> Severity: mild <PRUDENCE Mon - Last Filed: 08/19/20 18:12> Pain scale (0-10): 4 <PRUDENCE Mon - Last Filed: 08/19/20 18:12> Quality: sharp <PRUDENCE Mon - Last Filed: 08/19/20 18:12> Relieving factors: nothing <PRUDENCE Mon - Last Filed: 08/19/20 18:12> Exacerbating factors: palpation <PRUDENCE Mon - Last Filed: 08/19/20 18:12> Treatment prior to arrival: none <PRUDENCE Mon - Last Filed: 08/19/20 18:12> Risk Factors Coronary artery disease risk factors: smoking history <PRUDENCE Mon - Last Filed: 08/19/20 18:12> Related Data Home Medications: Home Medications Medication Instructions Recorded Confirmed apixaban 5 mg tablet 5 mg PO BID 03/18/20 08/19/20 methadone 5 mg/5 mL oral solution 65 mg PO DAILY ml 03/18/20 08/19/20 metoprolol succinate 25 mg 25 mg PO DAILY 06/29/20 08/19/20 tablet,extended release 24 hr fluoxetine 10 mg capsule 10 mg PO DAILY 07/16/20 08/19/20 umeclidinium 62.5 mcg/actuation 1 inh INHALATION DAILY 07/16/20 08/19/20 blister powder for inhalation albuterol sulfate 2 puff PO Q4H PRN 08/19/20 08/19/20 Previous Rx's Medication Instructions Recorded furosemide 20 mg PO DAILY #30 tab 08/01/20 <PRUDENCE Mon - Last Filed: 08/19/20 18:12> Allergies/Adverse Reactions: Allergies Allergy/AdvReac Type Severity Reaction Status Date / Time No Known Allergies Allergy Verified 08/19/20 14:58 [No Known Allergies*] <PRUDENCE Mon - Last Filed: 08/19/20 18:12> Review of Systems Review of Systems: Constitutional: No Fever, No Chills ENT/Mouth: No sore throat, No Rhinorrhea, No Swallowing Difficulty Cardiovascular: + Chest Pain, No SOB, No Orthopnea, No Edema Respiratory: No Cough, No Sputum, No Wheezing, No dyspnea Gastrointestinal: No Nausea, No Vomiting, No Diarrhea, No abdominal Pain Genitourinary: No Dysuria, No Urinary Frequency, No Hematuria Musculoskeletal: No joint pain, No Myalgias Skin: No Skin Lesions, No rash Neuro: No Weakness, No Numbness, No Dizziness, No Headache Psych: No Anxiety/Panic, No Depression Heme/Lymph: No Bruising, No Lymphadenopathy <PRUDENCE Mon - Last Filed: 08/19/20 18:12> [facility] Past Medical History Attestation statement: The following information was validated with the patient. <PRUDENCE Mon - Last Filed: 08/19/20 18:12> Medical History: Medical History Congestive heart failure COPD (chronic obstructive pulmonary disease) Ex-smoker HOCM (hypertrophic obstructive cardiomyopathy) Paroxysmal atrial fibrillation WPW (Ufyuv-Hzoodwqoz-Hlxjg syndrome) <PRUDENCE Mon - Last Filed: 08/19/20 18:12> Surgical History: Surgical History H/O cardiac radiofrequency ablation History of heart surgery (~07/02/18) S/P ventricular septal myectomy <PRUDENCE Mon - Last Filed: 08/19/20 18:12> Family History Family History: Family History Father COPD (chronic obstructive pulmonary disease) Heart disease Mother Heart disease Paternal Grandmother No problems noted. <PRUDENCE Mon - Last Filed: 08/19/20 18:12> Social History Social History: Social History Household Members: Significant Other Housing: Apartment Do you presently have visiting nurse or other home services: Yes ([facility] 1x week) Alcohol intake: never Patient Tobacco Use Status: Former Tobacco user Quit Date: 07/01/20 Cigarettes Per Day: 6 Substance Use Type: Heroin Advance Directives: No Advance Directives Information Provided: Yes Patient : No service: No Current occupational status: disabled <PRUDENCE Mon - Last Filed: 08/19/20 18:12> Physical Exam Vital Signs: Vital Signs: Last Vital Signs Temp 97.9 F 08/19/20 14:58 Pulse 65 08/19/20 20:06 Resp 10 L 08/19/20 20:06 BP 130/57 L 08/19/20 20:06 Pulse Ox 96 08/19/20 20:06 Body Mass Index 18.3 Appearance: Alert. Oriented X3. No acute distress. Eyes: Pupils equal, round and reactive to light. ENT: Pharynx normal. Neck: Normal inspection. Neck supple. CVS: Bradycardic, +harsh murmur best appreciated along left sternal border. Pulses normal. Well healed sternotomy on chest wall, palpable sternal wires tender throughout Respiratory: No respiratory distress. Breath sounds normal. Abdomen: Soft and nontender. +BS x4 Skin: Skin warm and dry. Normal skin color. Normal skin turgor. No rashes. Extremities: No lower extremity edema. Neuro: Oriented X 3. No motor deficit. No sensory deficit. <PRUDENCE Mon - Last Filed: 08/19/20 18:12> Vital Signs: Last Vital Signs Temp 97.9 F 08/19/20 14:58 Pulse 65 08/19/20 20:06 Resp 10 L 08/19/20 20:06 BP 130/57 L 08/19/20 20:06 Pulse Ox 96 08/19/20 20:06 Body Mass Index 18.3 <Martha Antony NP - Last Filed: 08/19/20 20:21> Course Course Course Narrative: 54 y/o female with extensive cardiac history presenting with acute onset of chest pain 2 hours ago. Similar presentations with recent worsening sternotomy pains. No signs of infection on the chest wall. Will get EKG, troponin, BNP, and monitor closely. Doubt ACS. Doubt PE given she is anticoagulated. She does not appear to be in acute heart failure. <PRUDENCE Mon - Last Filed: 08/19/20 18:12> 2020-Troponin x 2 delta, chronically elevated. Will dispo home with cards f/u. <Martha Antony NP - Last Filed: 08/19/20 20:21> Reevaluation(s) Reevaluation #1: Initial troponin 27, similar to prior. Will get repeat. Signed out to Martha OVERTON who will assume care. Anticipate d/c home with outpatient follow up for her atypical chest pain. <PRUDENCE Mon - Last Filed: 08/19/20 18:12> Consultations Consultation #1: Cardiology Dr. Rai - spoke with him at 6pm - recommending trending troponin, if flat can be discharged home with outpatient follow up. <PRUDENCE Mon - Last Filed: 08/19/20 18:12> MDM - Chest Pain Medical Records Data Attestation: I reviewed the patient's medical records. <PRUDENCE Mon - Last Filed: 08/19/20 18:12> Lab Data Attestation: I reviewed the patient's lab results. <PRUDENCE Mon - Last Filed: 08/19/20 18:12> Result diagrams: : 08/19/20 16:09 08/19/20 16:09 <PRUDENCE Mon - Last Filed: 08/19/20 18:12> Labs: Lab Results 08/19/20 08/19/20 08/19/20 Range/Units 16:08 16:09 16:09 WBC 6.9 (4.8-10.8) X10*3/uL RBC 4.81 (4.20-5.50) X10*6/uL Hgb 12.2 (12.0-16.0) g/dl Hct 39.2 (37-47) % MCV 81.5 (80-98) fL MCH 25.4 L (27.0-33.0) pg MCHC 31.1 (31.0-35.0) g/dl RDW 20.8 H (11.0-16.0) % Plt Count 146 L (160-400) X10*3/uL MPV Not Reportable Immature Gran % (Auto) 0.3 (0.0-0.4) % Neut % (Auto) 65.3 (45-73) % Lymph % (Auto) 22.3 (20-40) % [place] % (Auto) 9.2 (2-11) % Eos % (Auto) 2.2 (0-4) % Baso % (Auto) 0.7 (0-2) % Lymph # (Auto) 1.5 (1.2-4.9) X10*3/uL [place] # (Auto) 0.6 (0.1-1.2) X10*3/uL Eos # (Auto) 0.2 (0.0-0.4) X10*3/uL Baso # (Auto) 0.1 (0.0-0.2) X10*3/uL Abs Immat Gran (auto) 0.02 (0.00-0.03) X10*3/uL Absolute Neuts (auto) 4.5 (2.0-8.3) X10*3/uL Absolute Nucleated RBC 0.000 (0.0-0.012) X10*3/uL Nucleated RBC % (auto) 0.0 (0.0-0.2) /100WBC PT (10.8-13.0) SEC INR (0.9-1.1) APTT (24.1-38.0) SEC D-Dimer Sodium 137 (135-145) mmol/L Potassium 4.2 (3.3-5.1) mmol/L Chloride 104 (96-108) mmol/L Carbon Dioxide 25 (22-29) mmol/L Anion Gap 12 (12-20) BUN 16 (9-16) mg/dL Creatinine 0.80 (0.5-1.4) mg/dL Estim Creat Clear Calc 56.9 Estimated GFR > 60 Random Glucose 91 (60-115) mg/dL Calcium 9.3 (8.4-10.2) mg/dL Troponin I High Sens (<3.5-17.0) ng/L B-Natriuretic Peptide 2942 H (<100) pg/mL 08/19/20 08/19/20 08/19/20 Range/Units 16:09 16:49 19:08 WBC (4.8-10.8) X10*3/uL RBC (4.20-5.50) X10*6/uL Hgb (12.0-16.0) g/dl Hct (37-47) % MCV (80-98) fL MCH (27.0-33.0) pg MCHC (31.0-35.0) g/dl RDW (11.0-16.0) % Plt Count (160-400) X10*3/uL MPV Immature Gran % (Auto) (0.0-0.4) % Neut % (Auto) (45-73) % Lymph % (Auto) (20-40) % [place] % (Auto) (2-11) % Eos % (Auto) (0-4) % Baso % (Auto) (0-2) % Lymph # (Auto) (1.2-4.9) X10*3/uL [place] # (Auto) (0.1-1.2) X10*3/uL Eos # (Auto) (0.0-0.4) X10*3/uL Baso # (Auto) (0.0-0.2) X10*3/uL Abs Immat Gran (auto) (0.00-0.03) X10*3/uL Absolute Neuts (auto) (2.0-8.3) X10*3/uL Absolute Nucleated RBC (0.0-0.012) X10*3/uL Nucleated RBC % (auto) (0.0-0.2) /100WBC PT 17.3 H D (10.8-13.0) SEC INR 1.5 H (0.9-1.1) APTT 40.4 H (24.1-38.0) SEC D-Dimer Cancelled Sodium (135-145) mmol/L Potassium (3.3-5.1) mmol/L Chloride (96-108) mmol/L Carbon Dioxide (22-29) mmol/L Anion Gap (12-20) BUN (9-16) mg/dL Creatinine (0.5-1.4) mg/dL Estim Creat Clear Calc Estimated GFR Random Glucose (60-115) mg/dL Calcium (8.4-10.2) mg/dL Troponin I High Sens 27.9 H* 27.7 H* (<3.5-17.0) ng/L B-Natriuretic Peptide (<100) pg/mL <PRUDENCE Mon - Last Filed: 08/19/20 18:12> Lab Results 08/19/20 08/19/20 08/19/20 Range/Units 16:08 16:09 16:09 WBC 6.9 (4.8-10.8) X10*3/uL RBC 4.81 (4.20-5.50) X10*6/uL Hgb 12.2 (12.0-16.0) g/dl Hct 39.2 (37-47) % MCV 81.5 (80-98) fL MCH 25.4 L (27.0-33.0) pg MCHC 31.1 (31.0-35.0) g/dl RDW 20.8 H (11.0-16.0) % Plt Count 146 L (160-400) X10*3/uL MPV Not Reportable Immature Gran % (Auto) 0.3 (0.0-0.4) % Neut % (Auto) 65.3 (45-73) % Lymph % (Auto) 22.3 (20-40) % [place] % (Auto) 9.2 (2-11) % Eos % (Auto) 2.2 (0-4) % Baso % (Auto) 0.7 (0-2) % Lymph # (Auto) 1.5 (1.2-4.9) X10*3/uL [place] # (Auto) 0.6 (0.1-1.2) X10*3/uL Eos # (Auto) 0.2 (0.0-0.4) X10*3/uL Baso # (Auto) 0.1 (0.0-0.2) X10*3/uL Abs Immat Gran (auto) 0.02 (0.00-0.03) X10*3/uL Absolute Neuts (auto) 4.5 (2.0-8.3) X10*3/uL Absolute Nucleated RBC 0.000 (0.0-0.012) X10*3/uL Nucleated RBC % (auto) 0.0 (0.0-0.2) /100WBC PT (10.8-13.0) SEC INR (0.9-1.1) APTT (24.1-38.0) SEC D-Dimer Sodium 137 (135-145) mmol/L Potassium 4.2 (3.3-5.1) mmol/L Chloride 104 (96-108) mmol/L Carbon Dioxide 25 (22-29) mmol/L Anion Gap 12 (12-20) BUN 16 (9-16) mg/dL Creatinine 0.80 (0.5-1.4) mg/dL Estim Creat Clear Calc 56.9 Estimated GFR > 60 Random Glucose 91 (60-115) mg/dL Calcium 9.3 (8.4-10.2) mg/dL Troponin I High Sens (<3.5-17.0) ng/L B-Natriuretic Peptide 2942 H (<100) pg/mL 08/19/20 08/19/20 08/19/20 Range/Units 16:09 16:49 19:08 WBC (4.8-10.8) X10*3/uL RBC (4.20-5.50) X10*6/uL Hgb (12.0-16.0) g/dl Hct (37-47) % MCV (80-98) fL MCH (27.0-33.0) pg MCHC (31.0-35.0) g/dl RDW (11.0-16.0) % Plt Count (160-400) X10*3/uL MPV Immature Gran % (Auto) (0.0-0.4) % Neut % (Auto) (45-73) % Lymph % (Auto) (20-40) % [place] % (Auto) (2-11) % Eos % (Auto) (0-4) % Baso % (Auto) (0-2) % Lymph # (Auto) (1.2-4.9) X10*3/uL [place] # (Auto) (0.1-1.2) X10*3/uL Eos # (Auto) (0.0-0.4) X10*3/uL Baso # (Auto) (0.0-0.2) X10*3/uL Abs Immat Gran (auto) (0.00-0.03) X10*3/uL Absolute Neuts (auto) (2.0-8.3) X10*3/uL Absolute Nucleated RBC (0.0-0.012) X10*3/uL Nucleated RBC % (auto) (0.0-0.2) /100WBC PT 17.3 H D (10.8-13.0) SEC INR 1.5 H (0.9-1.1) APTT 40.4 H (24.1-38.0) SEC D-Dimer Cancelled Sodium (135-145) mmol/L Potassium (3.3-5.1) mmol/L Chloride (96-108) mmol/L Carbon Dioxide (22-29) mmol/L Anion Gap (12-20) BUN (9-16) mg/dL Creatinine (0.5-1.4) mg/dL Estim Creat Clear Calc Estimated GFR Random Glucose (60-115) mg/dL Calcium (8.4-10.2) mg/dL Troponin I High Sens 27.9 H* 27.7 H* (<3.5-17.0) ng/L B-Natriuretic Peptide (<100) pg/mL <Martha Antony NP - Last Filed: 08/19/20 20:21> ECG Data ECG #1: Attestation: I personally reviewed and interpreted this ECG as follows: <PRUDENCE Mon - Last Filed: 08/19/20 18:12> ECG interpretation date: 08/19/20 <PRUDENCE Mon - Last Filed: 08/19/20 18:12> ECG interpretation time: 18:03 <PRUDENCE Mon - Last Filed: 08/19/20 18:12> Prior ECG tracings: available for review <PRUDENCE Mon - Last Filed: 08/19/20 18:12> Interpretation: sinus bradycardia, WPW, LVH with wide QRS, HR 48 bpm, similar to previous <PRUDENCE Mon - Last Filed: 08/19/20 18:12> Discharge Plan Discharge Clinical Impression: Atypical chest pain <PRUDENCE Mon - Last Filed: 08/19/20 18:12> Patient Disposition: Home, Self-Care <PRUDENCE Mon - Last Filed: 08/19/20 18:12> Instructions: Chest Pain (ED) <PRUDENCE Mon - Last Filed: 08/19/20 18:12> Additional Instructions: Your EKG and lab workup was similar to your previous. Follow up with your [employer] In[employer]. If you have worsening pain come back to the ER for further evaluation. <PRUDENCE Mon - Last Filed: 08/19/20 18:12> Prescriptions: No Action albuterol sulfate 90 mcg/actuation HFA aerosol inhaler 2 puff PO Q4H PRN (Reason: Shortness Of Breath) RF: 0 furosemide 20 mg tablet 20 mg PO DAILY Qty: 30 RF: 0 apixaban 5 mg tablet 5 mg PO BID RF: 0 methadone 5 mg/5 mL solution 65 mg PO DAILY RF: 0 metoprolol succinate 25 mg tablet extended release 24 hr 25 mg PO DAILY RF: 0 umeclidinium 62.5 mcg/actuation blister with device 1 inh inhalation DAILY RF: 0 fluoxetine 10 mg capsule 10 mg PO DAILY RF: 0 <PRUDENCE Mon Last Filed: 08/19/20 18:12>
--- NOTE | 2020-08-19 16:07 | PHA.MEDREC ---
Pharmacy Consult ? Medication Reconciliation Pharmacy has completed the medication reconciliation. Pt confirms she takes methadone 65 mg daily but needs to be reinstated by clinic, last dose was approx a week ago, no longer taking amiodarone and toprol xl 25 mg is daily not bid, also stopped taking potassium
[2020-08-19 16:13] VITALS: O2SAT 97
[2020-08-19 16:19] LABS: Basophils Absolute Auto 0.1 X10*3/uL (0.0-0.2); Basophils Percent Auto 0.7 % (0-2); Imm Gran Abs Auto 0.02 X10*3/uL (0.00-0.03); Imm Gran Pct Auto 0.3 % (0.0-0.4); Mean Corpuscular HGB Conc 31.1 g/dl (31.0-35.0); SCAN SMEAR FLAG 1; WBC ABN SCTR 1
[2020-08-19 16:20] LABS: Eosinophils Absolute Auto 0.2 X10*3/uL (0.0-0.4); Eosinophils Percent Auto 2.2 % (0-4); Hematocrit 39.2 % (37-47); Hemoglobin 12.2 g/dl (12.0-16.0); Lymphocytes Absolute Auto 1.5 X10*3/uL (1.2-4.9); Lymphocytes Percent Auto 22.3 % (20-40); Mean Corpuscular Hemoglobin 25.4 pg (27.0-33.0); Mean Corpuscular Volume 81.5 fL (80-98); Monocytes Absolute Auto 0.6 X10*3/uL (0.1-1.2); Monocytes Percent Auto 9.2 % (2-11); Neutrophils Absolute Auto 4.5 X10*3/uL (2.0-8.3); Neutrophils Percent Auto 65.3 % (45-73); Platelet Count 146 X10*3/uL (160-400); Red Blood Count 4.81 X10*6/uL (4.20-5.50); Red Cell Distribution Width 20.8 % (11.0-16.0)
[2020-08-19 16:22] LABS: MANUAL DIFF FLAG NO; PLT ABN DIST 1; WBC ABN SCTR FOR CBC 1
[2020-08-19 16:23] LABS: White Blood Count 6.9 X10*3/uL (4.8-10.8)
[2020-08-19 16:45] LABS: Anion Gap 12 (12-20); Blood Urea Nitrogen 16 mg/dL (9-16); Calcium 9.3 mg/dL (8.4-10.2); Carbon Dioxide 25 mmol/L (22-29); Chloride 104 mmol/L (96-108); Creatinine Clr Calc Pharmacy 56.9; Estimated Glomerular Filt Rate > 60; Glucose Random 91 mg/dL (60-115); Potassium 4.2 mmol/L (3.3-5.1); Sodium 137 mmol/L (135-145)
[2020-08-19 16:52] LABS: B Type Natriuretic Peptide 2942 pg/mL (<100)
[2020-08-19 17:00] LABS: INTERNATIONAL NORM RATIO 1.5 (0.9-1.1); Prothrombin Time 17.3 SEC (10.8-13.0)
[2020-08-19 17:01] LABS: Troponin-I High Sensitivity 27.9 ng/L (<3.5-17.0)
[2020-08-19 17:03] LABS: Partial Thromboplastin Time 40.4 SEC (24.1-38.0)
--- NOTE | 2020-08-19 17:48 | PC.NURSE ---
patient sitting up in bed sleeping, awaiting troponin redraw at 7pm
[2020-08-19 19:10] VITALS: BP 125/58; PULSE 51; RESP 10; O2SAT 97
--- NOTE | 2020-08-19 19:43 | PC.NURSE ---
REPORT TAKEN FROM [facility] AGUDELO, FIRST CONTACT WITH PT. A&Ox3, SKIN PWD RESPIRATIONS EVEN UNLABORED, SITTING UP IN BED REQUESTING FOOD, VSS, SINUS DAVIS ON MONITOR. AWAITING REPEAT TROPONIN RESULT AND POSSIBLE DC HOME. AWARE OF PLAN OF CARE.
[2020-08-19 20:05] LABS: Troponin-I High Sensitivity 27.7 ng/L (<3.5-17.0)
[2020-08-19 20:06] VITALS: BP 130/57; PULSE 65; RESP 10; O2SAT 96
== END 2020-08-19 20:48 | disposition home or self-care (01) ==
PROVIDERS: Physician Assistant; Emergency Provider Emergency Medicine; PCP Internal Medicine
DX: R07.89 Other chest pain (principal); I42.2 Other hypertrophic cardiomyopathy; I45.6 Pre-excitation syndrome; I48.91 Unspecified atrial fibrillation; Z79.01 Long term (current) use of anticoagulants; Z79.899 Other long term (current) drug therapy; Z87.891 Personal history of nicotine dependence
CPT/HCPCS: 36415; 71045; 80048; 83880; 84484; 85025; 85610; 85730; 93005; 99283; 99285

== ENCOUNTER 2020-08-24 18:23 | Emergency (ER) | payer OTHER, SELFPAY ==
--- NOTE | 2020-08-24 | ECG_ITS ---
Test Reason : BRADYCARDIA Blood Pressure : / mmHG Vent. Rate : 050 BPM Atrial Rate : 050 BPM P-R Int : 128 ms QRS Dur : 146 ms QT Int : 560 ms P-R-T Axes : 082 -36 165 degrees QTc Int : 510 ms Sinus bradycardia with occasional Premature ventricular complexes Ventricular pre-excitation, WPW pattern type B Abnormal ECG When compared with ECG of 19-AUG-2020 15:20, Premature ventricular complexes are now Present Referred By: Generic ED Physician Electronically Signed By:NIXON GOODWIN MD
[2020-08-24 18:37] VITALS: BP 107/50; BP 116/67; PULSE 49; PULSE 56; RESP 18; TEMP 36.8; O2SAT 94; O2SAT 97; BMI 18.3
[2020-08-24 19:20] LABS: SCAN SMEAR FLAG 1
[2020-08-24 19:22] LABS: Basophils Absolute Auto 0.1 X10*3/uL (0.0-0.2); Basophils Percent Auto 0.9 % (0-2); Eosinophils Absolute Auto 0.2 X10*3/uL (0.0-0.4); Eosinophils Percent Auto 2.8 % (0-4); Hematocrit 39.7 % (37-47); Hemoglobin 12.7 g/dl (12.0-16.0); Imm Gran Abs Auto 0.03 X10*3/uL (0.00-0.03); Imm Gran Pct Auto 0.4 % (0.0-0.4); Lymphocytes Absolute Auto 1.4 X10*3/uL (1.2-4.9); Lymphocytes Percent Auto 19.9 % (20-40); Mean Corpuscular Hemoglobin 26.1 pg (27.0-33.0); Mean Corpuscular Volume 81.5 fL (80-98); Monocytes Absolute Auto 0.8 X10*3/uL (0.1-1.2); Monocytes Percent Auto 11.2 % (2-11); Neutrophils Absolute Auto 4.5 X10*3/uL (2.0-8.3); Neutrophils Percent Auto 64.8 % (45-73); Platelet Count 153 X10*3/uL (160-400); Red Blood Count 4.87 X10*6/uL (4.20-5.50); White Blood Count 6.9 X10*3/uL (4.8-10.8)
[2020-08-24 19:32] LABS: MANUAL DIFF FLAG NO; PLT ABN DIST 1
[2020-08-24 19:37] LABS: Alanine Aminotransferase < 6 U/L (0-31); Albumin Level 3.9 g/dL (3.5-5.0); Alkaline Phosphatase 138 U/L (39-117); Anion Gap 11 (12-20); Aspartate Amino Transferase 17 U/L (5-31); Bilirubin Total 0.4 mg/dL (0.0-1.0); Blood Urea Nitrogen 10 mg/dL (9-16); Calcium 9.4 mg/dL (8.4-10.2); Carbon Dioxide 29 mmol/L (22-29); Chloride 101 mmol/L (96-108); Creatinine Clr Calc Pharmacy 52.3; Estimated Glomerular Filt Rate > 60; Glucose Random 74 mg/dL (60-115); Potassium 4.1 mmol/L (3.3-5.1); Sodium 137 mmol/L (135-145); Total Protein 7.2 g/dL (6.5-8.0)
== END 2020-08-24 20:15 | disposition left against medical advice (07) ==
PROVIDERS: Emergency Provider Emergency Medicine
DX: R10.9 Unspecified abdominal pain (principal)
CPT/HCPCS: 36415; 80053; 85025; 93005; 99283

== ENCOUNTER 2020-08-25 10:37 | Emergency (ER) | payer OTHER, SELFPAY ==
--- NOTE | ~2020-08-25 | XR_ITS ---
EXAMINATION: XR CHEST CLINICAL INFORMATION: Shortness of breath COMPARISON: Previous chest x-ray most recent July 2020, TECHNIQUE: 2 views of the chest were obtained. FINDINGS: The cardiac and mediastinal contours are stable. There are surgical clips in the anterior mediastinum and median sternotomy wires. The lungs are well inflated. The lungs are clear. There is no pleural effusion or pneumothorax. Bony structures are unremarkable. XR/XR chest 2V IMPRESSION: Well-inflated lungs. No evidence for acute disease in the chest.
[2020-08-25 10:44] VITALS: BP 92/57; PULSE 80; RESP 16; TEMP 36.8; O2SAT 99; BMI 20.2
--- NOTE | 2020-08-25 12:23 | ECG_ITS ---
Test Reason : DYSPNEA Blood Pressure : / mmHG Vent. Rate : 081 BPM Atrial Rate : 049 BPM P-R Int : 000 ms QRS Dur : 140 ms QT Int : 442 ms P-R-T Axes : 000 -39 134 degrees QTc Int : 513 ms Rhythm shows atrial flutter with variable block [id number] with variable QRS width Abnormal ECG When compared with ECG of 24-AUG-2020 18:53, Atrial flutter has replaced Sinus rhythm Vent. rate has increased BY 31 BPM Referred By: Martha Antony Electronically Signed By:NIXON GOODWIN MD
--- NOTE | 2020-08-25 12:46 | ED_ITS ---
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 Per patient she woke up this morning and while sitting at the kitchen table she started to have some dyspnea. She denies any chest pain. She tells me that yesterday she noticed her lower legs seem more swollen from baseline but today they seemed to be back to their normal size. They recently did increase her Lasix from 20 mg to 40 mg about 2 weeks ago. She has had multiple ER visits to for similar complaints in addition to complaints for chest pain. She occasionally gets admitted for congestive heart failure. Related Data Home Medications Medication Instructions Recorded Confirmed apixaban 5 mg tablet 5 mg PO BID 03/18/20 08/19/20 methadone 5 mg/5 mL oral solution 65 mg PO DAILY ml 03/18/20 08/19/20 metoprolol succinate 25 mg 25 mg PO DAILY 06/29/20 08/19/20 tablet,extended release 24 hr fluoxetine 10 mg capsule 10 mg PO DAILY 07/16/20 08/19/20 umeclidinium 62.5 mcg/actuation 1 inh INHALATION DAILY 07/16/20 08/19/20 blister powder for inhalation albuterol sulfate 2 puff PO Q4H PRN 08/19/20 08/19/20 Previous Rx's Medication Instructions Recorded furosemide 20 mg PO DAILY #30 tab 08/01/20 Allergies Allergy/AdvReac Type Severity Reaction Status Date / Time No Known Allergies Allergy Verified 08/24/20 18:36 [No Known Allergies*] Review of Systems Review of Systems: Yes all other systems are reviewed and are negative Constitutional: Constitutional: Reports no additional constitutional complaints, Denies body ache(s), Denies chills, Denies fever(s), Denies headache(s) and Denies weakness Eyes: Eyes: Reports no additional eye complaints and Denies change in vision ENT: Reports system reviewed and no additional complaints, except as documented, Denies dizziness, Denies headache(s), Denies nasal congestion, Denies nasal discharge and Denies neck pain Cardiovascular: Cardiovascular: Reports no additional cardiovascular com plaints, Denies chest pain, Reports leg edema and Reports dyspnea Respiratory: Respiratory: Reports no additional respiratory complaints, Denies cough and Reports dyspnea Gastrointestinal: Gastrointestinal: Reports no additional gastrointestinal complaints, Denies abdominal pain, Denies diarrhea, Denies nausea and Denies vomiting Genitourinary: Genitourinary: Reports no additional female genitourinary complaints and Denies urinary incontinence Musculoskeletal: Musculoskeletal: Reports no additional musculoskeletal complaints, Denies back pain, Denies arthralgias, Denies joint swelling, Denies neck pain, Denies numbness and Denies tingling Integumentary/Breasts: Skin/Breast: Reports system reviewed and no additional complaints, except as docu and Denies rash Neurologic: Reports system reviewed and no additional complaints, except as documented, Denies Abnormal speech present, Denies dizziness, Denies headache(s), Denies numbness, Denies tingling and Denies weakness PMF Past Medical History Attestation statement: The following information was validated with the patient. Source: old records reviewed and nursing notes reviewed Medical History Congestive heart failure COPD (chronic obstructive pulmonary disease) Ex-smoker HOCM (hypertrophic obstructive cardiomyopathy) Paroxysmal atrial fibrillation WPW (Kljiq-Ngylojady-Hyski syndrome) Surgical History H/O cardiac radiofrequency ablation History of heart surgery (~07/02/18) S/P ventricular septal myectomy Family History Family History Father COPD (chronic obstructive pulmonary disease) Heart disease Mother Heart disease Paternal Grandmother No problems noted. Social History Social History Household Members: Significant Other Housing: Apartment Do you presently have visiting nurse or other home services: Yes ([facility] 1x week) Alcohol intake: former Patient Tobacco Use Status: Former Tobacco user Quit Date: 07/01/20 Cigarettes Per Day: 6 Use of substances other than those prescribed or required for medical reasons: No Substance Use Type: Heroin Advance Directives: No Advance Directives Information Provided: No service: No Current occupational status: disabled Physical Exam Vital Signs: Vital Signs: Last Vital Signs Temp 98.2 F 08/25/20 10:44 Pulse 78 08/25/20 14:20 Resp 12 08/25/20 14:20 BP 117/75 08/25/20 14:20 Pulse Ox 98 08/25/20 14:20 Body Mass Index 20.2 Const: Other: Thin-appearing Orientation/consciousness: patient oriented x3 Limitations: no limitations HENMT: Head: Yes normal to inspection Ears: hearing grossly normal bilaterally General nose exam: Normal external nose present Face and sinus: Yes normal facial exam Mouth: Normal oral and palatal mucosa present Throat: Yes posterior oropharynx normal Eyes: General: appearance normal, both eyes and all related structures Pupils: Equal, round and reactive pupils present Neck: Neck: Yes normal visual inspection Chest: Chest palpation & inspection: normal inspection of the chest Resp: Effort & Inspection: normal respiratory effort Auscultation: clear to auscultation bilaterally Cardio: Rate: regular rate Rhythm: regular rhythm Peripheral pulses: Peripheral pulses 2+ throughout GI: Inspection: Yes normal to inspection Palpation (GI): Soft to palpation and nontender Auscultation: normal bowel sounds Back/Spine/Pelvis: Thoracic/Lumbar Spine: thoracic and lumbar spine normal to inspection Skin: Other: multiple areas of scarring with erythema over the left forearm with no obvious cellulitis General skin exam: no rashes or lesions noted Neuro: Other: sleeping in room, arouses to verbal General: patient oriented x3, no focal motor deficits and normal sensation to monofilament Cranial nerves: Yes Equal, round and reactive pupils present Cognition (Neuro): nor mal cognition Speech: No Abnormal speech present Gait exam (Neuro): Normal gait present Motor exam (neuro): 5/5 motor strength present throughout Extrem: Other: scant bilateral nonpitting edema just around the ankles with no erythema or warmth General: Yes normal to inspection and Yes no calf tenderness Course Course Course Narrative: 54-year-old female with an extensive cardiac history presents with acute onset of shortness of breath noticed this morning. She has multiple presentations for similar symptoms and has been admitted for congestive heart failure before. On arrival though she is sleeping, respiratory even and nonlabored. No hypertension or clinical signs or symptoms concerning for CHF. Will however get EKG, troponin, BNP, chest x-ray. - troponin chronically elevated. Due to acute symptoms will plan for repeat 3 hour troponin 1500- Patient refused repeat troponin. She tells me she is actually feeling improved like to go home. Her repeat EKG does show that she has AFib with rate of 81. I did discuss the patient that this may be contributing to her shortness of breath as she has been in normal sinus rhythm for the last few visits and her heart rate then was in the 50s. She tells me that she goes in and out of AFib. She is compliant with taking her Eliquis. Since she has not had any RVR with the afib then I do not think admission would be beneficial. chest x-ray negative. BNP actually lower than previous with no other clinical signs or symptoms concerning for congestive heart failure. Initial troponin was elevated. Patient is chronically elevated 20-40 when she comes into the emergency department. Again she does not want to do a repeat troponin and at this point with no reports of chest pain I do not think it is necessary. reviewed worrisome signs and symptoms and when to return to the emergency department. Comfortable discharge home. MDM - SOB/Dyspnea MDM Narrative Medical decision making narrative: ACS Differential Diagnosis Differential diagnosis: Likely congestive heart failure and pneumonia Medical Records Attestation: I reviewed the patient's medical records. Lab Data Attestation: I reviewed the patient's lab results. Result diagrams: 08/25/20 12:48 08/25/20 12:48 Labs: Lab Results 08/25/20 08/25/20 08/25/20 Range/Units 12:48 12:48 12:48 WBC 7.2 (4.8-10.8) X10*3/uL RBC 5.20 (4.20-5.50) X10*6/uL Hgb 12.8 (12.0-16.0) g/dl Hct 41.7 (37-47) % MCV 80.2 (80-98) fL MCH 24.6 L (27.0-33.0) pg MCHC 30.7 L (31.0-35.0) g/dl RDW 21.0 H (11.0-16.0) % Plt Count 157 L (160-400) X10*3/uL MPV Not Reportable Immature Gran % (Auto) 0.4 (0.0-0.4) % Neut % (Auto) 69.0 (45-73) % Lymph % (Auto) 17.1 L (20-40) % [place] % (Auto) 10.6 (2-11) % Eos % (Auto) 2.2 (0-4) % Baso % (Auto) 0.7 (0-2) % Lymph # (Auto) 1.2 (1.2-4.9) X10*3/uL [place] # (Auto) 0.8 (0.1-1.2) X10*3/uL Eos # (Auto) 0.2 (0.0-0.4) X10*3/uL Baso # (Auto) 0.1 (0.0-0.2) X10*3/uL Abs Immat Gran (auto) 0.03 (0.00-0.03) X10*3/uL Absolute Neuts (auto) 5.0 (2.0-8.3) X10*3/uL Absolute Nucleated RBC 0.000 (0.0-0.012) X10*3/uL Nucleated RBC % (auto) 0.0 (0.0-0.2) /100WBC Sodium 138 (135-145) mmol/L Potassium 4.6 (3.3-5.1) mmol/L Chloride 104 (96-108) mmol/L Carbon Dioxide 26 (22-29) mmol/L Anion Gap 13 (12-20) BUN 12 (9-16) mg/dL Creatinine 0.82 (0.5-1.4) mg/dL Estim Creat Clear Calc 61.3 Estimated GFR > 60 Random Glucose 104 D (60-115) mg/dL Calcium 9.6 (8.4-10.2) mg/dL Magnesium 2.2 (1.6-2.6) mg/dL Total Bilirubin 0.3 (0.0-1.0) mg/dL Direct Bilirubin 0.2 (0.0-0.5) mg/dL AST 18 (5-31) U/L ALT < 6 (0-31) U/L Alkaline Phosphatase 137 H (39-117) U/L Troponin I High Sens 32.5 H* (<3.5-17.0) ng/L B-Natriuretic Peptide 1783 H (<100) pg/mL Total Protein 7.0 (6.5-8.0) g/dL Albumin 3.7 (3.5-5.0) g/dL Imaging Data Chest x-ray: Attestation: I personally reviewed and interpreted this imaging study as follows: Radiologist's impression: EXAMINATION: XR CHEST CLINICAL INFORMATION: Shortness of breath COMPARISON: Previous chest x-ray most recent July 2020 23, TECHNIQUE: 2 views of the chest were obtained. FINDINGS: The cardiac and mediastinal contours are stable. There are surgical clips in the anterior mediastinum and median sternotomy wires. The lungs are well inflated. The lungs are clear. There is no pleural effusion or pneumothorax. Bony structures are unremarkable. XR/XR chest 2V IMPRESSION: Well-inflated lungs. No evidence for acute disease in the chest. ECG Data Attestation: I personally reviewed and interpreted this ECG as follows: ECG interpretation date: 08/25/20 ECG interpretation time: 12:36 Interpretation: artifact present. Difficult to interpret. Rate of 81, WPW no humaira with LBBB. Plan for repeat. Discharge Plan Discharge Clinical Impression: A-fib, Shortness of breath Patient Disposition: Home, Self-Care Instructions: A-fib (Atrial Fibrillation) (ED), Shortness of Breath (ED) Additional Instructions: your EKG showed that you are in AFib today. Your heart rate is low bit faster than normal with a rate of 80-90. This might make you feel more short of breath from her baseline. 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 Your initial troponin was elevated but you refused a repeat troponin. Prescriptions: No Action albuterol sulfate 90 mcg/actuation HFA aerosol inhaler 2 puff PO Q4H PRN (Reason: Shortness Of Breath) RF: 0 furosemide 20 mg tablet 20 mg PO DAILY Qty: 30 RF: 0 apixaban 5 mg tablet 5 mg PO BID RF: 0 methadone 5 mg/5 mL solution 65 mg PO DAILY RF: 0 metoprolol succinate 25 mg tablet extended release 24 hr 25 mg PO DAILY RF: 0 umeclidinium 62.5 mcg/actuation blister with device 1 inh inhalation DAILY RF: 0 fluoxetine 10 mg capsule 10 mg PO DAILY RF: 0 Referrals: Ned Villalobos MD [Physician] - 2 days
[2020-08-25 12:49] VITALS: BP 114/48; PULSE 90; RESP 12; O2SAT 100
[2020-08-25 12:53] LABS: MANUAL DIFF FLAG NO
[2020-08-25 13:06] LABS: Basophils Absolute Auto 0.1 X10*3/uL (0.0-0.2); Basophils Percent Auto 0.7 % (0-2); Eosinophils Absolute Auto 0.2 X10*3/uL (0.0-0.4); Eosinophils Percent Auto 2.2 % (0-4); Hematocrit 41.7 % (37-47); Hemoglobin 12.8 g/dl (12.0-16.0); Imm Gran Abs Auto 0.03 X10*3/uL (0.00-0.03); Imm Gran Pct Auto 0.4 % (0.0-0.4); Lymphocytes Absolute Auto 1.2 X10*3/uL (1.2-4.9); Lymphocytes Percent Auto 17.1 % (20-40); Mean Corpuscular HGB Conc 30.7 g/dl (31.0-35.0); Mean Corpuscular Hemoglobin 24.6 pg (27.0-33.0); Mean Corpuscular Volume 80.2 fL (80-98); Monocytes Absolute Auto 0.8 X10*3/uL (0.1-1.2); Monocytes Percent Auto 10.6 % (2-11); Platelet Count 157 X10*3/uL (160-400); White Blood Count 7.2 X10*3/uL (4.8-10.8)
[2020-08-25 13:28] LABS: Alanine Aminotransferase < 6 U/L (0-31); Albumin Level 3.7 g/dL (3.5-5.0); Alkaline Phosphatase 137 U/L (39-117); Anion Gap 13 (12-20); Aspartate Amino Transferase 18 U/L (5-31); B Type Natriuretic Peptide 1783 pg/mL (<100); Bilirubin Direct 0.2 mg/dL (0.0-0.5); Bilirubin Total 0.3 mg/dL (0.0-1.0); Blood Urea Nitrogen 12 mg/dL (9-16); Calcium 9.6 mg/dL (8.4-10.2); Carbon Dioxide 26 mmol/L (22-29); Chloride 104 mmol/L (96-108); Creatinine Clr Calc Pharmacy 61.3; Estimated Glomerular Filt Rate > 60; Glucose Random 104 mg/dL (60-115); Magnesium 2.2 mg/dL (1.6-2.6); Potassium 4.6 mmol/L (3.3-5.1); Sodium 138 mmol/L (135-145); Troponin-I High Sensitivity 32.5 ng/L (<3.5-17.0)
--- NOTE | 2020-08-25 14:00 | PC.NURSE ---
Patient asleep in bed in no distress. Respirations are even and nonlabored
[2020-08-25 14:20] VITALS: BP 117/75; PULSE 78; RESP 12; O2SAT 98
--- NOTE | 2020-08-25 14:48 | PC.NURSE ---
Patient refuses to have any repeat lab work done and states she wants to go home.
--- NOTE | 2020-08-25 15:00 | ECG_ITS ---
Test Reason : REPEAT Blood Pressure : / mmHG Vent. Rate : 081 BPM Atrial Rate : 081 BPM P-R Int : 000 ms QRS Dur : 140 ms QT Int : 464 ms P-R-T Axes : 000 -13 162 degrees QTc Int : 539 ms Atrial flutter with variable conduction with pre-excitation with varying QRS duration Abnormal ECG When compared with ECG of 25-AUG-2020 12:36, No significant changes seen Referred By: Simone Luis Electronically Signed By:NIXON GOODWIN MD
== END 2020-08-25 15:37 | disposition home or self-care (01) ==
PROVIDERS: Nurse Practitioner Family; Emergency Provider Emergency Medicine Emergency Medical Services; PCP Internal Medicine
DX: R06.02 Shortness of breath (principal); I48.0 Paroxysmal atrial fibrillation; I50.9 Heart failure, unspecified; I42.2 Other hypertrophic cardiomyopathy; J44.9 Chronic obstructive pulmonary disease, unspecified; Z79.01 Long term (current) use of anticoagulants; Z79.899 Other long term (current) drug therapy
CPT/HCPCS: 36415; 71046; 80048; 80076; 83735; 83880; 84484; 85025; 93005; 99285

== ENCOUNTER 2020-08-25 17:27 | Emergency (ER) | payer OTHER, SELFPAY ==
[2020-08-25 17:45] VITALS: BP 106/68; PULSE 68; O2SAT 98
[2020-08-25 17:46] VITALS: BP 94/54; PULSE 75; RESP 16; TEMP 36.2; O2SAT 97; BMI 18.3
== END 2020-08-25 21:22 | disposition left against medical advice (07) ==
LOC: HO.ED 21:22
PROVIDERS: Emergency Provider Emergency Medicine
DX: R06.00 Dyspnea, unspecified (principal)
CPT/HCPCS: 99281; 99282

== ENCOUNTER 2020-09-01 17:15 | Emergency (ER) | payer OTHER, SELFPAY ==
--- NOTE | ~2020-09-01 | XR_ITS ---
EXAMINATION: XR CHEST CLINICAL INFORMATION: Shortness of breath COMPARISON: 08/25/2020 along with studies dating back to 09/22/2018. In addition, a CT scan from 04/21/2016 is available. TECHNIQUE: 2 views of the chest were obtained. FINDINGS: Lungs are hyperinflated consistent with COPD. Severe emphysematous changes were seen on the prior CT scan. Increased interstitial markings present bilaterally could represent some superimposed mild edema. There are increased lung markings present at both lung bases with some possible Reddy B lines which may go along with this diagnosis. Superimposed infiltrate, especially in the lingula, cannot be entirely excluded.. XR/XR chest 2V IMPRESSION: COPD with question of superimposed mild pulmonary vascular congestion. Question of lingular infiltrate.
[2020-09-01 18:20] VITALS: BP 109/62; PULSE 69; RESP 18; TEMP 36.8; O2SAT 96; BMI 18.3
[2020-09-01 19:57] LABS: Hemoglobin 12.6 g/dl (12.0-16.0); Mean Corpuscular Volume 80.9 fL (80-98); Monocytes Percent Auto 7.9 % (2-11); SCAN SMEAR FLAG 1
[2020-09-01 19:59] LABS: Basophils Absolute Auto 0.1 X10*3/uL (0.0-0.2); Basophils Percent Auto 0.7 % (0-2); Eosinophils Absolute Auto 0.1 X10*3/uL (0.0-0.4); Eosinophils Percent Auto 1.6 % (0-4); Hematocrit 40.6 % (37-47); Imm Gran Abs Auto 0.02 X10*3/uL (0.00-0.03); Imm Gran Pct Auto 0.2 % (0.0-0.4); Lymphocytes Absolute Auto 1.7 X10*3/uL (1.2-4.9); Mean Corpuscular Hemoglobin 25.1 pg (27.0-33.0); Monocytes Absolute Auto 0.7 X10*3/uL (0.1-1.2); Neutrophils Absolute Auto 5.6 X10*3/uL (2.0-8.3); Neutrophils Percent Auto 68.6 % (45-73); Platelet Count 161 X10*3/uL (160-400); Red Blood Count 5.02 X10*6/uL (4.20-5.50); Red Cell Distribution Width 19.9 % (11.0-16.0); White Blood Count 8.2 X10*3/uL (4.8-10.8)
[2020-09-01 20:01] LABS: MANUAL DIFF FLAG NO; PLT ABN DIST 1
[2020-09-01 20:15] LABS: Anion Gap 15 (12-20); Blood Urea Nitrogen 18 mg/dL (9-16); Calcium 9.4 mg/dL (8.4-10.2); Carbon Dioxide 25 mmol/L (22-29); Chloride 100 mmol/L (96-108); Creatinine Clr Calc Pharmacy 48.4; Estimated Glomerular Filt Rate > 60; Glucose Fasting 91 mg/dL (60-99); Potassium 4.3 mmol/L (3.3-5.1); Sodium 136 mmol/L (135-145)
--- NOTE | 2020-09-01 20:17 | ED_ITS ---
HPI - General Adult General Chief complaint: General Medical Stated complaint: ankle swelling, sob Time Seen by Provider: 09/01/20 18:24 Source: patient Mode of arrival: ambulatory Limitations: no limitations History of Present Illness HPI narrative: 54 y/o female with history of hypertrophic cardiomyopathy s/p myomectomy, WPW, afib s/p ablation on Eliquis, COPD, CHF, 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 She has been compliant with her lasix 20 mg BID. She denies increase in salt intake. She has been mildly short of breath with exertion and has an intermittent cough of green phlegm which is new for her. She denies fever, chills, N/V/D, abdominal pain. No chest pain. MD complaint: ankle swelling Onset (ago): day(s) (2) Location: left, right and lower extremity Radiation: non-radiation Severity: mild Severity scale (1-10): 3 Quality: aching Pain Consistency: intermittent Relieving factors: rest Exacerbating factors: movement Associated symptoms: cough and shortness of breath Treatments prior to arrival: none Related Data Home Medications Medication Instructions Recorded Confirmed apixaban 5 mg tablet 5 mg PO BID 03/18/20 08/19/20 methadone 5 mg/5 mL oral solution 65 mg PO DAILY ml 03/18/20 08/19/20 metoprolol succinate 25 mg 25 mg PO DAILY 06/29/20 08/19/20 tablet,extended release 24 hr fluoxetine 10 mg capsule 10 mg PO DAILY 07/16/20 08/19/20 umeclidinium 62.5 mcg/actuation 1 inh INHALATION DAILY 07/16/20 08/19/20 blister powder for inhalation albuterol sulfate 2 puff PO Q4H PRN 08/19/20 08/19/20 Previous Rx's Medication Instructions Recorded furosemide 20 mg PO DAILY #30 tab 08/01/20 amoxicillin-pot clavulanate 1 tab PO BID #14 tab 09/01/20 [Augmentin] furosemide [Lasix] 20 mg PO DAILY #7 tab 09/01/20 Allergies Allergy/AdvReac Type Severity Reaction Status Date / Time No Known Allergies Allergy Verified 08/24/20 18:36 [No Known Allergies*] Review of Systems Review of Systems: Constitutional: No Fever, No Chills Cardiovascular: No Chest Pain, + SOB, No Orthopnea, + Edema Respiratory: +Cough, + Sputum, No Wheezing, No dyspnea Gastrointestinal: No Nausea, No Vomiting, No Diarrhea, No abdominal Pain Musculoskeletal: No joint pain, No Myalgias Skin: No Skin Lesions, No rash Neuro: No Weakness, No Numbness, No Dizziness, No Headache Psych: No Anxiety/Panic, No Depression Heme/Lymph: No Bruising, No Lymphadenopathy PMFSH Past Medical History Attestation statement: The following information was validated with the patient. Medical History Congestive heart failure COPD (chronic obstructive pulmonary disease) Ex-smoker HOCM (hypertrophic obstructive cardiomyopathy) Paroxysmal atrial fibrillation WPW (Vakvv-Gohrwjrmx-Tshfn syndrome) Surgical History H/O cardiac radiofrequency ablation History of heart surgery (~07/02/18) S/P ventricular septal myectomy Family History Family History Father COPD (chronic obstructive pulmonary disease) Heart disease Mother Heart disease Paternal Grandmother No problems noted. Social History Social History Household Members: Significant Other Housing: Apartment Do you presently have visiting nurse or other home services: Yes ([facility] 1x week) Alcohol intake: former Patient Tobacco Use Status: Former Tobacco user Quit Date: 07/01/20 Cigarettes Per Day: 6 Substance Use Type: Heroin Advance Directives: No Advance Directives Information Provided: Yes Patient : No service: No Current occupational status: disabled Physical Exam Vital Signs: Vital Signs: Last Vital Signs Temp 98.2 F 09/01/20 18:20 Pulse 74 09/01/20 21:12 Resp 16 09/01/20 21:12 BP 119/67 09/01/20 21:12 Pulse Ox 97 09/01/20 21:12 Body Mass Index 18.3 Appearance: Alert. Oriented X3. No acute distress. Eyes: Pupils equal, round and reactive to light. ENT: Pharynx normal. Neck: Normal inspection. Neck supple. CVS: Normal heart rate and rhythm. Pulses normal. No chest wall tenderness, well healed sterontomy. Respiratory: No respiratory distress. Breath sounds with slight rales to LLL, no wheezes or rhonchi Abdomen: Soft and nontender. +BS x4 Skin: Skin warm and dry. Normal skin color. Normal skin turgor. No rashes. Extremities: 1+ lower extremity edema at the bilateral ankles only. Neuro: Oriented X 3. No motor deficit. No sensory deficit. Ambulating with steady gait Course Course Course Narrative: 54 y/o female with extensive cardiac history presenting with mild bilateral ankle edema and mild SOB. Her VS are normal and she appears well. Will get CXR and labs. Reevaluation(s) Reevaluation #1: CXR showing COPD with question of superimposed mild pulmonary vascular congestion. Question right lingular infiltrate. BNP elevated at 2629 most recently was 1783 and prior to that at the end of July it was 2942. She was ambulated around the ER and SpO2 remained 97%. She has very mild LE edema. Will plan to increase her PO lasix to 40 mg Qam and 20 mg qpm for 1 week and have her follow up with her animal doctor and PCP. Will also treat for possible PNA with coarse of Augmentin. Patient agrees with plan and is stable for d/c home and outpatient follow up. Medical Decision Making Lab Data Result diagrams: 09/01/20 19:51 09/01/20 19:51 Labs: Lab Results 09/01/20 09/01/20 09/01/20 Range/Units 19:51 19:51 19:51 WBC 8.2 (4.8-10.8) X10*3/uL RBC 5.02 (4.20-5.50) X10*6/uL Hgb 12.6 (12.0-16.0) g/dl Hct 40.6 (37-47) % MCV 80.9 (80-98) fL MCH 25.1 L (27.0-33.0) pg MCHC 31.0 (31.0-35.0) g/dl RDW 19.9 H (11.0-16.0) % Plt Count 161 (160-400) X10*3/uL MPV 12.0 (9.4-12.3) fL Immature Gran % (Auto) 0.2 (0.0-0.4) % Neut % (Auto) 68.6 (45-73) % Lymph % (Auto) 21.0 (20-40) % [place] % (Auto) 7.9 (2-11) % Eos % (Auto) 1.6 (0-4) % Baso % (Auto) 0.7 (0-2) % Lymph # (Auto) 1.7 (1.2-4.9) X10*3/uL [place] # (Auto) 0.7 (0.1-1.2) X10*3/uL Eos # (Auto) 0.1 (0.0-0.4) X10*3/uL Baso # (Auto) 0.1 (0.0-0.2) X10*3/uL Abs Immat Gran (auto) 0.02 (0.00-0.03) X10*3/uL Absolute Neuts (auto) 5.6 (2.0-8.3) X10*3/uL Absolute Nucleated RBC 0.000 (0.0-0.012) X10*3/uL Nucleated RBC % (auto) 0.0 (0.0-0.2) /100WBC Sodium 136 (135-145) mmol/L Potassium 4.3 (3.3-5.1) mmol/L Chloride 100 (96-108) mmol/L Carbon Dioxide 25 (22-29) mmol/L Anion Gap 15 (12-20) BUN 18 H (9-16) mg/dL Creatinine 0.94 (0.5-1.4) mg/dL Estim Creat Clear Calc 48.4 Estimated GFR > 60 Fasting Glucose 91 (60-99) mg/dL Calcium 9.4 (8.4-10.2) mg/dL B-Natriuretic Peptide 2629 H (<100) pg/mL Discharge Plan Discharge Clinical Impression: CHF exacerbation Qualifiers: Heart failure type: unspecified Qualified Code(s): I50.9 - Heart failure, unspecified Pneumonia Qualifiers: Pneumonia type: due to unspecified organism Laterality: right Lung location: middle lobe of lung Qualified Code(s): J18.9 - Pneumonia, unspecified organism Patient Disposition: Home, Self-Care Instructions: Heart Failure (ED), Pneumonia (ED) Additional Instructions: Take an extra 20 mg of lasix each morning. Take the prescribed antibiotic for possible pneumonia. Follow up with your doctor in 2 days. If you develop new or worsening symptoms call 911 or come back to the ER for further evaluation. Prescriptions: New amoxicillin-pot clavulanate [Augmentin] 875-125 mg tablet 1 tab PO BID Qty: 14 RF: 0 furosemide [Lasix] 20 mg tablet 20 mg PO DAILY Qty: 7 RF: 0 No Action albuterol sulfate 90 mcg/actuation HFA aerosol inhaler 2 puff PO Q4H PRN (Reason: Shortness Of Breath) RF: 0 furosemide 20 mg tablet 20 mg PO DAILY Qty: 30 RF: 0 apixaban 5 mg tablet 5 mg PO BID RF: 0 methadone 5 mg/5 mL solution 65 mg PO DAILY RF: 0 metoprolol succinate 25 mg tablet extended release 24 hr 25 mg PO DAILY RF: 0 umeclidinium 62.5 mcg/actuation blister with device 1 inh inhalation DAILY RF: 0 fluoxetine 10 mg capsule 10 mg PO DAILY RF: 0 Referrals: Ned Villalobos MD [Physician] - 2 days (acute on chronic CHF) Discharge Date/Time: 09/01/20 22:06
[2020-09-01 20:23] LABS: B Type Natriuretic Peptide 2629 pg/mL (<100)
[2020-09-01] MEDS: Amoxicillin/Potassium Clav 875 MG TABLET PO (20:32)
[2020-09-01] MEDS: Furosemide 20 MG TABLET PO (20:32)
[2020-09-01 20:33] VITALS: BP 119/67; PULSE 67; RESP 16; O2SAT 96
--- NOTE | 2020-09-01 20:33 | PC.NURSE ---
pt medicated as per emar. pt awaiting for dispo instructions.
[2020-09-01] MEDS: Acetaminophen 325 MG TABLET 975 MG PO (20:43)
[2020-09-01 21:12] VITALS: BP 119/67; PULSE 74; RESP 16; O2SAT 97
== END 2020-09-01 22:06 | disposition home or self-care (01) ==
PROVIDERS: Emergency Provider Emergency Medicine Emergency Medical Services; PCP Internal Medicine
DX: I50.9 Heart failure, unspecified (principal); J18.9 Pneumonia, unspecified organism; R60.0 Localized edema; R06.02 Shortness of breath; F11.20 Opioid dependence, uncomplicated; I48.0 Paroxysmal atrial fibrillation
CPT/HCPCS: 36415; 71046; 80048; 83880; 85025; 99283

== ENCOUNTER 2020-09-08 13:16 | Emergency (ER) | payer OTHER, SELFPAY ==
[2020-09-08 14:00] VITALS: BP 104/59; PULSE 70; RESP 18; TEMP 36.9; O2SAT 97; BMI 18.3
== END 2020-09-08 14:50 | disposition left against medical advice (07) ==
PROVIDERS: Emergency Provider Emergency Medicine; PCP Internal Medicine
DX: R42 Dizziness and giddiness (principal)
CPT/HCPCS: 99281; 99282

== ENCOUNTER 2020-09-15 12:49 | Emergency (ER) | payer OTHER, SELFPAY ==
--- NOTE | ~2020-09-15 | XR_ITS ---
EXAMINATION: XR CHEST CLINICAL INFORMATION: Shortness of breath COMPARISON: Chest 09/01/2020 TECHNIQUE: 2 views of the chest were obtained. FINDINGS: Lungs are hyperinflated suggestive of emphysema. There are increased interstitial markings both lungs similar to previous study from 09/01/2020. Heart size and pulmonary vascularity is normal. There is no pleural effusion. There are median sternotomy sutures and mediastinal ronal from previous intervention. No gross bony abnormality seen. XR/XR chest 2V IMPRESSION: Emphysema with diffuse bilateral prominent interstitial markings similar to previous study. Question chronic changes with superimposed edema or pneumonitis. No consolidation seen.
--- NOTE | 2020-09-15 12:56 | ECG_ITS ---
Test Reason : DYSPNEA Blood Pressure : / mmHG Vent. Rate : 063 BPM Atrial Rate : 366 BPM P-R Int : 000 ms QRS Dur : 148 ms QT Int : 484 ms P-R-T Axes : 100 -31 144 degrees QTc Int : 495 ms Atrial flutter with variable A-V block Left axis deviation Left bundle branch block Abnormal ECG When compared with ECG of 25-AUG-2020 15:01, Pre-excitation is not apparent on this study Referred By: Martha Antony Electronically Signed By:NIXON GOODWIN MD
[2020-09-15 12:57] VITALS: BP 102/78; BP 111/38; PULSE 70; PULSE 72; RESP 14; TEMP 36.1; O2SAT 96; O2SAT 98; BMI 18.3
--- NOTE | 2020-09-15 12:58 | ED.SOB ---
HPI - SOB/Dyspnea General Chief Complaint: Dyspnea <Martha Antony NP - Last Filed: 09/15/20 16:45> Stated Complaint: sob <Martha Antony NP - Last Filed: 09/15/20 16:45> Time Seen by Provider: 09/15/20 12:56 <Martha Antony NP - Last Filed: 09/15/20 16:45> Source: EMS <Martha Antony NP - Last Filed: 09/15/20 16:45> Mode of arrival: EMS <Martha Antony NP - Last Filed: 09/15/20 16:45> Limitations: no limitations <Martha Antony NP - Last Filed: 09/15/20 16:45> History of Present Illness HPI Narrative: 54 y/o female with history of hypertrophic cardiomyopathy s/p myomectomy, WPW, afib s/p ablation on Eliquis, COPD, CHF, 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 Patient tells me she was seen over the weekend at an urgent care. Her Lasix was increased from 40 mg to 60 mg for 3 days. Today she is back down to her 40 mg and feels like although her legs are less swollen that she is still having some shortness of breath. No cough, chest pain, fevers, chills. She has been compliant with all of her medications. <Martha Antony NP - Last Filed: 09/15/20 16:45> Related Data Home Medications: Home Medications Medication Instructions Recorded Confirmed apixaban 5 mg tablet 5 mg PO BID 03/18/20 08/19/20 methadone 5 mg/5 mL oral solution 65 mg PO DAILY ml 03/18/20 08/19/20 metoprolol succinate 25 mg 25 mg PO DAILY 06/29/20 08/19/20 tablet,extended release 24 hr fluoxetine 10 mg capsule 10 mg PO DAILY 07/16/20 08/19/20 umeclidinium 62.5 mcg/actuation 1 inh INHALATION DAILY 07/16/20 08/19/20 blister powder for inhalation albuterol sulfate 2 puff PO Q4H PRN 08/19/20 08/19/20 Previous Rx's Medication Instructions Recorded furosemide 20 mg PO DAILY #30 tab 08/01/20 amoxicillin-pot clavulanate 1 tab PO BID #14 tab 09/01/20 [Augmentin] furosemide [Lasix] 20 mg PO DAILY #7 tab 09/01/20 <BROOKLYNN Hays Last Filed: 09/15/20 16:45> Allergies/Adverse Reactions: Allergies Allergy/AdvReac Type Severity Reaction Status Date / Time No Known Allergies Allergy Verified 08/24/20 18:36 [No Known Allergies*] <BROOKLYNN Hays Last Filed: 09/15/20 16:45> Review of Systems Review of Systems: Yes all other systems are reviewed and are negative <BROOKLYNN Hays Last Filed: 09/15/20 16:45> Constitutional: Constitutional: Reports no additional constitutional complaints, Denies body ache(s), Denies chills, Denies fever(s), Denies headache(s) and Denies weakness <BROOKLYNN Hays Last Filed: 09/15/20 16:45> Eyes: Eyes: Reports no additional eye complaints and Denies change in vision <BROOKLYNN Hays Last Filed: 09/15/20 16:45> ENT: Reports system reviewed and no additional complaints, except as documented, Denies dizziness, Denies headache(s), Denies nasal congestion, Denies nasal discharge and Denies neck pain <BROOKLYNN Hays Last Filed: 09/15/20 16:45> Cardiovascular: Cardiovascular: Reports no additional cardiovascular complaints, Denies chest pain, Reports leg edema and Reports dyspnea <BROOKLYNN Hays Last Filed: 09/15/20 16:45> Respiratory: Respiratory: Reports no additional respiratory complaints, Denies cough and Reports dyspnea <Martha Antony NP - Last Filed: 09/15/20 16:45> Gastrointestinal: Gastrointestinal: Reports no additional gastrointestinal complaints, Denies abdominal pain, Denies diarrhea, Denies nausea and Denies vomiting <BROOKLYNN Hays Last Filed: 09/15/20 16:45> Genitourinary: Genitourinary: Reports no additional female genitourinary complaints and Denies urinary incontinence <Martha Antony NP - Last Filed: 09/15/20 16:45> Musculoskeletal: Musculoskeletal: Reports no additional musculoskeletal complaints, Denies back pain, Denies arthralgias, Denies joint swelling, Denies neck pain, Denies numbness and Denies tingling <Martha Antony NP - Last Filed: 09/15/20 16:45> Integumentary/Breasts: Skin/Breast: Reports system reviewed and no additional complaints, except as docu and Denies rash <Martha Antony NP - Last Filed: 09/15/20 16:45> Neurologic: Reports system reviewed and no additional complaints, except as documented, Denies Abnormal speech present, Denies dizziness, Denies headache(s), Denies numbness, Denies tingling and Denies weakness <Martha Antony NP - Last Filed: 09/15/20 16:45> PMFSH Past Medical History Attestation statement: The following information was validated with the patient. <Martha Antony NP - Last Filed: 09/15/20 16:45> Source: old records reviewed and nursing notes reviewed <Martha Antony NP - Last Filed: 09/15/20 16:45> Medical History: Medical History Congestive heart failure COPD (chronic obstructive pulmonary disease) Ex-smoker HOCM (hypertrophic obstructive cardiomyopathy) Paroxysmal atrial fibrillation WPW (Lssse-Egcbxywsi-Fdxmm syndrome) <Martha Antony NP - Last Filed: 09/15/20 16:45> Surgical History: Surgical History H/O cardiac radiofrequency ablation History of heart surgery (~07/02/18) S/P ventricular septal myectomy <Martha Antony NP - Last Filed: 09/15/20 16:45> Family History Family History: Family History Father COPD (chronic obstructive pulmonary disease) Heart disease Mother Heart disease Paternal Grandmother No problems noted. <Martha Antony NP - Last Filed: 09/15/20 16:45> Social History Social History: Social History Household Members: Significant Other Housing: Apartment Do you presently have visiting nurse or other home services: Yes ([facility] 1x week) Alcohol intake: former Patient Tobacco Use Status: Former Tobacco user Quit Date: 07/01/20 Cigarettes Per Day: 6 Substance Use Type: Heroin Advance Directives: Yes Advance Directives Information Provided: Yes Advance Directives on File: No service: No Current occupational status: disabled <Martha Antony NP - Last Filed: 09/15/20 16:45> Physical Exam Vital Signs: Vital Signs: Last Vital Signs Temp 98.0 F 09/15/20 13:40 Pulse 65 09/15/20 13:40 Resp 14 09/15/20 13:40 BP 112/63 09/15/20 13:40 Pulse Ox 98 09/15/20 13:40 Body Mass Index 18.3 <Martha Antony NP - Last Filed: 09/15/20 16:45> Vital Signs: Last Vital Signs Temp 98.0 F 09/15/20 13:40 Pulse 65 09/15/20 13:40 Resp 14 09/15/20 13:40 BP 112/63 09/15/20 13:40 Pulse Ox 98 09/15/20 13:40 Body Mass Index 18.3 <Greg Manning MD - Last Filed: 09/15/20 13:55> Const: General: cooperative, healthy appearing, comfortable and no acute distress <Martha Antony NP - Last Filed: 09/15/20 16:45> Orientation/consciousness: patient oriented x3 <Martha Antony NP - Last Filed: 09/15/20 16:45> Limitations: no limitations <Martha Antony NP - Last Filed: 09/15/20 16:45> HENMT: Head: Yes normal to inspection <Martha Antony NP - Last Filed: 09/15/20 16:45> Ears: hearing grossly normal bilaterally <Martha Antony FOREST ECOLOGY PROFESSOR - Last Filed: 09/15/20 16:45> General nose exam: Normal external nose present <Martha Antony NP - Last Filed: 09/15/20 16:45> Face and sinus: Yes normal facial exam <Martha Antony NP - Last Filed: 09/15/20 16:45> Mouth: Normal oral and palatal mucosa present <Martha Antony FOREST ECOLOGY PROFESSOR - Last Filed: 09/15/20 16:45> Throat: Yes posterior oropharynx normal <Martha Antony FOREST ECOLOGY PROFESSOR - Last Filed: 09/15/20 16:45> Eyes: General: appearance normal, both eyes and all related structures <Martha Antony FOREST ECOLOGY PROFESSOR - Last Filed: 09/15/20 16:45> Pupils: Equal, round and reactive pupils present <Martha Antony NP - Last Filed: 09/15/20 16:45> Neck: Neck: Yes normal visual inspection <Martha Antony FOREST ECOLOGY PROFESSOR - Last Filed: 09/15/20 16:45> Chest: Chest palpation & inspection: normal inspection of the chest <Martha Antony NP - Last Filed: 09/15/20 16:45> Resp: Effort & Inspection: normal respiratory effort <Martha Antony NP - Last Filed: 09/15/20 16:45> Auscultation: clear to auscultation bilaterally <Martha Antony FOREST ECOLOGY PROFESSOR - Last Filed: 09/15/20 16:45> Cardio: Rate: regular rate <Martha Antony FOREST ECOLOGY PROFESSOR - Last Filed: 09/15/20 16:45> Rhythm: regular rhythm <Martha Antony NP - Last Filed: 09/15/20 16:45> Peripheral pulses: Peripheral pulses 2+ throughout <Martha Antony FOREST ECOLOGY PROFESSOR - Last Filed: 09/15/20 16:45> GI: Inspection: Yes normal to inspection <Martha Antony NP - Last Filed: 09/15/20 16:45> Palpation (GI): Soft to palpation and nontender <Martha Antony NP - Last Filed: 09/15/20 16:45> Auscultation: normal bowel sounds <Martha Antony NP - Last Filed: 09/15/20 16:45> Back/Spine/Pelvis: Thoracic/Lumbar Spine: thoracic and lumbar spine normal to inspection <Martha Antony NP - Last Filed: 09/15/20 16:45> Skin: General skin exam: no rashes or lesions noted <Martha Antony NP - Last Filed: 09/15/20 16:45> Neuro: General: patient oriented x3, no focal motor deficits and normal sensation to monofilament <Martha Antony NP - Last Filed: 09/15/20 16:45> Cranial nerves: Yes Equal, round and reactive pupils present <Martha Antony NP - Last Filed: 09/15/20 16:45> Cognition (Neuro): normal cognition <Martah Antony NP - Last Filed: 09/15/20 16:45> Speech: No Abnormal speech present <Martha Antony NP - Last Filed: 09/15/20 16:45> Gait exam (Neuro): Normal gait present <Martha Antony NP - Last Filed: 09/15/20 16:45> Motor exam (neuro): 5/5 motor strength present throughout <Martha Antony NP - Last Filed: 09/15/20 16:45> Extrem: Other: 1 +pitting edema extending to ankles bilateraly. <Martha Antony NP - Last Filed: 09/15/20 16:45> General: Yes normal to inspection and Yes no calf tenderness <Martha Antony NP - Last Filed: 09/15/20 16:45> Course Course Course Narrative: 54 y/o female with extensive cardiac history presenting with mild bilateral ankle edema and mild SOB. Her VS are normal and she appears well. Will get CXR and labs. 1430-labs are at baseline for the patient. Her BNP is actually improved from previous. Troponin at baseline. EKG shows no ischemic changes. Chest x-ray shows bilateral interstitial markings similar to previous chest x-ray seen on September 01. No evidence for fluid overload or infectious process. Clinically patient appears well. She has no hypertension or hypoxia or tachypnea. Her lungs are clear. She does have some mild lower extremity swelling which she tells is actually improved after increasing her dose of Lasix for 3 days. At this point she can be discharged home to follow-up outpatient with cardiology provider. Reviewed worrisome signs and symptoms such as worsening shortness of breath, chest pain or fever and when to return to the emergency department. Comfortable plan for discharge home <Martha Antony NP - Last Filed: 09/15/20 16:45> Reevaluation(s) Reevaluation #1: I have discussed the case and management with the Z[facility]. patient well known at baseline EKG, BNP and physical. Will dc home <Greg Manning MD - Last Filed: 09/15/20 13:55> Time: 13:54 <Greg Manning MD - Last Filed: 09/15/20 13:55> MDM - SOB/Dyspnea Differential Diagnosis Differential diagnosis: Likely acute exacerbation of chronic obstructive airways disease, congestive heart failure and pneumonia <Martha Antony NP - Last Filed: 09/15/20 16:45> Medical Records Attestation: I reviewed the patient's medical records. <Martha Antony NP - Last Filed: 09/15/20 16:45> Lab Data Attestation: I reviewed the patient's lab results. <Martha Antony NP - Last Filed: 09/15/20 16:45> Result diagrams: : 09/15/20 13:05 09/15/20 13:05 <Martha Antony NP - Last Filed: 09/15/20 16:45> Labs: Lab Results 09/15/20 09/15/20 09/15/20 Range/Units 13:05 13:05 13:05 WBC 5.4 (4.8-10.8) X10*3/uL RBC 4.75 (4.20-5.50) X10*6/uL Hgb 11.9 L (12.0-16.0) g/dl Hct 38.1 (37-47) % MCV 80.2 (80-98) fL MCH 25.1 L (27.0-33.0) pg MCHC 31.2 (31.0-35.0) g/dl RDW 18.0 H (11.0-16.0) % Plt Count 148 L (160-400) X10*3/uL MPV Not Reportable Immature Gran % (Auto) 0.4 (0.0-0.4) % Neut % (Auto) 64.7 (45-73) % Lymph % (Auto) 22.6 (20-40) % Bureau % (Auto) 9.4 (2-11) % Eos % (Auto) 2.0 (0-4) % Baso % (Auto) 0.9 (0-2) % Lymph # (Auto) 1.2 (1.2-4.9) X10*3/uL Bureau # (Auto) 0.5 (0.1-1.2) X10*3/uL Eos # (Auto) 0.1 (0.0-0.4) X10*3/uL Baso # (Auto) 0.1 (0.0-0.2) X10*3/uL Abs Immat Gran (auto) 0.02 (0.00-0.03) X10*3/uL Absolute Neuts (auto) 3.5 (2.0-8.3) X10*3/uL Absolute Nucleated RBC 0.000 (0.0-0.012) X10*3/uL Nucleated RBC % (auto) 0.0 (0.0-0.2) /100WBC Sodium 136 (135-145) mmol/L Potassium 4.6 (3.3-5.1) mmol/L Chloride 106 (96-108) mmol/L Carbon Dioxide 23 (22-29) mmol/L Anion Gap 12 (12-20) BUN 12 (9-16) mg/dL Creatinine 0.80 (0.5-1.4) mg/dL Estim Creat Clear Calc 56.9 Estimated GFR > 60 Random Glucose 79 (60-115) mg/dL Calcium 9.2 (8.4-10.2) mg/dL Magnesium 2.0 (1.6-2.6) mg/dL Total Bilirubin 0.5 (0.0-1.0) mg/dL Direct Bilirubin 0.2 (0.0-0.5) mg/dL AST 21 (5-31) U/L ALT 12 (0-31) U/L Alkaline Phosphatase 140 H (39-117) U/L Troponin I High Sens 17.1 H* (<3.5-17.0) ng/L B-Natriuretic Peptide (<100) pg/mL Total Protein 6.7 (6.5-8.0) g/dL Albumin 3.6 (3.5-5.0) g/dL 09/15/20 Range/Units 13:05 WBC (4.8-10.8) X10*3/uL RBC (4.20-5.50) X10*6/uL Hgb (12.0-16.0) g/dl Hct (37-47) % MCV (80-98) fL MCH (27.0-33.0) pg MCHC (31.0-35.0) g/dl RDW (11.0-16.0) % Plt Count (160-400) X10*3/uL MPV Immature Gran % (Auto) (0.0-0.4) % Neut % (Auto) (45-73) % Lymph % (Auto) (20-40) % Bureau % (Auto) (2-11) % Eos % (Auto) (0-4) % Baso % (Auto) (0-2) % Lymph # (Auto) (1.2-4.9) X10*3/uL Bureau # (Auto) (0.1-1.2) X10*3/uL Eos # (Auto) (0.0-0.4) X10*3/uL Baso # (Auto) (0.0-0.2) X10*3/uL Abs Immat Gran (auto) (0.00-0.03) X10*3/uL Absolute Neuts (auto) (2.0-8.3) X10*3/uL Absolute Nucleated RBC (0.0-0.012) X10*3/uL Nucleated RBC % (auto) (0.0-0.2) /100WBC Sodium (135-145) mmol/L Potassium (3.3-5.1) mmol/L Chloride (96-108) mmol/L Carbon Dioxide (22-29) mmol/L Anion Gap (12-20) BUN (9-16) mg/dL Creatinine (0.5-1.4) mg/dL Estim Creat Clear Calc Estimated GFR Random Glucose (60-115) mg/dL Calcium (8.4-10.2) mg/dL Magnesium (1.6-2.6) mg/dL Total Bilirubin (0.0-1.0) mg/dL Direct Bilirubin (0.0-0.5) mg/dL AST (5-31) U/L ALT (0-31) U/L Alkaline Phosphatase (39-117) U/L Troponin I High Sens (<3.5-17.0) ng/L B-Natriuretic Peptide 2211 H (<100) pg/mL Total Protein (6.5-8.0) g/dL Albumin (3.5-5.0) g/dL <Martha Antony, FOREST ECOLOGY PROFESSOR - Last Filed: 09/15/20 16:45> Lab Results 09/15/20 09/15/20 09/15/20 Range/Units 13:05 13:05 13:05 WBC 5.4 (4.8-10.8) X10*3/uL RBC 4.75 (4.20-5.50) X10*6/uL Hgb 11.9 L (12.0-16.0) g/dl Hct 38.1 (37-47) % MCV 80.2 (80-98) fL MCH 25.1 L (27.0-33.0) pg MCHC 31.2 (31.0-35.0) g/dl RDW 18.0 H (11.0-16.0) % Plt Count 148 L (160-400) X10*3/uL MPV Not Reportable Immature Gran % (Auto) 0.4 (0.0-0.4) % Neut % (Auto) 64.7 (45-73) % Lymph % (Auto) 22.6 (20-40) % Bureau % (Auto) 9.4 (2-11) % Eos % (Auto) 2.0 (0-4) % Baso % (Auto) 0.9 (0-2) % Lymph # (Auto) 1.2 (1.2-4.9) X10*3/uL Bureau # (Auto) 0.5 (0.1-1.2) X10*3/uL Eos # (Auto) 0.1 (0.0-0.4) X10*3/uL Baso # (Auto) 0.1 (0.0-0.2) X10*3/uL Abs Immat Gran (auto) 0.02 (0.00-0.03) X10*3/uL Absolute Neuts (auto) 3.5 (2.0-8.3) X10*3/uL Absolute Nucleated RBC 0.000 (0.0-0.012) X10*3/uL Nucleated RBC % (auto) 0.0 (0.0-0.2) /100WBC Sodium 136 (135-145) mmol/L Potassium 4.6 (3.3-5.1) mmol/L Chloride 106 (96-108) mmol/L Carbon Dioxide 23 (22-29) mmol/L Anion Gap 12 (12-20) BUN 12 (9-16) mg/dL Creatinine 0.80 (0.5-1.4) mg/dL Estim Creat Clear Calc 56.9 Estimated GFR > 60 Random Glucose 79 (60-115) mg/dL Calcium 9.2 (8.4-10.2) mg/dL Magnesium 2.0 (1.6-2.6) mg/dL Total Bilirubin 0.5 (0.0-1.0) mg/dL Direct Bilirubin 0.2 (0.0-0.5) mg/dL AST 21 (5-31) U/L ALT 12 (0-31) U/L Alkaline Phosphatase 140 H (39-117) U/L Troponin I High Sens 17.1 H* (<3.5-17.0) ng/L B-Natriuretic Peptide (<100) pg/mL Total Protein 6.7 (6.5-8.0) g/dL Albumin 3.6 (3.5-5.0) g/dL 09/15/20 Range/Units 13:05 WBC (4.8-10.8) X10*3/uL RBC (4.20-5.50) X10*6/uL Hgb (12.0-16.0) g/dl Hct (37-47) % MCV (80-98) fL MCH (27.0-33.0) pg MCHC (31.0-35.0) g/dl RDW (11.0-16.0) % Plt Count (160-400) X10*3/uL MPV Immature Gran % (Auto) (0.0-0.4) % Neut % (Auto) (45-73) % Lymph % (Auto) (20-40) % Bureau % (Auto) (2-11) % Eos % (Auto) (0-4) % Baso % (Auto) (0-2) % Lymph # (Auto) (1.2-4.9) X10*3/uL Bureau # (Auto) (0.1-1.2) X10*3/uL Eos # (Auto) (0.0-0.4) X10*3/uL Baso # (Auto) (0.0-0.2) X10*3/uL Abs Immat Gran (auto) (0.00-0.03) X10*3/uL Absolute Neuts (auto) (2.0-8.3) X10*3/uL Absolute Nucleated RBC (0.0-0.012) X10*3/uL Nucleated RBC % (auto) (0.0-0.2) /100WBC Sodium (135-145) mmol/L Potassium (3.3-5.1) mmol/L Chloride (96-108) mmol/L Carbon Dioxide (22-29) mmol/L Anion Gap (12-20) BUN (9-16) mg/dL Creatinine (0.5-1.4) mg/dL Estim Creat Clear Calc Estimated GFR Random Glucose (60-115) mg/dL Calcium (8.4-10.2) mg/dL Magnesium (1.6-2.6) mg/dL Total Bilirubin (0.0-1.0) mg/dL Direct Bilirubin (0.0-0.5) mg/dL AST (5-31) U/L ALT (0-31) U/L Alkaline Phosphatase (39-117) U/L Troponin I High Sens (<3.5-17.0) ng/L B-Natriuretic Peptide 2211 H (<100) pg/mL Total Protein (6.5-8.0) g/dL Albumin (3.5-5.0) g/dL <Greg Manning MD - Last Filed: 09/15/20 13:55> Imaging Data Chest x-ray: Attestation: I personally reviewed and interpreted this imaging study as follows: <Martha Antony NP - Last Filed: 09/15/20 16:45> Radiologist's impression: MPRESSION: Emphysema with diffuse bilateral prominent interstitial markings similar to previous study. Question chronic changes with superimposed edema or pneumonitis. No consolidation seen. <Martha Antony NP - Last Filed: 09/15/20 16:45> ECG Data Attestation: I personally reviewed and interpreted this ECG as follows: <Martha Antony NP - Last Filed: 09/15/20 16:45> ECG interpretation date: 09/15/20 <Martha Antony NP - Last Filed: 09/15/20 16:45> ECG interpretation time: 13:40 <Martha Antony NP - Last Filed: 09/15/20 16:45> Interpretation: A flutter with a rate of 63, normal QRS, normal QT left bundle branch block unchanged from previous <Martha Antony NP - Last Filed: 09/15/20 16:45> Discharge Plan Discharge Clinical Impression: Congestive heart failure <Martha Antony NP - Last Filed: 09/15/20 16:45> Patient Disposition: Home, Self-Care <Martha Antony NP - Last Filed: 09/15/20 16:45> Instructions: Heart Failure (ED) <Martha Antony NP - Last Filed: 09/15/20 16:45> Additional Instructions: Continue your Lasix Follow-up with market development analyst <Martha Antony NP - Last Filed: 09/15/20 16:45> Prescriptions: No Action albuterol sulfate 90 mcg/actuation HFA aerosol inhaler 2 puff PO Q4H PRN (Reason: Shortness Of Breath) RF: 0 amoxicillin-pot clavulanate [Augmentin] 875-125 mg tablet 1 tab PO BID Qty: 14 RF: 0 furosemide [Lasix] 20 mg tablet 20 mg PO DAILY Qty: 7 RF: 0 furosemide 20 mg tablet 20 mg PO DAILY Qty: 30 RF: 0 apixaban 5 mg tablet 5 mg PO BID RF: 0 methadone 5 mg/5 mL solution 65 mg PO DAILY RF: 0 metoprolol succinate 25 mg tablet extended release 24 hr 25 mg PO DAILY RF: 0 umeclidinium 62.5 mcg/actuation blister with device 1 inh inhalation DAILY RF: 0 fluoxetine 10 mg capsule 10 mg PO DAILY RF: 0 <Martha Antony NP - Last Filed: 09/15/20 16:45> Referrals: Jose Roberto Weiss MD [Primary Care Provider] - 2 days <Martha Antony NP - Last Filed: 09/15/20 16:45> Interventions: ED Discharge Assessment Last Done: 09/15/20 15:59 <Martha Antony NP - Last Filed: 09/15/20 16:45> Discharge Date/Time: 09/15/20 14:55 <Martha Antony NP - Last Filed: 09/15/20 16:45>
[2020-09-15 13:16] LABS: Imm Gran Abs Auto 0.02 X10*3/uL (0.00-0.03); Imm Gran Pct Auto 0.4 % (0.0-0.4)
[2020-09-15 13:18] LABS: Basophils Absolute Auto 0.1 X10*3/uL (0.0-0.2); Basophils Percent Auto 0.9 % (0-2); Eosinophils Absolute Auto 0.1 X10*3/uL (0.0-0.4); Hematocrit 38.1 % (37-47); Hemoglobin 11.9 g/dl (12.0-16.0); Lymphocytes Absolute Auto 1.2 X10*3/uL (1.2-4.9); Lymphocytes Percent Auto 22.6 % (20-40); Mean Corpuscular HGB Conc 31.2 g/dl (31.0-35.0); Mean Corpuscular Hemoglobin 25.1 pg (27.0-33.0); Mean Corpuscular Volume 80.2 fL (80-98); Monocytes Absolute Auto 0.5 X10*3/uL (0.1-1.2); Monocytes Percent Auto 9.4 % (2-11); Neutrophils Absolute Auto 3.5 X10*3/uL (2.0-8.3); Neutrophils Percent Auto 64.7 % (45-73); Platelet Count 148 X10*3/uL (160-400); Red Blood Count 4.75 X10*6/uL (4.20-5.50); White Blood Count 5.4 X10*3/uL (4.8-10.8)
[2020-09-15 13:21] LABS: PLT ABN DIST 1
[2020-09-15 13:24] LABS: MANUAL DIFF FLAG NO
[2020-09-15 13:35] LABS: Alanine Aminotransferase 12 U/L (0-31); Albumin Level 3.6 g/dL (3.5-5.0); Alkaline Phosphatase 140 U/L (39-117); Anion Gap 12 (12-20); Aspartate Amino Transferase 21 U/L (5-31); Bilirubin Direct 0.2 mg/dL (0.0-0.5); Bilirubin Total 0.5 mg/dL (0.0-1.0); Blood Urea Nitrogen 12 mg/dL (9-16); Calcium 9.2 mg/dL (8.4-10.2); Carbon Dioxide 23 mmol/L (22-29); Chloride 106 mmol/L (96-108); Creatinine Clr Calc Pharmacy 56.9; Estimated Glomerular Filt Rate > 60; Glucose Random 79 mg/dL (60-115); Potassium 4.6 mmol/L (3.3-5.1); Sodium 136 mmol/L (135-145); Total Protein 6.7 g/dL (6.5-8.0)
[2020-09-15 13:40] VITALS: BP 112/63; PULSE 65; RESP 14; TEMP 36.7; O2SAT 98
[2020-09-15 13:40] LABS: B Type Natriuretic Peptide 2211 pg/mL (<100)
[2020-09-15 13:42] LABS: Troponin-I High Sensitivity 17.1 ng/L (<3.5-17.0)
== END 2020-09-15 14:55 | disposition home or self-care (01) ==
PROVIDERS: Nurse Practitioner Family; Emergency Provider Emergency Medicine; PCP Internal Medicine
DX: I50.9 Heart failure, unspecified (principal); I48.0 Paroxysmal atrial fibrillation; J44.9 Chronic obstructive pulmonary disease, unspecified; I27.20 Pulmonary hypertension, unspecified; F11.20 Opioid dependence, uncomplicated; Z79.01 Long term (current) use of anticoagulants; Z79.899 Other long term (current) drug therapy
CPT/HCPCS: 36415; 71046; 80048; 80076; 83735; 83880; 84484; 85025; 93005; 99284

== ENCOUNTER 2021-01-27 11:07 | Inpatient (IN) | payer OTHER, SELFPAY ==
--- NOTE | ~2021-01-27 | XR_ITS ---
EXAMINATION: XR CHEST CLINICAL INFORMATION: Shortness of breath COMPARISON: Chest radiographs 09/15/2020, 09/01/2020; CTA chest 08/14/2020. TECHNIQUE: Portable upright AP view of the chest was obtained. FINDINGS: There are chronic appearing changes similar to prior chest 09/15/2020 with enlarged cardiopericardial silhouette, enlarged pulmonary arteries, and increased interstitial markings. Possibility of superimposed interstitial edema cannot be excluded. There is no lobar or segmental airspace consolidation or effusion. There is been prior median sternotomy. XR/XR chest 1V IMPRESSION: 1. Cardiomegaly with enlarged pulmonary arteries and increased interstitial markings similar to prior exam 09/15/2020. Possibility of superimposed interstitial edema cannot be excluded. 2. No lobar or segmental airspace consolidation or effusion.
[2021-01-27 11:16] VITALS: BP 124/76; BP 135/66; PULSE 74; PULSE 75; RESP 18; TEMP 36.5; O2SAT 95; O2SAT 98; BMI 18.6
--- NOTE | 2021-01-27 11:33 | ECG_ITS ---
Test Reason : SOB Blood Pressure : / mmHG Vent. Rate : 070 BPM Atrial Rate : 000 BPM P-R Int : 000 ms QRS Dur : 138 ms QT Int : 440 ms P-R-T Axes : 000 -21 141 degrees QTc Int : 475 ms Atrial fibrillation with premature ventricular or aberrantly conducted complexes Left bundle branch block Abnormal ECG When compared with ECG of 15-SEP-2020 13:40, Atrial fibrillation has replaced Atrial flutter Referred By: Generic ED Physician Electronically Signed By:JORY LOCO
--- NOTE | 2021-01-27 11:45 | ED.SOB ---
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 , patient describes shortness of breath at rest, and when she is in supine position, but worsening with exertion, no chest pain associated with the shortness of breath, described it as intermittent patient currently has no symptoms of shortness of breath or coughing, patient declined fever or chills. Related Data Home Medications Medication Instructions Recorded Confirmed apixaban 5 mg tablet 5 mg PO BID 03/18/20 01/27/21 metoprolol succinate 25 mg 25 mg PO DAILY 06/29/20 01/27/21 tablet,extended release 24 hr umeclidinium 62.5 mcg/actuation 1 inh INHALATION DAILY PRN 07/16/20 01/27/21 blister powder for inhalation albuterol sulfate 90 mcg/actuation 2 puff PO Q4H PRN 08/19/20 01/27/21 aerosol inhaler furosemide 20 mg tablet 40 mg PO BID 01/27/21 01/27/21 Allergies Allergy/AdvReac Type Severity Reaction Status Date / Time No Known Allergies Allergy Verified 08/24/20 18:36 [No Known Allergies*] Review of Systems Review of Systems: All other systems are reviewed and are negative Constitutional: Reports as per HPI and Reports no additional constitutional complaints Eyes: Reports as per HPI and Reports no additional eye complaints Reports system reviewed and no additional complaints, except as documented Cardiovascular: Reports as per HPI and Reports no additional cardiovascular complaints Respiratory: Reports as per HPI and Reports no additional respiratory complaints Gastrointestinal: Reports as per HPI and Reports no additional gastrointestinal complaints Genitourinary: Reports no additional female genitourinary complaints Musculoskeletal: Reports no additional musculoskeletal complaints Skin/Breast: Reports system reviewed and no additional complaints, except as docu Psychiatric: Reports no additional psychiatric complaints Endocrine: Reports no additional endocrine complaints Hematologic/Lymphatic: Reports no additional hematologic/lymphatic complaints Allergic/Immunologic: Reports no additional allergic/immunologic complaints Reports system reviewed and no additional complaints, except as documented and Reports Abnormal speech present [facility] Past Medical History Medical History Congestive heart failure COPD (chronic obstructive pulmonary disease) Ex-smoker HOCM (hypertrophic obstructive cardiomyopathy) Paroxysmal atrial fibrillation WPW (Tzwgk-Wijkdtvoh-Spoum syndrome) Surgical History H/O cardiac radiofrequency ablation History of heart surgery (~07/02/18) S/P ventricular septal myectomy Family History Family History Father COPD (chronic obstructive pulmonary disease) Heart disease Mother Heart disease Paternal Grandmother No problems noted. Social History Social History Household Members: Significant Other Housing: Apartment Do you presently have visiting nurse or other home services: Yes ([facility] 1x week) Alcohol intake: never Patient Tobacco Use Status: Current everyday Tobacco user Cigarettes Per Day: 6 Smoked in Last 30 Days: Yes Use of substances other than those prescribed or required for medical reasons: Yes Substance Use Type: Heroin Substance Use Frequency: Daily Any prior treatment program specific to substance use: Yes Advance Directives: No Advance Directives Information Provided: No service: No Current occupational status: disabled Physical Exam Vital Signs: Vital Signs: Last Vital Signs Temp 97.7 F 01/27/21 11:16 Pulse 72 01/27/21 13:45 Resp 20 01/27/21 13:45 BP 112/63 01/27/21 13:45 Pulse Ox 98 01/27/21 13:45 BMI result Body Mass Index 18.6 vital signs have been reviewed as appeared to be correct. Blood pressure normal. Heart rate normal. Respiration rate normal. Temperature normal. Oxygen saturation normal. Appearance: Alert. Oriented X3. No acute distress. Head: Normal external exam. Normocephalic. Atraumatic. No Fletcher signs noted. No raccoon eyes noted Eyes: PERRLA. EOMI. Conjunctiva and sclera normal. Eyelids normal. ENT: TM's Normal. Pharynx normal. Uvula midline. Moist mucous membranes. No trismus noted. No drooling noted. No muffled voice noted. Neck: Normal inspection. Neck supple. FROM. No adenopathy. Thyroid Normal. No meningeal signs. No neck mass noted. CVS: Normal heart rate and rhythm. Heart sound normal. No murmurs noted. Pulses normal throughout. Respiratory: No respiratory distress. Painless inspiration. Breath sounds normal. Bilateral basilar rales noted. Chest nontender. No accessory muscle usage noted or decreased air movement noted. Abdomen: Soft and nontender. Bowel sounds normal in all 4 quadrants. No distention noted. No organomegaly noted. No visible injury noted. Back: No CVA tenderness. Full range of motion noted. Skin: Skin warm and dry. Normal skin color. Normal skin turgor. No rashes/lesions/lacerations noted. Extremities:+2 lower extremity edema. Extremities exhibit normal range of motion. Extremities nontender. Neuro: Oriented X 3. Cranial nerve exam: II-XII are grossly intact No motor deficit. No sensory deficit. Reflexes normal. Course Course Course Narrative: assessment and plan. 55-year-old female presented with shortness of breath physical exam, chest x-ray, and labs are consistent with CHF exacerbation, patient be admitted for further diuresis. MDM - SOB/Dyspnea Medical Records Attestation: I reviewed the patient's medical records. Lab Data Attestation: I reviewed the patient's lab results. Result diagrams: 01/27/21 12:24 01/27/21 12:24 Labs: Lab Results 01/27/21 01/27/21 01/27/21 Range/Units 12:03 12:06 12:24 WBC 7.2 (4.8-10.8) X10*3/uL RBC 6.21 H (4.20-5.50) X10*6/uL Hgb 14.1 (12.0-16.0) g/dl Hct 47.6 H (37.0-47.0) % MCV 76.7 L (80.0-98.0) fL MCH 22.7 L (27.0-33.0) pg MCHC 29.6 L (31.0-35.0) g/dl RDW 21.8 H (11.0-16.0) % Plt Count 200 (160-400) X10*3/uL MPV Not Reportable Immature Gran % (Auto) 0.4 (0.0-0.4) % Neut % (Auto) 60.6 (45-73) % Lymph % (Auto) 26.5 (20-40) % [place] % (Auto) 9.3 (2-11) % Eos % (Auto) 2.2 (0-4) % Baso % (Auto) 1.0 (0-2) % Lymph # (Auto) 1.9 (1.2-4.9) X10*3/uL [place] # (Auto) 0.7 (0.1-1.2) X10*3/uL Eos # (Auto) 0.2 (0.0-0.4) X10*3/uL Baso # (Auto) 0.1 (0.0-0.2) X10*3/uL Abs Immat Gran (auto) 0.03 (0.00-0.03) X10*3/uL Absolute Neuts (auto) 4.4 (2.0-8.3) x10*3/uL Absolute Nucleated RBC 0.000 (0.0-0.012) X10*3/uL Nucleated RBC % (auto) 0.0 (0.0-0.2) /100WBC Smear Tech's Comments VERIFIED PT (9.9-13.0) SEC INR (0.9-1.1) APTT (24.1-38.0) SEC Sodium (135-145) mmol/L Potassium (3.3-5.1) mmol/L Chloride (96-108) mmol/L Carbon Dioxide (22-29) mmol/L Anion Gap (12-20) BUN (9-16) mg/dL Creatinine (0.5-1.4) mg/dL Estim Creat Clear Calc Estimated GFR Random Glucose (60-115) mg/dL Calcium (8.4-10.2) mg/dL Total Bilirubin (0.0-1.0) mg/dL Direct Bilirubin (0.0-0.5) mg/dL AST (5-31) U/L ALT (0-31) U/L Alkaline Phosphatase (39-117) U/L Troponin I High Sens (<3.5-17.0) ng/L B-Natriuretic Peptide (<100) pg/mL Total Protein (6.5-8.0) g/dL Albumin (3.5-5.0) g/dL Lipase (8-78) U/L Urine Color YELLOW Urine Appearance CLEAR Urine pH 6.0 (5.0-8.0) Ur Specific [place] <= 1.005 (1.005-1.025) Urine Protein NEG (NEG-TRACE) MG/DL Urine Glucose (UA) NEG (NEG) MG/DL Urine Ketones NEG (NEG) MG/DL Urine Blood TRACE (NEG) Urine Nitrite NEG (NEG) Ur Leukocyte Esterase NEG (NEG) Urine RBC 0 (0) /HPF Urine WBC 0-2 (0-4) /HPF Ur Squamous Epith Cells 1+ /LPF Urine Bacteria NONE /LPF Influenza Type A (PCR) NEGATIVE (Negative) Influenza Type B (PCR) NEGATIVE (Negative) RSV RNA Qual (PCR) NEGATIVE (Negative) SARS-CoV-2 RNA (RT-PCR) NEGATIVE (Negative) 01/27/21 01/27/21 01/27/21 Range/Units 12:24 12:24 12:24 WBC (4.8-10.8) X10*3/uL RBC (4.20-5.50) X10*6/uL Hgb (12.0-16.0) g/dl Hct (37.0-47.0) % MCV (80.0-98.0) fL MCH (27.0-33.0) pg MCHC (31.0-35.0) g/dl RDW (11.0-16.0) % Plt Count (160-400) X10*3/uL MPV Immature Gran % (Auto) (0.0-0.4) % Neut % (Auto) (45-73) % Lymph % (Auto) (20-40) % [place] % (Auto) (2-11) % Eos % (Auto) (0-4) % Baso % (Auto) (0-2) % Lymph # (Auto) (1.2-4.9) X10*3/uL [place] # (Auto) (0.1-1.2) X10*3/uL Eos # (Auto) (0.0-0.4) X10*3/uL Baso # (Auto) (0.0-0.2) X10*3/uL Abs Immat Gran (auto) (0.00-0.03) X10*3/uL Absolute Neuts (auto) (2.0-8.3) x10*3/uL Absolute Nucleated RBC (0.0-0.012) X10*3/uL Nucleated RBC % (auto) (0.0-0.2) /100WBC Smear Tech's Comments PT 20.0 H (9.9-13.0) SEC INR 1.7 H (0.9-1.1) APTT 42.6 H (24.1-38.0) SEC Sodium 135 (135-145) mmol/L Potassium 4.7 (3.3-5.1) mmol/L Chloride 101 (96-108) mmol/L Carbon Dioxide 26 (22-29) mmol/L Anion Gap 13 (12-20) BUN 9 (9-16) mg/dL Creatinine 0.80 (0.5-1.4) mg/dL Estim Creat Clear Calc 57.3 Estimated GFR > 60 Random Glucose 94 (60-115) mg/dL Calcium 10.1 D (8.4-10.2) mg/dL Total Bilirubin 0.6 (0.0-1.0) mg/dL Direct Bilirubin 0.3 (0.0-0.5) mg/dL AST 21 (5-31) U/L ALT 8 (0-31) U/L Alkaline Phosphatase 184 H D (39-117) U/L Troponin I High Sens 31.4 H (<3.5-17.0) ng/L B-Natriuretic Peptide (<100) pg/mL Total Protein 8.6 H D (6.5-8.0) g/dL Albumin 4.1 (3.5-5.0) g/dL Lipase 17 (8-78) U/L Urine Color Urine Appearance Urine pH (5.0-8.0) Ur Specific [place] (1.005-1.025) Urine Protein (NEG-TRACE) MG/DL Urine Glucose (UA) (NEG) MG/DL Urine Ketones (NEG) MG/DL Urine Blood (NEG) Urine Nitrite (NEG) Ur Leukocyte Esterase (NEG) Urine RBC (0) /HPF Urine WBC (0-4) /HPF Ur Squamous Epith Cells /LPF Urine Bacteria /LPF Influenza Type A (PCR) (Negative) Influenza Type B (PCR) (Negative) RSV RNA Qual (PCR) (Negative) SARS-CoV-2 RNA (RT-PCR) (Negative) 01/27/21 Range/Units 12:24 WBC (4.8-10.8) X10*3/uL RBC (4.20-5.50) X10*6/uL Hgb (12.0-16.0) g/dl Hct (37.0-47.0) % MCV (80.0-98.0) fL MCH (27.0-33.0) pg MCHC (31.0-35.0) g/dl RDW (11.0-16.0) % Plt Count (160-400) X10*3/uL MPV Immature Gran % (Auto) (0.0-0.4) % Neut % (Auto) (45-73) % Lymph % (Auto) (20-40) % [place] % (Auto) (2-11) % Eos % (Auto) (0-4) % Baso % (Auto) (0-2) % Lymph # (Auto) (1.2-4.9) X10*3/uL [place] # (Auto) (0.1-1.2) X10*3/uL Eos # (Auto) (0.0-0.4) X10*3/uL Baso # (Auto) (0.0-0.2) X10*3/uL Abs Immat Gran (auto) (0.00-0.03) X10*3/uL Absolute Neuts (auto) (2.0-8.3) x10*3/uL Absolute Nucleated RBC (0.0-0.012) X10*3/uL Nucleated RBC % (auto) (0.0-0.2) /100WBC Smear Tech's Comments PT (9.9-13.0) SEC INR (0.9-1.1) APTT (24.1-38.0) SEC Sodium (135-145) mmol/L Potassium (3.3-5.1) mmol/L Chloride (96-108) mmol/L Carbon Dioxide (22-29) mmol/L Anion Gap (12-20) BUN (9-16) mg/dL Creatinine (0.5-1.4) mg/dL Estim Creat Clear Calc Estimated GFR Random Glucose (60-115) mg/dL Calcium (8.4-10.2) mg/dL Total Bilirubin (0.0-1.0) mg/dL Direct Bilirubin (0.0-0.5) mg/dL AST (5-31) U/L ALT (0-31) U/L Alkaline Phosphatase (39-117) U/L Troponin I High Sens (<3.5-17.0) ng/L B-Natriuretic Peptide 2102 H (<100) pg/mL Total Protein (6.5-8.0) g/dL Albumin (3.5-5.0) g/dL Lipase (8-78) U/L Urine Color Urine Appearance Urine pH (5.0-8.0) Ur Specific [place] (1.005-1.025) Urine Protein (NEG-TRACE) MG/DL Urine Glucose (UA) (NEG) MG/DL Urine Ketones (NEG) MG/DL Urine Blood (NEG) Urine Nitrite (NEG) Ur Leukocyte Esterase (NEG) Urine RBC (0) /HPF Urine WBC (0-4) /HPF Ur Squamous Epith Cells /LPF Urine Bacteria /LPF Influenza Type A (PCR) (Negative) Influenza Type B (PCR) (Negative) RSV RNA Qual (PCR) (Negative) SARS-CoV-2 RNA (RT-PCR) (Negative) Imaging Data Chest x-ray: Radiologist's impression: 1. Cardiomegaly with enlarged pulmonary arteries and increased interstitial markings similar to prior exam 09/15/2020. Possibility of superimposed interstitial edema cannot be excluded. ? 2. No lobar or segmental airspace consolidation or effusion. ? Discharge Plan Discharge Clinical Impression: Congestive heart failure Patient Disposition: Admitted As Inpatient Prescriptions: No Action albuterol sulfate 90 mcg/actuation HFA aerosol inhaler 2 puff PO Q4H PRN (Reason: Shortness Of Breath) RF: 0 furosemide 20 mg tablet 40 mg PO BID RF: 0 apixaban 5 mg tablet 5 mg PO BID RF: 0 metoprolol succinate 25 mg tablet extended release 24 hr 25 mg PO DAILY RF: 0 umeclidinium 62.5 mcg/actuation blister with device 1 inh inhalation DAILY PRN (Reason: sob) RF: 0
[2021-01-27 11:57] VITALS: BP 102/63; PULSE 67
[2021-01-27 12:00] VITALS: BP 94/64; PULSE 81
[2021-01-27 12:25] LABS: Appearance Urine CLEAR; Color Urine YELLOW; Glucose Urine UA NEG (NEG); Leukocyte Esterase Urine NEG (NEG); Nitrite Urine NEG (NEG); Specific Gravity - Urine <= 1.005 (1.005-1.025); UACC Culture Trigger NO; Urine Blood TRACE (NEG); Urine Ketones NEG (NEG); Urine Protein NEG (NEG-TRACE)
[2021-01-27 12:32] LABS: Basophils Absolute Auto 0.1 X10*3/uL (0.0-0.2); MANUAL DIFF FLAG SCAN; Monocytes Percent Auto 9.3 % (2-11); Platelet Count 200 X10*3/uL (160-400); SCAN SMEAR FLAG 1
[2021-01-27 12:33] LABS: Eosinophils Absolute Auto 0.2 X10*3/uL (0.0-0.4); Eosinophils Percent Auto 2.2 % (0-4); Hematocrit 47.6 % (37.0-47.0); Hemoglobin 14.1 g/dl (12.0-16.0); Imm Gran Abs Auto 0.03 X10*3/uL (0.00-0.03); Imm Gran Pct Auto 0.4 % (0.0-0.4); Lymphocytes Absolute Auto 1.9 X10*3/uL (1.2-4.9); Lymphocytes Percent Auto 26.5 % (20-40); Mean Corpuscular HGB Conc 29.6 g/dl (31.0-35.0); Mean Corpuscular Hemoglobin 22.7 pg (27.0-33.0); Mean Corpuscular Volume 76.7 fL (80.0-98.0); Monocytes Absolute Auto 0.7 X10*3/uL (0.1-1.2); Neutrophils Absolute Auto 4.4 x10*3/uL (2.0-8.3); Neutrophils Percent Auto 60.6 % (45-73); Red Blood Count 6.21 X10*6/uL (4.20-5.50); Red Cell Distribution Width 21.8 % (11.0-16.0); White Blood Count 7.2 X10*3/uL (4.8-10.8)
[2021-01-27 12:34] LABS: PLT ABN DIST 1
[2021-01-27 12:39] LABS: INTERNATIONAL NORM RATIO 1.7 (0.9-1.1)
--- NOTE | 2021-01-27 12:39 | PHA.MEDREC ---
Pharmacy Consult ? Medication Reconciliation Pharmacy has completed the medication reconciliation. Patient reports she no longer takes the fluoxetine since she does not have anxiety. She does not use her Incruse inhaler every day, but she does have it. She use her alberulol more often. Marta Harden, PharmD
[2021-01-27 12:41] LABS: RBC Urine 0 /HPF (0); WBC Urine 0-2 /HPF (0-4)
[2021-01-27 12:41] LABS: Partial Thromboplastin Time 42.6 SEC (24.1-38.0)
[2021-01-27 12:42] LABS: Squamous Epithelial Cell Urine 1+ /LPF
[2021-01-27 12:55] LABS: SLIDE REVIEW VERIFIED
[2021-01-27 12:58] LABS: B Type Natriuretic Peptide 2102 pg/mL (<100); Troponin-I High Sensitivity 31.4 ng/L (<3.5-17.0)
[2021-01-27 13:02] LABS: Alanine Aminotransferase 8 U/L (0-31); Albumin Level 4.1 g/dL (3.5-5.0); Alkaline Phosphatase 184 U/L (39-117); Anion Gap 13 (12-20); Aspartate Amino Transferase 21 U/L (5-31); Bilirubin Direct 0.3 mg/dL (0.0-0.5); Bilirubin Total 0.6 mg/dL (0.0-1.0); Blood Urea Nitrogen 9 mg/dL (9-16); Calcium 10.1 mg/dL (8.4-10.2); Carbon Dioxide 26 mmol/L (22-29); Chloride 101 mmol/L (96-108); Creatinine Clr Calc Pharmacy 57.3; Estimated Glomerular Filt Rate > 60; Glucose Random 94 mg/dL (60-115); Lipase 17 U/L (8-78); Potassium 4.7 mmol/L (3.3-5.1); Sodium 135 mmol/L (135-145); Total Protein 8.6 g/dL (6.5-8.0)
[2021-01-27 13:17] LABS: Influenza A PCR NEGATIVE (Negative); Influenza B PCR NEGATIVE (Negative); Resp Syncy Virus RNA Qual PCR NEGATIVE (Negative); SARS COV2 PCR INHOUSE NEGATIVE (Negative)
[2021-01-27] MEDS: Furosemide 40 MG/4 ML VIAL IVPUSH ×2 (13:44→21:36)
[2021-01-27 13:45] VITALS: BP 112/63; PULSE 72; RESP 20; O2SAT 98
--- NOTE | 2021-01-27 15:04 | PM.IMHP ---
History of Present Illness Date of Service: 01/27/21 Attending physician on admission: Carolina Sawant Chief Complaint: sob 54-year-old female with past medical history significant for hypertrophic obstructive cardiomyopathy, status post ventricular septal myomectomy, history of paroxysmal atrial fibrillation, WPW presented to [facility] due to symptoms of shortness of breath worsened since yesterday without associated chest pain she also noticed swelling of bilateral lower extremities for last couple months she denies recent bout of fever chills no cough, she avoid history of significant shortness of breath with exertion, and has chronic orthopnea patient ran out of her Lasix and missed her morning dose, she continued to smoke 3 cigarettes a day and uses IV heroin as needed previously was on methadone but due to difficulty going to clinic she stopped using it, she otherwise admits compliance to low-salt diet and use of Lasix 40 mg twice daily, she follows regularly with Dr. Bejarano, in emergency room patient noted to have BNP 2102 with seems to be her baseline, troponin elevated at 31.4 which is also chronically elevated and EKG shows fibrillation, left bundle-branch block that is chronic. Chest x-ray shows enlarged pulmonary arteries and increase interstitial markings possibilities of superimposed interstitial edema cannot be excluded there is no lobar or segmental airspace consolidation noted patient treated in the emergency room with 1 dose of IV Lasix and will be admitted for acute on chronic congestive heart failure due to hypertrophic obstructive cardiomyopathy. Review of Systems Review of Systems: General no headache, no dizziness no fever chills. CVS no chest pain, no palpitation. Respiratory no cough, shortness of breath worse with exertion, chronic orthopnea Gastrointestinal no nausea no vomiting, no abdominal pain no urinary urgency or frequency Yes all other systems are reviewed and are negative [facility] Medical History Congestive heart failure COPD (chronic obstructive pulmonary disease) Ex-smoker HOCM (hypertrophic obstructive cardiomyopathy) Paroxysmal atrial fibrillation WPW (Kluxi-Praghiaan-Ujhrj syndrome) Family History Father COPD (chronic obstructive pulmonary disease) Heart disease Mother Heart disease Paternal Grandmother No problems noted. Pertinent family history: Family history as above no change Surgical History H/O cardiac radiofrequency ablation History of heart surgery (~07/02/18) S/P ventricular septal myectomy Social History Household Members: Significant Other Housing: Apartment Do you presently have visiting nurse or other home services: No (pt attempting to get reva) Alcohol intake: never Patient Tobacco Use Status: Current everyday Tobacco user Tobacco use type: Cigarette Cigarettes Per Day: 3 Years Smoked: 30 Smoked in Last 30 Days: Yes Use of substances other than those prescribed or required for medical reasons: Yes Substance Use Type: Heroin Substance Use Frequency: Daily Last Used Substance Other:: pt reports last used this morning, denies withdrawls at this time Currently Displaying Signs/Symptoms of Drug Intoxication Withdrawal: No Any prior treatment program specific to substance use: Yes (suboxone, methadone, AA) Have you been hit, kicked, punched, or otherwise hurt by someone within the past year? If so, by whom?: No Do you feel safe in your current relationship?: Yes Is there a partner from a previous relationship who is making you feel unsafe now?: No Are you made to feel afraid or neglected: No Advance Directives: No Advance Directives Information Provided: No Do you have thoughts of harming others: None Do you have a plan to hurt others: No Plan Recently lost weight without trying: No Nutrition Risks: No Nutritional Risk service: No Current occupational status: disabled Meds Allergies Allergy/AdvReac Type Severity Reaction Status Date / Time No Known Allergies Allergy Verified 08/24/20 18:36 [No Known Allergies*] Active Medications: Current Medications Acetaminophen (Acetaminophen 325 Mg Tablet) 650 mg PO Q6H PRN PRN Reason: Pain, Mild (Pain Scale 1-3) Albuterol Sulfate (Albuterol Sulfate 90 Mcg 8 Gm Inhaler) 2 puff INHALE Q4H PRN PRN Reason: Shortness Of Breath Apixaban (Apixaban 5 Mg Tablet) 5 mg PO BID RAMU Furosemide (Furosemide 40 Mg/4 Ml Vial) 40 mg IVPUSH BID RAUM; Protocol Metoprolol Succinate (Metoprolol Succinate Er 25 Mg Tab.Er.24h) 25 mg PO DAILY RAMU; Protocol Ondansetron HCl (Ondansetron Hcl 4 Mg/2 Ml Vial) 4 mg IVPUSH Q8H PRN PRN Reason: Nausea and Vomiting Pharmacy Consult (Consult Rx Perform Med Rec) 1 each MISCELLANE ONCE PRN PRN Reason: Consult order Sodium Chloride (0.9 % Sodium Chloride Flush 3 Ml Syringe) 3 ml IVFLUSH QSHIFT [facility] Home Medications Medication Instructions Recorded Confirmed Last Taken Type apixaban 5 mg tablet 5 mg PO BID 03/18/20 01/27/21 01/27/21 History metoprolol succinate 25 mg 25 mg PO DAILY 06/29/20 01/27/21 01/27/21 History tablet,extended release 24 hr umeclidinium 62.5 mcg/actuation 1 inh INHALATION DAILY PRN 07/16/20 01/27/21 08/19/20 History blister powder for inhalation albuterol sulfate 90 mcg/actuation 2 puff PO Q4H PRN 08/19/20 01/27/21 Unknown History aerosol inhaler furosemide 20 mg tablet 40 mg PO BID 01/27/21 01/27/21 01/27/21 History Physical Exam Vital Signs and Narrative: Vital Signs: Last Vital Signs Temp 97.7 F 01/27/21 11:16 Pulse 72 01/27/21 13:45 Resp 20 01/27/21 13:45 BP 112/63 01/27/21 13:45 Pulse Ox 98 01/27/21 13:45 BMI result Body Mass Index 18.6 General awake alert x3, mild respiratory distress. Neck + JVD. CVS irregular rate rhythm, Respiratory lungs bibasilar crackles, no use of accessory muscles, no wheeze Gastrointestinal abdomen soft, nontender, bowel sounds audible, no guarding , no rigidity. Extremities bilateral pitting edema. Neuro nonfocal , speech clear. Skin multiple needle wooten both upper extremities Musculoskeletal no deformity Psych appropriate affect Results Labs CBC and Chem 7: 01/27/21 12:24 01/28/21 06:02 Labs: Laboratory Results - last 24 hr 01/27/21 01/27/21 01/27/21 12:03 12:06 12:24 MCV 76.7 L MCH 22.7 L MCHC 29.6 L RDW 21.8 H Plt Count 200 MPV Not Reportable Immature Gran % (Auto) 0.4 Neut % (Auto) 60.6 Lymph % (Auto) 26.5 [place] % (Auto) 9.3 Eos % (Auto) 2.2 Baso % (Auto) 1.0 Lymph # (Auto) 1.9 [place] # (Auto) 0.7 Eos # (Auto) 0.2 Baso # (Auto) 0.1 Abs Immat Gran (auto) 0.03 Absolute Neuts (auto) 4.4 Absolute Nucleated RBC 0.000 Nucleated RBC % (auto) 0.0 Smear Tech's Comments VERIFIED PT INR APTT Anion Gap Estim Creat Clear Calc Estimated GFR Random Glucose Calcium Total Bilirubin Direct Bilirubin AST ALT Alkaline Phosphatase Troponin I High Sens B-Natriuretic Peptide Total Protein Albumin Lipase Urine Color YELLOW Urine Appearance CLEAR Urine pH 6.0 Ur Specific [place] <= 1.005 Urine Protein NEG Urine Glucose (UA) NEG Urine Ketones NEG Urine Blood TRACE Urine Nitrite NEG Ur Leukocyte Esterase NEG Urine RBC 0 Urine WBC 0-2 Ur Squamous Epith Cells 1+ Urine Bacteria NONE Influenza Type A (PCR) NEGATIVE Influenza Type B (PCR) NEGATIVE RSV RNA Qual (PCR) NEGATIVE SARS-CoV-2 RNA (RT-PCR) NEGATIVE 01/27/21 01/27/21 01/27/21 12:24 12:24 12:24 MCV MCH MCHC RDW Plt Count MPV Immature Gran % (Auto) Neut % (Auto) Lymph % (Auto) [place] % (Auto) Eos % (Auto) Baso % (Auto) Lymph # (Auto) [place] # (Auto) Eos # (Auto) Baso # (Auto) Abs Immat Gran (auto) Absolute Neuts (auto) Absolute Nucleated RBC Nucleated RBC % (auto) Smear Tech's Comments PT 20.0 H INR 1.7 H APTT 42.6 H Anion Gap 13 Estim Creat Clear Calc 57.3 Estimated GFR > 60 Random Glucose 94 Calcium 10.1 D Total Bilirubin 0.6 Direct Bilirubin 0.3 AST 21 ALT 8 Alkaline Phosphatase 184 H D Troponin I High Sens 31.4 H B-Natriuretic Peptide Total Protein 8.6 H D Albumin 4.1 Lipase 17 Urine Color Urine Appearance Urine pH Ur Specific [place] Urine Protein Urine Glucose (UA) Urine Ketones Urine Blood Urine Nitrite Ur Leukocyte Esterase Urine RBC Urine WBC Ur Squamous Epith Cells Urine Bacteria Influenza Type A (PCR) Influenza Type B (PCR) RSV RNA Qual (PCR) SARS-CoV-2 RNA (RT-PCR) 01/27/21 12:24 MCV MCH MCHC RDW Plt Count MPV Immature Gran % (Auto) Neut % (Auto) Lymph % (Auto) [place] % (Auto) Eos % (Auto) Baso % (Auto) Lymph # (Auto) [place] # (Auto) Eos # (Auto) Baso # (Auto) Abs Immat Gran (auto) Absolute Neuts (auto) Absolute Nucleated RBC Nucleated RBC % (auto) Smear Tech's Comments PT INR APTT Anion Gap Estim Creat Clear Calc Estimated GFR Random Glucose Calcium Total Bilirubin Direct Bilirubin AST ALT Alkaline Phosphatase Troponin I High Sens B-Natriuretic Peptide 2102 H Total Protein Albumin Lipase Urine Color Urine Appearance Urine pH Ur Specific [place] Urine Protein Urine Glucose (UA) Urine Ketones Urine Blood Urine Nitrite Ur Leukocyte Esterase Urine RBC Urine WBC Ur Squamous Epith Cells Urine Bacteria Influenza Type A (PCR) Influenza Type B (PCR) RSV RNA Qual (PCR) SARS-CoV-2 RNA (RT-PCR) Imaging Radiologist's Impressions: Impressions Chest X-Ray 01/27/21 11:48 IMPRESSION: 1. Cardiomegaly with enlarged pulmonary arteries and increased interstitial markings similar to prior exam 09/15/2020. Possibility of superimposed interstitial edema cannot be excluded. 2. No lobar or segmental airspace consolidation or effusion. Assessment and Plan (1) COPD (chronic obstructive pulmonary disease): Status: Acute (2) HOCM (hypertrophic obstructive cardiomyopathy): Status: Acute (3) Persistent atrial fibrillation: Status: Acute (4) WPW (Vtlju-Elhoqzsyw-Pqenu syndrome): Status: Acute (5) Acute on chronic congestive heart failure: Status: Acute 54-year-old female with complex cardiovascular issues including hypertrophic cardiomyopathy status post myomectomy, WPW syndrome and atrial fibrillation status post ablation and congestive heart failure due to cardiomyopathy presented to [facility] with symptoms of shortness of breath and worsening leg edema diagnosed to be in acute CHF. # acute on chronic diastolic CHF exacerbation due to hypertrophic cardiomyopathy With shortness of breath, elevated BNP, orthopnea, PND, dyspnea, and chest x-ray revealing pulmonary congestion troponin slightly elevated with no chest pain, will repeat troponin, EKG showed chronic left bundle-branch block will place on Lasix 40img IV b.i.d. consult cardiology strict I&O, daily weight, low-sodium diet Echo from October 2019 showed EF 50-55%, wall motion abnormality and Abnormal diastolic function # atrial fib Rate controlled, continue apixaban, and metoprolol # COPD not in exacerbation, continue home inhalers # Active heroin abuse, insurance is working to get methadone delivered at home # tobacco use disorder strongly recommend to abstain from smoking smokes only 3 cigarettes a day DVT prophylaxis:? Apixaban Quality Stroke Does the patient have a stroke diagnosis?: No VTE Prior VTE?: No VTE Risk Level:: Medical - moderate - high VTE Device Contraindication: Treatment Not Indicated VTE Drug Contraindication: N/A - Med Ordered
[2021-01-27 15:15] VITALS: BP 116/64; PULSE 75; RESP 20; TEMP 36.4; O2SAT 95
[2021-01-27] MEDS: 0.9 % Sodium Chloride Flush 3 ML SYRINGE IVFLUSH ×2 (17:52→21:37)
[2021-01-27 20:57] VITALS: BP 112/73; PULSE 73; RESP 16; TEMP 36.9; O2SAT 96
[2021-01-27] MEDS: Apixaban 5 MG TABLET PO (21:36)
[2021-01-28] VITALS (8 sets, daily range): BP systolic 107–138; BP diastolic 60–78; PULSE 70–87; RESP 16–18; TEMP 36.4–36.9; O2SAT 93–96
[2021-01-28 07:02] LABS: B Type Natriuretic Peptide 1687 pg/mL (<100)
[2021-01-28 07:11] LABS: Anion Gap 16 (12-20); Blood Urea Nitrogen 16 mg/dL (9-16); Calcium 10.1 mg/dL (8.4-10.2); Carbon Dioxide 28 mmol/L (22-29); Chloride 99 mmol/L (96-108); Creatinine Clr Calc Pharmacy 43.7; Estimated Glomerular Filt Rate 54; Glucose Random 116 mg/dL (60-115); Potassium 4.6 mmol/L (3.3-5.1); Sodium 138 mmol/L (135-145)
--- NOTE | 2021-01-28 07:51 | P.CDIC_ITS ---
CDI Concurrent Query Documentation Clarification: PHYSICIAN'S DOCUMENTATION REQUEST Date of Query: 01/28/21 0752 Patient Name: Vanessa Murphy Admit Date: 01/27/21 Dear Doctor, A review of the medical record indicates additional documentation may be needed. Please review below and update the documentation accordingly. Clinical Indicators: Risk Factors/Clinical Indicators/Treatments Congestive heart failure 2nd hypertrophic cardiomyopathy. Short of breath, lower extremity swelling, ran out of home Lasix IV Lasix given in Ed. BNP 2102 H 1687 H Ed:: labs are consistent with CHF admit for further diuresis. Please provide further specificity regarding the most likely type and acuity of CHF you are evaluating, treating, or monitoring. Examples include: Type: * Systolic * Diastolic * Combined Systolic/Diastolic * Other ? please specify * Unable to determine Acuity: * Acute * Chronic * Acute on chronic * Unable to determine Use of terms such as suspected, likely, concern for, or probable (associated with a specific diagnosis that is being evaluated, monitored, or treated as if it exists) are acceptable and can be coded in the inpatient setting, when documented at the time of discharge. Thank you, Jen Milligan [facility], CDIS Extension: [phone] Please use your independent medical judgment in providing your response. THIS QUERY IS PART OF THE PERMANENT MEDICAL RECORD Provider Response: Other Other Diagnosis: see note
--- NOTE | 2021-01-28 08:50 | MHC.CM.PN ---
CM met with Patient at bedside and addressed IMM with her, providing her with the original and placing a copy on the chart. Patient lives alone in an apartment and is in the process of applying for [facility] [employer] services.Patient had no services [employer]UCATION and she uses a cane to assist with mobility.Home is the goal for dc and CM has initiated and will follow for dc planning.Patient's Son/Cleve is the HCP and PCP is Dr.David Weiss.
[2021-01-28] MEDS: Metoprolol Succinate ER 25 MG TAB.ER.24H PO (09:05)
[2021-01-28] MEDS: Furosemide 40 MG/4 ML VIAL IVPUSH (09:06)
[2021-01-28] MEDS: 0.9 % Sodium Chloride Flush 3 ML SYRINGE IVFLUSH (09:06)
[2021-01-28] MEDS: Apixaban 5 MG TABLET PO (09:06)
--- NOTE | 2021-01-28 09:53 | PM.CNCAR ---
History of Present Illness History of Present Illness Date of Service: 01/28/21 Chief complaint: shortness of breath Narrative: This is a cardiology consultation regarding congestive heart failure. Complicated medical history. She has hypertrophic cardiomyopathy and has undergone septal myectomy the past. She also has a history of proximal atrial fibrillation but probably more recently in persistent fibrillation as the prior EKG from few months back also shows atrial fibrillation. 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 Unfortunately, she has the heroin user and still use it every single day. Most recently couple of days ago. She states she takes 80 mg of Lasix-2-20 mg tablets in the morning and 2-20 mg tablets later in the day. When I questioned her, she stated that she was taking the medications without any issues but the hospitalist states that she actually had been missing medications recently as she did not have them. Hence there was increasing shortness of breath and leg swelling which led to the hospitalization. She has received some diuretics and she states she is feeling much better. No other cardiac complaints at this time. Otherwise she states that she is compliant with medical therapy. She smokes a few cigarettes a day. Daily heroin as above. Review of Systems Review of Systems: Yes all other systems are reviewed and are negative Cardiovascular: Cardiovascular: Reports as per HPI, Reports no additional cardiovascular complaints, Denies acrocyanosis, Denies cool extremities, Denies painful fingertips, Denies chest pain, Denies chest pain at rest, Denies diaphoresis, Denies syncope, Denies irregular heart rhythm, Denies claudication, Reports leg edema, Denies lightheadedness, Denies palpitations and Reports dyspnea Respiratory: Respiratory: Reports dyspnea Neurologic: Denies syncope Endocrine: Endocrine: Denies palpitations [facility] Past Medical History Medical History Congestive heart failure COPD (chronic obstructive pulmonary disease) Ex-smoker HOCM (hypertrophic obstructive cardiomyopathy) Paroxysmal atrial fibrillation WPW (Yjazz-Vsoreucdr-Mgkro syndrome) Family History Family History Father COPD (chronic obstructive pulmonary disease) Heart disease Mother Heart disease Paternal Grandmother No problems noted. Surgical History Surgical History H/O cardiac radiofrequency ablation History of heart surgery (~05/06/19) S/P ventricular septal myectomy Social History Social History Household Members: Significant Other Housing: Apartment Do you presently have visiting nurse or other home services: No (pt attempting to get reva) Alcohol intake: never Patient Tobacco Use Status: Current everyday Tobacco user Tobacco use type: Cigarette Cigarettes Per Day: 3 Years Smoked: 30 Smoked in Last 30 Days: Yes Use of substances other than those prescribed or required for medical reasons: Yes Substance Use Type: Heroin Substance Use Frequency: Daily Last Used Substance Other:: pt reports last used this morning, denies withdrawls at this time Currently Displaying Signs/Symptoms of Drug Intoxication Withdrawal: No Any prior treatment program specific to substance use: Yes (suboxone, methadone, AA) Have you been hit, kicked, punched, or otherwise hurt by someone within the past year? If so, by whom?: No Do you feel safe in your current relationship?: Yes Is there a partner from a previous relationship who is making you feel unsafe now?: No Are you made to feel afraid or neglected: No Advance Directives: No Advance Directives Information Provided: No Do you have thoughts of harming others: None Do you have a plan to hurt others: No Plan Recently lost weight without trying: No Nutrition Risks: No Nutritional Risk service: No Current occupational status: disabled Meds Allergies Allergy/AdvReac Type Severity Reaction Status Date / Time No Known Allergies Allergy Verified 08/24/20 18:36 [No Known Allergies*] Active Medications: Current Medications Acetaminophen (Acetaminophen 325 Mg Tablet) 650 mg PO Q6H PRN PRN Reason: Pain, Mild (Pain Scale 1-3) Albuterol Sulfate (Albuterol Sulfate 90 Mcg 8 Gm Inhaler) 2 puff INHALE Q4H PRN PRN Reason: Shortness Of Breath Apixaban (Apixaban 5 Mg Tablet) 5 mg PO BID RAMU Last Admin: 01/28/21 09:06 Dose: 5 mg Documented by: Furosemide (Furosemide 40 Mg/4 Ml Vial) 40 mg IVPUSH BID RAMU; Protocol Last Admin: 01/28/21 09:06 Dose: 40 mg Documented by: Metoprolol Succinate (Metoprolol Succinate Er 25 Mg Tab.Er.24h) 25 mg PO DAILY RAMU; Protocol Last Admin: 01/28/21 09:05 Dose: 25 mg Documented by: Ondansetron HCl (Ondansetron Hcl 4 Mg/2 Ml Vial) 4 mg IVPUSH Q8H PRN PRN Reason: Nausea and Vomiting Pharmacy Consult (Consult Rx Perform Med Rec) 1 each MISCELLANE ONCE PRN PRN Reason: Consult order Sodium Chloride (0.9 % Sodium Chloride Flush 3 Ml Syringe) [facility] Admin: 01/28/21 09:06 Dose: 3 ml Documented by: Home Medications Medication Instructions Recorded Confirmed Last Taken Type apixaban 5 mg tablet 5 mg PO BID 03/18/20 01/27/21 01/27/21 History metoprolol succinate 25 mg 25 mg PO DAILY 06/29/20 01/27/21 01/27/21 History tablet,extended release 24 hr umeclidinium 62.5 mcg/actuation 1 inh INHALATION DAILY PRN 07/16/20 01/27/21 08/19/20 History blister powder for inhalation albuterol sulfate 90 mcg/actuation 2 puff PO Q4H PRN 08/19/20 01/27/21 Unknown History aerosol inhaler furosemide 20 mg tablet 40 mg PO BID 01/27/21 01/27/21 01/27/21 History Physical Exam Vital Signs: Vital Signs: Last Vital Signs Temp 98.5 F 01/28/21 07:49 Pulse 74 01/28/21 09:05 Resp 16 01/28/21 07:49 BP 112/68 01/28/21 09:05 Pulse Ox 95 01/28/21 07:49 BMI result Body Mass Index 18.6 Const: General: cooperative and no acute distress HENMT: Other: Unremarkable Neck: Neck: Yes normal visual inspection Chest: Chest palpation & inspection: normal inspection of the chest Resp: Auscultation: clear to auscultation bilaterally, no crackles and no wheezes Cardio: Jugular venous distension: no JVD Palpation: normal PMI Heart sounds: S1 normal heart sound present, S2 normal heart sound present, no gallops, Murmur heart sound present (2/6 HSM apex) and no rubs GI: Palpation (GI): Soft to palpation Back/Spine/Pelvis: Other: unremarkable Skin: General skin exam: no rashes or lesions noted Neuro: Cranial nerves: Yes Other cranial nerve findings present Extrem: General: Yes edema (1+) Psych: Mental Status: other Objective Labs and Meds Result diagrams: 01/27/21 12:24 01/28/21 06:02 Lab results: Laboratory Results - last 24 hr 01/27/21 01/27/21 01/27/21 12:03 12:06 12:24 WBC 7.2 RBC 6.21 H Hgb 14.1 Hct 47.6 H MCV 76.7 L MCH 22.7 L MCHC 29.6 L RDW 21.8 H Plt Count 200 MPV Not Reportable Immature Gran % (Auto) 0.4 Neut % (Auto) 60.6 Lymph % (Auto) 26.5 [place] % (Auto) 9.3 Eos % (Auto) 2.2 Baso % (Auto) 1.0 Lymph # (Auto) 1.9 [place] # (Auto) 0.7 Eos # (Auto) 0.2 Baso # (Auto) 0.1 Abs Immat Gran (auto) 0.03 Absolute Neuts (auto) 4.4 Absolute Nucleated RBC 0.000 Nucleated RBC % (auto) 0.0 Smear Tech's Comments VERIFIED PT INR APTT Sodium Potassium Chloride Carbon Dioxide Anion Gap BUN Creatinine Estim Creat Clear Calc Estimated GFR Random Glucose Calcium Total Bilirubin Direct Bilirubin AST ALT Alkaline Phosphatase Troponin I High Sens B-Natriuretic Peptide Total Protein Albumin Lipase Urine Color YELLOW Urine Appearance CLEAR Urine pH 6.0 Ur Specific [place] <= 1.005 Urine Protein NEG Urine Glucose (UA) NEG Urine Ketones NEG Urine Blood TRACE Urine Nitrite NEG Ur Leukocyte Esterase NEG Urine RBC 0 Urine WBC 0-2 Ur Squamous Epith Cells 1+ Urine Bacteria NONE Influenza Type A (PCR) NEGATIVE Influenza Type B (PCR) NEGATIVE RSV RNA Qual (PCR) NEGATIVE SARS-CoV-2 RNA (RT-PCR) NEGATIVE 01/27/21 01/27/21 01/27/21 12:24 12:24 12:24 WBC RBC Hgb Hct MCV MCH MCHC RDW Plt Count MPV Immature Gran % (Auto) Neut % (Auto) Lymph % (Auto) [place] % (Auto) Eos % (Auto) Baso % (Auto) Lymph # (Auto) [place] # (Auto) Eos # (Auto) Baso # (Auto) Abs Immat Gran (auto) Absolute Neuts (auto) Absolute Nucleated RBC Nucleated RBC % (auto) Smear Tech's Comments PT 20.0 H INR 1.7 H APTT 42.6 H Sodium 135 Potassium 4.7 Chloride 101 Carbon Dioxide 26 Anion Gap 13 BUN 9 Creatinine 0.80 Estim Creat Clear Calc 57.3 Estimated GFR > 60 Random Glucose 94 Calcium 10.1 D Total Bilirubin 0.6 Direct Bilirubin 0.3 AST 21 ALT 8 Alkaline Phosphatase 184 H D Troponin I High Sens 31.4 H B-Natriuretic Peptide Total Protein 8.6 H D Albumin 4.1 Lipase 17 Urine Color Urine Appearance Urine pH Ur Specific [place] Urine Protein Urine Glucose (UA) Urine Ketones Urine Blood Urine Nitrite Ur Leukocyte Esterase Urine RBC Urine WBC Ur Squamous Epith Cells Urine Bacteria Influenza Type A (PCR) Influenza Type B (PCR) RSV RNA Qual (PCR) SARS-CoV-2 RNA (RT-PCR) 01/27/21 01/28/21 01/28/21 12:24 06:02 06:03 WBC RBC Hgb Hct MCV MCH MCHC RDW Plt Count MPV Immature Gran % (Auto) Neut % (Auto) Lymph % (Auto) [place] % (Auto) Eos % (Auto) Baso % (Auto) Lymph # (Auto) [place] # (Auto) Eos # (Auto) Baso # (Auto) Abs Immat Gran (auto) Absolute Neuts (auto) Absolute Nucleated RBC Nucleated RBC % (auto) Smear Tech's Comments PT INR APTT Sodium 138 Potassium 4.6 Chloride 99 Carbon Dioxide 28 Anion Gap 16 BUN 16 D Creatinine 1.05 Estim Creat Clear Calc 43.7 Estimated GFR 54 Random Glucose 116 H Calcium 10.1 Total Bilirubin Direct Bilirubin AST ALT Alkaline Phosphatase Troponin I High Sens B-Natriuretic Peptide 2102 H 1687 H Total Protein Albumin Lipase Urine Color Urine Appearance Urine pH Ur Specific [place] Urine Protein Urine Glucose (UA) Urine Ketones Urine Blood Urine Nitrite Ur Leukocyte Esterase Urine RBC Urine WBC Ur Squamous Epith Cells Urine Bacteria Influenza Type A (PCR) Influenza Type B (PCR) RSV RNA Qual (PCR) SARS-CoV-2 RNA (RT-PCR) ECG Interpretation: EKG shows underlying atrial fibrillation with a left bundle-branch block pattern at 70/Min. All prior EKG from August shows either fibrillation or flutter and difficult to say. Imaging Radiologist's impression: Impressions Chest X-Ray 01/27/21 11:48 IMPRESSION: 1. Cardiomegaly with enlarged pulmonary arteries and increased interstitial markings similar to prior exam 09/15/2020. Possibility of superimposed interstitial edema cannot be excluded. 2. No lobar or segmental airspace consolidation or effusion. Assessment and Plan (1) Acute on chronic diastolic (congestive) heart failure: Status: Acute (2) HOCM (hypertrophic obstructive cardiomyopathy): Status: Acute (3) Persistent atrial fibrillation: Status: Acute (4) WPW (Bgknm-Xgctzyzvr-Bpflx syndrome): Status: Acute (5) Heroin abuse: Status: Acute Last echocardiogram reviewed from October 2019. LVEF 50-55%. Described to have mild LVH. Pseudo normal filling pattern. Inferior wall akinesis and inferolateral hypokinesis and low-normal RV function. Left atrium was noted to be severely dilated. Labs show potassium 4.6, creatinine 1.05, BUN 16. Hemoglobin 14.1. White cell 7.2. Platelets 200. High sensitive troponins-31.4. Similar to previous levels. Chest x-ray reported have cardiomegaly with enlarged pulmonary arteries increased interstitial markings. Overall, could treat for acute on chronic diastolic heart failure probably from missing diuretics. With regard to atrial fibrillation, it has been present for almost 6 months now and with daily drug use, would not pursue rhythm control at this time. May remain on beta-blockers and anticoagulation. Procedures Date of Service Date of Service: 01/28/21
--- NOTE | 2021-01-28 11:44 | MHC.CM.PN ---
Patient has been medically cleared for dc to home today, no services.IMM addressed this morning.
--- NOTE | 2021-01-28 14:50 | PC.NURSE ---
At around 1033 this AM, Physical Therapist Mahnaz approached me and informed me that as walking by rm [id number], she saw the patient fall down to the ground and get back up. Upon my assessment, pt A&O x4. VSS. No LOC. Dr Sawant made aware. Orthostatic vitals completed. Patient had [employer] camera in place but out of view. Patient refusing all alarms. Red socks on. Patient resting in recliner with no complaints
--- NOTE | 2021-01-28 15:42 | PM.DS ---
DS: Providers Provider Date of Service: 01/28/21 Date of admission: 01/27/21 14:54 Primary care physician: Jose Roberto Weiss MD Consults: 01/27/21 15:01 Consult to Cardiology Routine Consulting Provider: Blake Thomas Reason for consultation: cardiomyopathy Has provider been notified: No DS: Diagnosis Discharge Diagnosis (1) Acute on chronic diastolic (congestive) heart failure: Status: Acute (2) HOCM (hypertrophic obstructive cardiomyopathy): Status: Acute (3) Persistent atrial fibrillation: Status: Acute (4) WPW (Dlhmq-Pbwzsniow-Ixpdw syndrome): Status: Acute (5) Heroin abuse: Status: Acute DS: Summary Hospital Course Hospital Course: Chief Complaint: sob 54-year-old female with past medical history significant for hypertrophic obstructive cardiomyopathy, status post ventricular septal myomectomy, history of paroxysmal atrial fibrillation, WPW presented to [facility] due to symptoms of shortness of breath worsened since yesterday without associated chest pain she also noticed swelling of bilateral lower extremities for last couple months she denies recent bout of fever chills no cough, she avoid history of significant shortness of breath with exertion, and has chronic orthopnea patient ran out of her Lasix and missed her morning dose, she continued to smoke 3 cigarettes a day and uses IV heroin as needed previously was on methadone but due to difficulty going to clinic she stopped using it, she otherwise admits compliance to low-salt diet and use of Lasix 40 mg twice daily, she follows regularly with Dr. Bejarano, in emergency room patient noted to have BNP 2102 with seems to be her baseline, troponin elevated at 31.4 which is also chronically elevated and EKG shows fibrillation, left bundle-branch block that is chronic.? Chest x-ray shows enlarged pulmonary arteries and increase interstitial markings possibilities of superimposed interstitial edema cannot be excluded there is no lobar or segmental airspace consolidation noted patient treated in the emergency room with 1 dose of IV Lasix and will be admitted for acute on chronic congestive heart failure due to hypertrophic obstructive cardiomyopathy. Hospital course 54-year-old female with complex cardiovascular issues including hypertrophic cardiomyopathy status post myomectomy, WPW syndrome and atrial fibrillation status post ablation and congestive heart failure due to cardiomyopathy presented to [facility] with symptoms of shortness of breath and worsening leg edema diagnosed to be in acute CHF. Problem list # acute on chronic diastolic CHF exacerbation due to hypertrophic cardiomyopathy, patient admitted with shortness of breath,elevated BNP, orthopnea, PND, dyspnea, and chest x-ray revealing pulmonary congestion ?? troponin x2 slightly elevated with no chest pain,EKG showed chronic left bundle-branch block, patient treated with IV Lasix 40 mg b.i.d. with good response, patient evaluated by Cardiology they recommend no further medication adjustment therefore being discharged home with strong recommendation to comply with low-salt diet and diuretics. ?? Echo from October 2019 showed EF 50-55%, wall motion abnormality and Abnormal diastolic function. # atrial fib ?? Rate controlled, continue apixaban, and metoprolol, patient noted to have short runs of nonsustained V-tach she remained asymptomatic. # COPD no acute exacerbation noted recommend to continue home inhalers ? # Active heroin abuse, strongly recommend to abstain from illicit drug use, insurance is working to get methadone delivered at home # tobacco use disorder strongly recommend to abstain from smoking, smokes 3 cigarettes a day # brief episode of spacing out and falls, patient noted to have an episode of fall, she remained hemodynamically stable, blood sugars stable, normal orthostatic studies, according to patient symptoms are going on for last 2 months , they happen suddenly while standing she space out and fall without any jerky movement, loss of consciousness and post episode has no confusion, recommended inpatient neurological workup including EEG patient declined and wishes to be followed by her primary care physician next week for further workup. Time Spent with Patient Time attestation: Total time spent providing and/or coordinating discharge services: Discharge coordination time: Greater than 30 minutes Quality: Stroke Does the patient have a stroke diagnosis?: No Physical Exam Vital Signs: Vital Signs: Last Vital Signs Temp 97.5 F 01/28/21 11:11 Pulse 77 01/28/21 11:20 Resp 18 01/28/21 11:11 BP 115/64 01/28/21 11:20 Pulse Ox 96 01/28/21 11:11 BMI result Body Mass Index 18.6 General awake alert x3, mild respiratory distress.? Neck no JVD. CVS irregular rate rhythm, Respiratory lungs crackles resolved, no use of accessory muscles, no wheeze Gastrointestinal abdomen soft, nontender, bowel sounds audible, no guarding , no rigidity. Extremities bilateral pitting edema improving Neuro nonfocal , speech clear. Skin multiple needle wooten both upper extremities Musculoskeletal no deformity Psych appropriate affect DS: Data Data Completed and Pending Labs on day of discharge: Laboratory Results - last 24 hr 01/28/21 01/28/21 06:02 06:03 Sodium 138 Potassium 4.6 Chloride 99 Carbon Dioxide 28 Anion Gap 16 BUN 16 D Creatinine 1.05 Estim Creat Clear Calc 43.7 Estimated GFR 54 Random Glucose 116 H Calcium 10.1 B-Natriuretic Peptide 1687 H Discharge Plan Discharge Patient Disposition: Home, Self-Care Discharge Diagnosis: Acute on chronic diastolic congestive heart failure Chronic atrial fibrillation Referrals: Jose Roberto Weiss MD [Primary Care Provider] - 1 Week Discharge Medications: New furosemide [Lasix] 40 mg tablet 40 mg PO BID Qty: 60 RF: 0 Continued albuterol sulfate 90 mcg/actuation HFA aerosol inhaler 2 puff PO Q4H PRN (Reason: Shortness Of Breath) RF: 0 furosemide 20 mg tablet 40 mg PO BID RF: 0 apixaban 5 mg tablet 5 mg PO BID RF: 0 metoprolol succinate 25 mg tablet extended release 24 hr 25 mg PO DAILY RF: 0 umeclidinium 62.5 mcg/actuation blister with device 1 inh inhalation DAILY PRN (Reason: sob) RF: 0 Discharge Orders: Discharge Order (Routine); Ordered 01/28/21 Ordered By: Carolina Sawant Diet: low fat, low cholesterol and low salt diet Activity on Discharge: No driving Stand Alone Forms: Patient Portal Discharge page Care Plan Goals: Congestive heart failure improves take all medications as prescribed, follow low-salt diet, take Lasix 40 mg twice daily Strongly recommended to abstain from smoking and avoid illicit drug use Patient informed about periods of sudden fall, recommended outpatient follow-up with PCP and Neurology to obtain EEG to rule out seizure, recommend to avoid driving car swimming or taking tub baths until seizures or rule out Health Concerns: Continue all medications as above Plan of Treatment: Outpatient follow-up with primary care physician in 1 week and with Cardiology in 2-4 weeks Assessment: As above Discharge Date/Time: 01/28/21 13:00
== END 2021-01-28 13:00 | disposition home or self-care (01) | DRG 292 ==
LOC: HO.ED 14:12 → HO.EDOVER 15:18 → HO.IMC 17:26
PROVIDERS: Admitting Provider Hospitalist; Emergency Provider Emergency Medicine; PCP Internal Medicine; Visit Provider Hospitalist
DX: I50.33 Acute on chronic diastolic (congestive) heart failure (principal); I42.1 Obstructive hypertrophic cardiomyopathy; I47.1 Supraventricular tachycardia; I48.0 Paroxysmal atrial fibrillation; J44.9 Chronic obstructive pulmonary disease, unspecified; F17.210 Nicotine dependence, cigarettes, uncomplicated; F11.10 Opioid abuse, uncomplicated; Z71.6 Tobacco abuse counseling; I45.6 Pre-excitation syndrome; Z20.822 Contact with and (suspected) exposure to COVID-19; Z79.01 Long term (current) use of anticoagulants; Z79.899 Other long term (current) drug therapy
CPT/HCPCS: 0241U; 36415; 71045; 80048; 80076; 81001; 83690; 83880; 84484; 85025; 85610; 85730; 93005; 96374; 99285; J1940

== ENCOUNTER 2021-03-01 19:43 | Emergency (ER) | payer OTHER, SELFPAY ==
[2021-03-01 20:46] VITALS: BP 126/63; PULSE 66; RESP 16; TEMP 36.7; O2SAT 96; BMI 18.6
[2021-03-01 21:17] LABS: COVID-19 Test Negative (Negative)
== END 2021-03-01 23:50 | disposition left against medical advice (07) ==
PROVIDERS: Emergency Provider Emergency Medicine; PCP Internal Medicine
DX: R06.02 Shortness of breath (principal); R05.9 Cough, unspecified; Z20.822 Contact with and (suspected) exposure to COVID-19; I48.19 Other persistent atrial fibrillation; I50.9 Heart failure, unspecified; F11.10 Opioid abuse, uncomplicated
CPT/HCPCS: 36415; 87635; 99282; 99283

== ENCOUNTER → 2021-03-16 13:15 | Outpatient (BNVA) | payer OTHER, SELFPAY | PROVIDERS: PCP Internal Medicine; Visit Provider Nurse Practitioner Family | DX: I50.9 Heart failure, unspecified (principal); I48.19 Other persistent atrial fibrillation; I45.6 Pre-excitation syndrome; I42.1 Obstructive hypertrophic cardiomyopathy; F11.10 Opioid abuse, uncomplicated | CPT/HCPCS: 99212 ==

== ENCOUNTER 2021-04-27 22:49 | Emergency (ER) | payer OTHER, SELFPAY ==
--- NOTE | 2021-04-27 | ECG_ITS ---
Test Reason : CHEST PAIN Blood Pressure : / mmHG Vent. Rate : 091 BPM Atrial Rate : 000 BPM P-R Int : 000 ms QRS Dur : 144 ms QT Int : 388 ms P-R-T Axes : 000 -23 130 degrees QTc Int : 477 ms Atrial fibrillation Left bundle branch block Abnormal ECG When compared with ECG of 27-JAN-2021 11:43, No significant change was found Referred By: Generic ED Physician Electronically Signed By:Osvaldo Rai
--- NOTE | ~2021-04-27 | XR_ITS ---
EXAMINATION: XR CHEST CLINICAL INFORMATION: Chest pain COMPARISON: Chest x-ray 01/27/2021 TECHNIQUE: Frontal portable view of the chest was obtained. 11:39 PM FINDINGS: Chronic increased lung markings. Status post median sternotomy. Cardiomediastinal contours normal. No pulmonary vascular congestion. No focal consolidation, pleural effusion or pneumothorax. XR/XR chest 1V IMPRESSION: No acute abnormality of chest.
[2021-04-27 22:55] VITALS: BP 115/61; PULSE 91; RESP 18; TEMP 37.3; O2SAT 96
--- NOTE | 2021-04-27 23:01 | ED.CHESTPAIN ---
HPI - Chest Pain General Chief Complaint: Chest Pain Stated Complaint: chest pain Time Seen by Provider: 04/27/21 23:01 Source: patient History of Present Illness HPI narrative: Patient with history of heroin abuse hypertrophic cardiomyopathy status post septal myectomy paroxysmal atrial fibrillation WPW status post ablation COPD and CHF complaining of mid chest pain for last 3 days patient stop using heroin for last 7 days on methadone now taking Eliquis for AFib noticed mid chest pain for last 3 days off and on similar to that in the past but is not going away this time radiates to the back feels slight short of breath saturating 96% at room air denies any cough or fever Related Data Home Medications Medication Instructions Recorded Confirmed apixaban 5 mg tablet 5 mg PO BID 03/18/20 03/16/21 metoprolol succinate 25 mg 25 mg PO DAILY 06/29/20 03/16/21 tablet,extended release 24 hr albuterol sulfate 90 mcg/actuation 2 puff PO Q4H PRN 08/19/20 03/16/21 aerosol inhaler furosemide 20 mg tablet 40 mg PO BID 01/27/21 03/16/21 naloxone 4 mg/actuation nasal 1 spray INTRANASAL ONCE PRN 03/16/21 03/16/21 spray (Narcan) Allergies Allergy/AdvReac Type Severity Reaction Status Date / Time No Known Allergies Allergy Verified 03/16/21 13:35 [No Known Allergies*] Review of Systems Review of Systems: Yes all other systems are reviewed and are negative [facility] Past Medical History Medical History (Updated 04/28/21 @ 03:47 by Kaushik Skelton MD) Congestive heart failure Congestive heart failure COPD (chronic obstructive pulmonary disease) Ex-smoker HOCM (hypertrophic obstructive cardiomyopathy) Paroxysmal atrial fibrillation Persistent atrial fibrillation WPW (Jfozr-Hrfhqmeqn-Gwald syndrome) Surgical History H/O cardiac radiofrequency ablation History of heart surgery (~07/02/18) S/P ventricular septal myectomy Family History Family History Father COPD (chronic obstructive pulmonary disease) Heart disease Mother Heart disease Paternal Grandmother No problems noted. Social History Social History (Updated 03/16/21 @ 13:39 by DAKOTAH Peterson) Household Members: Significant Other Housing: Apartment Do you presently have visiting nurse or other home services: No (pt attempting to get reva) Alcohol intake: never Patient Tobacco Use Status: Current everyday Tobacco user Tobacco use type: Cigarette Cigarettes Per Day: 5 Years Smoked: 30 +/- Substance Use Type: Heroin Advance Directives: No Advance Directives Information Provided: No service: No Current occupational status: disabled Physical Exam Vital Signs: Vital Signs: Last Vital Signs Temp 98.3 F 04/28/21 00:59 Pulse 72 04/28/21 02:37 Resp 16 04/28/21 02:37 BP 91/56 L 04/28/21 02:37 Pulse Ox 94 04/28/21 02:37 BMI result Body Mass Index 18.3 Appearance: Alert. Oriented X3. No acute distress. Thin emaciated Eyes: No pyloric ENT: Pharynx normal. Oral Mucosa moist Neck: Normal inspection. Neck supple. CVS: Normal heart rate and rhythm. Pulses normal. Respiratory: No respiratory distress. Equal air entry bilateral, no wheezing/rales/rhonchi Abdomen: Soft and nontender. Bowel sounds are present, no mass palpable, no CVA tenderness Skin: Skin warm and dry. Normal skin color. Normal skin turgor. Extremities: No lower extremity edema. No calf tenderness signs of IVDA Neuro: Oriented X 3. MDM - Chest Pain MDM Narrative Medical decision making narrative: Patient chest pain for last 3 days no acute ischemic changes in the EKG troponin slightly elevated will repeat troponin in 2 hours patient already on Eliquis and took 4 baby aspirin at home prior to arrival No delta change in troponin will discharge patient home Lab Data Attestation: I reviewed the patient's lab results. Result diagrams: 04/28/21 00:01 04/28/21 00:01 Labs: Lab Results 04/28/21 04/28/21 04/28/21 Range/Units 00:00 00:00 00:00 WBC (4.8-10.8) X10*3/uL RBC (4.20-5.50) X10*6/uL Hgb (12.0-16.0) g/dl Hct (37.0-47.0) % MCV (80.0-98.0) fL MCH (27.0-33.0) pg MCHC (31.0-35.0) g/dl RDW (11.0-16.0) % Plt Count (160-400) X10*3/uL MPV Immature Gran % (Auto) (0.0-0.4) % Neut % (Auto) (45-73) % Lymph % (Auto) (20-40) % [place] % (Auto) (2-11) % Eos % (Auto) (0-4) % Baso % (Auto) (0-2) % Lymph # (Auto) (1.2-4.9) X10*3/uL [place] # (Auto) (0.1-1.2) X10*3/uL Eos # (Auto) (0.0-0.4) X10*3/uL Baso # (Auto) (0.0-0.2) X10*3/uL Abs Immat Gran (auto) (0.00-0.03) X10*3/uL Absolute Neuts (auto) (2.0-8.3) x10*3/uL Absolute Nucleated RBC (0.0-0.012) X10*3/uL Nucleated RBC % (auto) (0.0-0.2) /100WBC PT 23.7 H (9.9-13.0) SEC INR 2.1 H (0.9-1.1) APTT 38.7 H (24.1-38.0) SEC D-Dimer High Sensitivty < 150 NG/ML Sodium (135-145) mmol/L Potassium (3.3-5.1) mmol/L Chloride (96-108) mmol/L Carbon Dioxide (22-29) mmol/L Anion Gap (12-20) BUN (9-16) mg/dL Creatinine (0.5-1.4) mg/dL Estim Creat Clear Calc Estimated GFR Random Glucose (60-115) mg/dL Calcium (8.4-10.2) mg/dL Total Bilirubin (0.0-1.0) mg/dL AST (5-31) U/L ALT (0-31) U/L Alkaline Phosphatase (39-117) U/L Troponin I High Sens 58.5 H* D (<3.5-17.0) ng/L Total Protein (6.5-8.0) g/dL Albumin (3.5-5.0) g/dL COVID-19 (RY) Negative (Negative) COVID-19 Clin Com See Note 04/28/21 04/28/21 04/28/21 Range/Units 00:01 00:01 02:20 WBC 8.7 (4.8-10.8) X10*3/uL RBC 6.05 H (4.20-5.50) X10*6/uL Hgb 15.0 (12.0-16.0) g/dl Hct 47.0 (37.0-47.0) % MCV 77.7 L (80.0-98.0) fL MCH 24.8 L (27.0-33.0) pg MCHC 31.9 (31.0-35.0) g/dl RDW 19.9 H (11.0-16.0) % Plt Count 117 L D (160-400) X10*3/uL MPV TNP Immature Gran % (Auto) 0.3 (0.0-0.4) % Neut % (Auto) 76.0 H (45-73) % Lymph % (Auto) 13.3 L (20-40) % [place] % (Auto) 7.9 (2-11) % Eos % (Auto) 1.9 (0-4) % Baso % (Auto) 0.6 (0-2) % Lymph # (Auto) 1.2 (1.2-4.9) X10*3/uL [place] # (Auto) 0.7 (0.1-1.2) X10*3/uL Eos # (Auto) 0.2 (0.0-0.4) X10*3/uL Baso # (Auto) 0.1 (0.0-0.2) X10*3/uL Abs Immat Gran (auto) 0.03 (0.00-0.03) X10*3/uL Absolute Neuts (auto) 6.6 (2.0-8.3) x10*3/uL Absolute Nucleated RBC 0.000 (0.0-0.012) X10*3/uL Nucleated RBC % (auto) 0.0 (0.0-0.2) /100WBC PT (9.9-13.0) SEC INR (0.9-1.1) APTT (24.1-38.0) SEC D-Dimer High Sensitivty NG/ML Sodium 131 L (135-145) mmol/L Potassium 3.8 (3.3-5.1) mmol/L Chloride 96 (96-108) mmol/L Carbon Dioxide 24 (22-29) mmol/L Anion Gap 15 (12-20) BUN 15 (9-16) mg/dL Creatinine 0.85 (0.5-1.4) mg/dL Estim Creat Clear Calc 52.9 Estimated GFR > 60 Random Glucose 89 (60-115) mg/dL Calcium 9.7 (8.4-10.2) mg/dL Total Bilirubin 0.5 (0.0-1.0) mg/dL AST 21 (5-31) U/L ALT 8 (0-31) U/L Alkaline Phosphatase 168 H (39-117) U/L Troponin I High Sens 43.9 H (<3.5-17.0) ng/L Total Protein 7.3 (6.5-8.0) g/dL Albumin 3.6 (3.5-5.0) g/dL COVID-19 (RY) (Negative) COVID-19 Clin Com ECG Data ECG #1: Attestation: I personally reviewed and interpreted this ECG as follows: Interpretation: Atrial fibrillation heart rate 91 beats per minute left bundle branch block no acute STT wave changes no change from previous EKG on 01/27/2021 Discharge Plan Discharge Clinical Impression: Chest pain Patient Disposition: Home, Self-Care Instructions: Chest Pain (ED) Additional Instructions: Continue medications and follow-up with cuff setter overlock Report to the ER if worsening of chest pain Prescriptions: No Action albuterol sulfate 90 mcg/actuation HFA aerosol inhaler 2 puff PO Q4H PRN (Reason: Shortness Of Breath) 0RF furosemide 20 mg tablet 40 mg PO BID 0RF apixaban 5 mg tablet 5 mg PO BID 0RF metoprolol succinate 25 mg tablet extended release 24 hr 25 mg PO DAILY 0RF naloxone [Narcan] 4 mg/actuation spray,non-aerosol 1 spray intranasal ONCE PRN0RF
[2021-04-27 23:02] VITALS: BP 115/61; BP 134/81; PULSE 83; PULSE 90; RESP 16; TEMP 36.8; O2SAT 98; O2SAT 99; BMI 18.3
[2021-04-28 00:08] LABS: MANUAL DIFF FLAG NO
[2021-04-28 00:13] LABS: Basophils Absolute Auto 0.1 X10*3/uL (0.0-0.2); Basophils Percent Auto 0.6 % (0-2); Eosinophils Absolute Auto 0.2 X10*3/uL (0.0-0.4); Eosinophils Percent Auto 1.9 % (0-4); Imm Gran Abs Auto 0.03 X10*3/uL (0.00-0.03); Imm Gran Pct Auto 0.3 % (0.0-0.4); Lymphocytes Absolute Auto 1.2 X10*3/uL (1.2-4.9); Lymphocytes Percent Auto 13.3 % (20-40); Mean Corpuscular HGB Conc 31.9 g/dl (31.0-35.0); Mean Corpuscular Hemoglobin 24.8 pg (27.0-33.0); Mean Corpuscular Volume 77.7 fL (80.0-98.0); Monocytes Absolute Auto 0.7 X10*3/uL (0.1-1.2); Monocytes Percent Auto 7.9 % (2-11); Neutrophils Absolute Auto 6.6 x10*3/uL (2.0-8.3); Platelet Count 117 X10*3/uL (160-400); Red Blood Count 6.05 X10*6/uL (4.20-5.50); Red Cell Distribution Width 19.9 % (11.0-16.0); White Blood Count 8.7 X10*3/uL (4.8-10.8)
[2021-04-28 00:17] LABS: INTERNATIONAL NORM RATIO 2.1 (0.9-1.1); Prothrombin Time 23.7 SEC (9.9-13.0)
[2021-04-28 00:20] LABS: COVID-19 Test Negative (Negative); Partial Thromboplastin Time 38.7 SEC (24.1-38.0)
[2021-04-28 00:21] LABS: D Dimer High Sensitivity < 150 NG/ML
[2021-04-28 00:38] LABS: Alanine Aminotransferase 8 U/L (0-31); Albumin Level 3.6 g/dL (3.5-5.0); Alkaline Phosphatase 168 U/L (39-117); Anion Gap 15 (12-20); Aspartate Amino Transferase 21 U/L (5-31); Bilirubin Total 0.5 mg/dL (0.0-1.0); Blood Urea Nitrogen 15 mg/dL (9-16); Calcium 9.7 mg/dL (8.4-10.2); Carbon Dioxide 24 mmol/L (22-29); Chloride 96 mmol/L (96-108); Creatinine Clr Calc Pharmacy 52.9; Estimated Glomerular Filt Rate > 60; Glucose Random 89 mg/dL (60-115); Potassium 3.8 mmol/L (3.3-5.1); Sodium 131 mmol/L (135-145); Total Protein 7.3 g/dL (6.5-8.0)
[2021-04-28 00:49] LABS: Troponin-I High Sensitivity 58.5 ng/L (<3.5-17.0)
--- NOTE | 2021-04-28 00:52 | PC.NURSE ---
Trop 58.5 report off to provider and RN Pricila.
[2021-04-28 00:59] VITALS: BP 98/58; PULSE 98; RESP 16; TEMP 36.8; O2SAT 94
[2021-04-28 02:07] VITALS: BP 84/46; PULSE 87; RESP 16; O2SAT 94
[2021-04-28 02:12] VITALS: BP 86/46; PULSE 73
[2021-04-28 02:37] VITALS: BP 91/56; PULSE 72; RESP 16; O2SAT 94
[2021-04-28 02:56] LABS: Troponin-I High Sensitivity 43.9 ng/L (<3.5-17.0)
--- NOTE | 2021-04-28 04:05 | PC.NURSE ---
Took over pt at 3:15am from JAMMIE Mcnulty. pt denies any sob or chest pain . no n/v at this time. Reviewed discharge instructions. Pt verbalized understanding.
== END 2021-04-28 04:14 | disposition home or self-care (01) ==
PROVIDERS: Emergency Provider Internal Medicine
DX: R07.89 Other chest pain (principal); I48.91 Unspecified atrial fibrillation; F11.10 Opioid abuse, uncomplicated; F17.210 Nicotine dependence, cigarettes, uncomplicated; Z20.822 Contact with and (suspected) exposure to COVID-19; Z71.6 Tobacco abuse counseling; Z79.01 Long term (current) use of anticoagulants; Z79.899 Other long term (current) drug therapy
CPT/HCPCS: 36415; 71045; 80053; 84484; 85025; 85379; 85610; 85730; 87635; 93005; 99284; 99285

== ENCOUNTER → 2021-09-28 12:43 | Outpatient (BNVA) | payer OTHER, SELFPAY | PROVIDERS: PCP Internal Medicine; Visit Provider Internal Medicine Cardiovascular Disease | DX: I48.19 Other persistent atrial fibrillation (principal); I42.1 Obstructive hypertrophic cardiomyopathy; Z79.01 Long term (current) use of anticoagulants; Z79.899 Other long term (current) drug therapy; Z86.74 Personal history of sudden cardiac arrest | CPT/HCPCS: 93005; 99212 ==

== ENCOUNTER 2021-10-14 00:31 | Emergency (ER) | payer OTHER, SELFPAY ==
[2021-10-14 00:31] VITALS: BMI 16.9
--- NOTE | 2021-10-14 02:27 | ED.CPR ---
HPI - CPR General Chief Complaint: Cardiac Arrest/CPR Stated Complaint: code Time Seen by Provider: 10/14/21 00:41 Source: EMS Mode of arrival: EMS Limitations: other (In cardiac arrest) History of Present Illness HPI narrative: Patient comes to the emergency room via EMS and cardiac arrest. Patient is a 55-year-old female with past medical history HOCM status post myomectomy in 2019, Gsplh-Ehalozdby-Kpwin status post ablation, atrial fibrillation on Eliquis with questionable compliance, active substance abuse/heroin, CHF, COPD, recent complicated admission for [id number] pea a cardiac arrest with prolonged ICU course due to difficulty weaning from ventilator and hypotension requiring pressors, ultimately extubated and fitted for LifeVest. Patient was admitted on October 09 and discharged on October 12 from [facility] for a heroin overdose. According to EMS, patient was found unresponsive by a bystander who called EMS. Seems that [employer] fire arrived 1st, patient had agonal breathing, questionable pulses. When action ambulance arrived, patient did not have a pulse, CPR was started. The down time it is unknown. Seems that the patient was found in her residence. Per EMS radio report, no shocked advised patient was in asystole the whole time. BLS picked up the patient and they were unable to intubate the patient in the field. Also, EMS reported that the individual that was at the patient's residency, informed them that the patient has a LifeVest and he had been beeping all day long On arrival to the emergency room, patient was in cardiac arrest, being ventilated via BVM. CPR was in progress, patient was intubated immediately, IO was inserted, 1st dose epinephrine given. Patient was in asystole for the next 15 minutes, in total patient had been in asystole for close to 40 minutes. Related Data Home Medications Medication Instructions Recorded Confirmed apixaban 5 mg tablet 5 mg PO BID 03/18/20 03/16/21 albuterol sulfate 90 mcg/actuation 2 puff PO Q4H PRN Shortness Of 08/19/20 03/16/21 aerosol inhaler Breath naloxone 4 mg/actuation nasal 1 spray intranasal ONCE PRN 03/16/21 03/16/21 spray (Narcan) amiodarone 200 mg tablet 200 mg PO DAILY 09/28/21 fluoxetine 20 mg capsule 20 mg PO DAILY 09/28/21 fluticasone fur. 100 mcg-umeclid 1 ea inhalation DAILY 09/28/21 62.5 mcg-vilant 25 mcg inhalat.powder (Trelegy Ellipta) furosemide 20 mg tablet 20 mg PO BID 09/28/21 gabapentin 300 mg capsule 300 mg PO TID 09/28/21 melatonin 3 mg capsule 3 mg PO BEDTIME PRN 09/28/21 methadone 10 mg tablet 10 mg PO DAILY 09/28/21 pantoprazole 40 mg tablet,delayed 40 mg PO DAILY 09/28/21 release sennosides 8.6 mg-docusate sodium 2 tab PO BEDTIME 09/28/21 50 mg tablet (Senna Plus) Allergies Allergy/AdvReac Type Severity Reaction Status Date / Time No Known Allergies Allergy Verified 03/16/21 13:35 [No Known Allergies*] Review of Systems Review of Systems: Yes Unobtainable due to mental condition [facility] Past Medical History Medical History Congestive heart failure Congestive heart failure COPD (chronic obstructive pulmonary disease) Ex-smoker HOCM (hypertrophic obstructive cardiomyopathy) Paroxysmal atrial fibrillation Persistent atrial fibrillation WPW (Rmjpj-Ehijnlrep-Aywdh syndrome) Surgical History H/O cardiac radiofrequency ablation History of heart surgery (~07/02/18) S/P ventricular septal myectomy Family History Family History Father COPD (chronic obstructive pulmonary disease) Heart disease Mother Heart disease Paternal Grandmother No problems noted. Social History Social History Household Members: Significant Other Housing: Apartment Do you presently have visiting nurse or other home services: No (pt attempting to get reva) Alcohol intake: never Patient Tobacco Use Status: Current everyday Tobacco user Tobacco use type: Cigarette Cigarettes Per Day: 5 Years Smoked: 30 +/- Substance Use Type: Heroin Advance Directives: No service: No Current occupational status: disabled Physical Exam Vital Signs: Vital Signs: BMI result Body Mass Index 16.9 Const: Other: Appearance: Unresponsive Eyes: Pupils equally dilated, round, and reactive to light ENT: Amount of vomit present in the oropharynx Neck: Normal inspection. Neck supple. No lymph nodes noted. No crepitus CVS: CPR in progress, at the 2 minute pulse check ivana, bedside ultrasound shows no cardiac activity Respiratory: Patient now intubated Abdomen: Soft , distended Skin: Skin cold and mottled Extremities: +3 pitting edema Neuro: Unresponsive Psych: Unresponsive Course Course Course Narrative: Patient was in assisted living full-time. Time of was called at 00:44 Patient has a significant cardiac history, and also as significant history of substance abuse. Since the patient had a life vest on which could have been malfunctioning, bystanders state that the [employer] had been beeping all day I attempted calling the patient's healthcare proxy, Jacob Stearns. [place] limit picked up the phone, but denied being Mr. Stearns I called the patient's alternate healthcare agent, her son Cleve Elliott. I informed him of his mother's condition. He is on his way to the hospital The medical review specialist except the case, [phone]. The organ bank declined the case. Patient's 2 sons are at bedside, more family coming in. The family has been made aware not to remove any tubes, a sitter present Discharge Plan Discharge Clinical Impression: Cardiac arrest Patient Disposition: Date/Time: 10/14/21 00:44
--- NOTE | 2021-10-14 02:39 | PC.NURSE ---
At 0112 [facility] Bank declined per primary RN.#[phone]
--- NOTE | 2021-10-14 02:41 | PC.NURSE ---
This [place] called the [employer] at 0224 per ,awaiting a call back at this time.
--- NOTE | 2021-10-14 03:27 | PC.NURSE ---
The [employer] called at [phone] Accepted patient #[id number]. Copy of chart with patient.
[2021-10-15 08:58] LABS: Glucose, Whole Blood 54 mg/dL (60-115)
== END 2021-10-14 05:00 | disposition expired ==
PROVIDERS: Emergency Provider Emergency Medicine
DX: I46.9 Cardiac arrest, cause unspecified (principal); R60.0 Localized edema; I50.9 Heart failure, unspecified; I48.19 Other persistent atrial fibrillation; I42.1 Obstructive hypertrophic cardiomyopathy; I45.6 Pre-excitation syndrome; F11.10 Opioid abuse, uncomplicated; F17.210 Nicotine dependence, cigarettes, uncomplicated
CPT/HCPCS: 82947; 96374; 99282; 99285; J0171